=== PATIENT | male | born 1955 | race Caucasian/White ===

== ENCOUNTER 2017-10-07 13:00 | Outpatient (RCR) | payer OTHER, SELFPAY ==
[2017-03-25 15:58] VITALS: BP 150/67; PULSE 78; RESP 18; TEMP 36.8; O2SAT 97; BMI 34.2
--- NOTE | 2017-03-25 17:43 | CON.PCM_ITS ---
Consult Referring Physician: Pati Amaya Subjective Date of Service:: 03/25/17 Chief Complaint: Asked to see pt for abn labs and splenomegaly. History of Present Illness: Old Records reviewed. 61y.o.man with H/O of HTN and DM was found to have increase urine metanephrines on 749 on 02/12/2017, had a CT a/p done on 03/03/2017 which showed mild splenomegaly. He has had low Platelets for a long time with no bleeding problems and has not required transfusion. PLT was 108 on 01/27/2017. He has Gilbert's Syndrome and Bilirubin was 2.2 on 01/27/2017. He feels well. Health History: Past Medical History Past Medical History: Diabetes mellitus,Hyperlipidemia,Hypertension Other Past Medical History: VITAMIN D DEFICIENT Gilbert's Syndrome Past Surgical History Surgical: Cholecystectomy,Hernia repair,Knee arthroscopy Other Surgical History: spinal surgery cysts removed x3 Family History Paternal Past Medical History: Unknown Maternal Past Medical History: Arthritis,Diabetes mellitus,Hypertension, Obesity Social History Smoking Status Former smoker, drinks a glass of wine daily. Allergies/Adverse Reactions: Allergy/AdvReac Type Severity Reaction Status Date / Time No Known Allergies Allergy Verified 03/25/17 15:53 Home Medications Medication Instructions Recorded Amlodipine Besylate [Norvasc] 5 mg PO DAILY 03/13/17 Hydrochlorothiazide [Hctz] 12.5 mg PO DAILY 03/13/17 Liraglutide [Victoza 3-Donato] 18 units SQ DAILY 03/13/17 Lisinopril [Zestril] 20 mg PO DAILY 03/13/17 Metformin HCl [Metformin HCl ER] 750 mg PO BID 03/13/17 Simvastatin [Zocor] 10 mg PO QHS 03/13/17 Doxycycline Monohydrate [Oracea] 40 mg PO DAILY 03/25/17 Review of Systems Constitutional:: Denies: Fever, Sweats, Weight loss, Appetite change, Chills Cardiovascular:: Denies: Chest pain, Palpitations, Dyspnea on exertion, Orthopnea, PND, Shortness of breath Respiratory: Denies: Cough, Hemoptysis, Shortness of Breath, Wheezing Gastrointestinal:: Denies: Abdominal pain, Nausea, Vomiting, Diarrhea, Constipation, Hematochezia Genitourinary: Denies: Dysuria, Hematuria, 15, Flank pain Musculoskeletal:: Denies: Back pain, Myalgia, Arthralgia Skin: Denies: Rash, Skin Changes, Wounds Neurological:: Denies: Headache, Dizziness, Visual changes, Tinnitus, Hearing loss Psychiatric: Denies: Anxiety, Depression, Homicidal Ideations, Suicidal Ideations Objective Vital Signs Height 1.8 m Weight: 110.45 kg Weight in Pounds 243.0 lbs Pulse Ox 97 Temperature 98.2 F Pulse Rate 78 Respiratory Rate 18 Blood Pressure 150/67 Blood Pressure Position Sitting - Physical Exam General: Alert, Oriented x3, No apparent distress HEENT: Atraumatic, PERRLA, EOMI, Normocephalic Oropharynx:: Dry mucosa Neck:: Supple, Trachea midline. Negative for: JVD, bilateral Cardiac:: Regular rate, Regular rhythm, Normal S1, Normal S2. Negative for: Murmur Lungs: Clear to auscultation, Excusion symmetrical. Negative for: Rhonchi, Wheezes Abdomen:: Bowel sounds x 4, Soft, Non-tender, Non-distended. Negative for: Hepatosplenomegaly Extremities:: Negative for: Cyanosis, Edema Neurological: Neuro grossly intact Skin:: Negative for: Lesions, Rash, Petechiae, Ecchymosis Psychiatric:: Appropriate affect, Euthymic Lymphatics:: Negative for: Cervical lymphadenopathy, Supraclavicular lymphadenopathy, Axillary lymphadenopathy Diagnostic Data: 03/03/2017 CT a/p reviewed with Pt and , shows Splenomegaly with normal adrenal glands. Assessment and Plan Mild Splenomegaly, etiology is unclear at this time and pt is asymptomatic. Gilbert's Syndrome-stable. Increased Urine Metanephrines may be probably due to diet/Alcohol-wine, did not abstain from them before the test. Plan is to do observation. RTC 6 months with cbc, cmp, LDH. Primary Care Provider: Pati Amaya Referring Provider: (1) Splenomegaly Status: Chronic (2) Gilbert syndrome Status: Chronic
[2017-10-07 12:54] VITALS: BP 154/86; PULSE 86; RESP 16; TEMP 37.1; O2SAT 97; BMI 35.1
[2017-10-07 12:59] LABS: Absolute Lymphocyte Count 1.17 X10^3/ul (0.83-4.51); Absolute Neutrophil Count 3.6 X10^3/uL (2.0-7.7); Basophil# 0.01 X10^3/uL; Basophil% 0.2 % (0-1); Eosinophil# 0.08 X10^3/uL; Eosinophils% 1.5 % (0-5); Hematocrit 39.7 % (40-54); Hemoglobin 13.9 g/dl (13.0-16.5); Lymphocyte # 1.17 X10^3/ul (4.0); Lymphocyte % 21.4 % (19-41); Mean Corpuscular Hgb 28.9 pg (27.0-32.0); Mean Corpuscular Volume 82.5 fL (80-94); Monocyte# 0.65 X10^3/uL; Monocyte% 11.9 % (0-10); Neutrophil # 3.55 X10^3/uL (2.7-7.7); Neutrophil % 64.8 % (47-70); Platelet Count 103 K/mm3 (150-450); RBC Distribution Width CV 13.9 % (11.6-14.6); Red Blood Count 4.81 M/mm3 (4.6-6.2); White Blood Count 5.5 K/mm3 (4.4-11.0)
[2017-10-07 13:00] LABS: POSITIVE COUNT NO; POSITIVE DIFFERENTIAL NO; POSITIVE MORPHOLOGY NO
[2017-10-07 13:12] LABS: BUN 19 mg/dL (7-18); Creatinine, Serum 0.95 mg/dL (0.70-1.30); Estimated Creatinine Clearance 81.11 ml/min; Glucose 165 mg/dL (70-110)
[2017-10-07 13:13] LABS: ALB/GLOB Ratio 1.2 RATIO (0.9-2.4); AST(SGOT) 25 U/L (15-37); Alanine Aminotransfer ALT/SGPT 50 U/L (16-61); Albumin, Serum 4.2 g/dL (3.2-5.0); Alkaline Phosphatase 55 U/L (45-117); Anion Gap 10 (5-15); BUN/Creat Ratio 20.1 RATIO (10-20); Calcium,Total 9.3 mg/dL (8.5-10.1); Chloride 100 mmol/L (98-107); EST Glomerular Filtration Rate 85 mL/min (>60); Est Glom Filt Rate - Afr Amer 103 mL/min (>60); Globulin 3.4 g/dL (2.2-4.2); LDH 181 U/L (87-241); Protein, Total 7.6 g/dL (6.4-8.2); Sodium Level 136 mmol/L (136-145)
--- NOTE | 2017-10-07 13:31 | PN_ITS ---
- Date of Service Date of Service:: 10/07/17 - Chief Complaint F/u for Thrombocytopenia and splenomegaly. - History of Present Illness Old Records reviewed. 61y.o.man with H/O of HTN and DM was found to have increase urine metanephrines on 749 on 02/12/2017, had a CT a/p done on 03/03/2017 which showed mild splenomegaly and normal adrenal glands. He has had low Platelets for a long time with no bleeding problems and has never required transfusion. PLT was 108 on 01/27/2017. He has Gilbert's Syndrome and Bilirubin was 2.2 on 01/27/2017. Urine metanephrines was thought to be due to improper collection as he did not abstain from wine/alcohol. Comes for follow up. He feels well. Denies weight loss, fever, n/v or abdominal pain. - Past Medical/Social History Past Medical History Past Medical History: Diabetes mellitus,Hyperlipidemia,Hypertension Other Past Medical History: VITAMIN D DEFICIENT Kennedy Syndrome Past Surgical History Surgical: Cholecystectomy,Hernia repair,Knee arthroscopy Other Surgical History: spinal surgery cysts removed x3 Family History Paternal Past Medical History: Unknown Maternal Past Medical History: Arthritis,Diabetes mellitus,Hypertension, Obesity Social History Smoking Status Former smoker Review of Systems Constitutional:: Denies: Fever, Sweats, Weight loss, Appetite change, Chills Cardiovascular:: Denies: Chest pain, Palpitations, Dyspnea on exertion, Orthopnea, PND, Shortness of breath Respiratory: Denies: Cough, Hemoptysis, Shortness of Breath, Wheezing Gastrointestinal:: Denies: Abdominal pain, Nausea, Vomiting, Diarrhea, Constipation, Hematochezia Genitourinary: Denies: Dysuria, Hematuria, 15, Flank pain Musculoskeletal:: Denies: Back pain, Myalgia, Arthralgia Skin: Denies: Rash, Skin Changes, Wounds Neurological:: Denies: Headache, Dizziness, Visual changes, Tinnitus, Hearing loss Psychiatric: Denies: Anxiety, Depression, Homicidal Ideations, Suicidal Ideations Vital Signs Height 5 ft 10.75 in Weight: 113.398 kg Weight in Pounds 250.0 lbs Pulse Ox 97 Temperature 98.8 F Pulse Rate 86 Respiratory Rate 16 Blood Pressure 154/86 Blood Pressure Position Sitting - Physical Exam General: Alert, Oriented x3, No apparent distress Laboratory Data: Laboratory Tests 3 10/07/17 10/07/17 Range/Units 12:31 12:30 WBC 5.5 (4.4-11.0) K/mm3 RBC 4.81 (4.6-6.2) M/mm3 Hgb 13.9 (13.0-16.5) g/dl Hct 39.7 L (40-54) % MCV 82.5 (80-94) fL MCH 28.9 (27.0-32.0) pg MCHC 35.0 (32-36) g/gl RDW 13.9 (11.6-14.6) % RDW Differential 42.0 (35.1-43.9) fl Plt Count 103 L (150-450) K/mm3 MPV 9.0 (6.2-12.0) fl Immature Gran % (Auto) 0.200 (0.0-0.9) % Neut % (Auto) 64.8 (47-70) % Lymph % (Auto) 21.4 (19-41) % Guthrie % (Auto) 11.9 H (0-10) % Eos % (Auto) 1.5 (0-5) % Baso % (Auto) 0.2 (0-1) % Absolute Neuts (auto) 3.6 (2.0-7.7) X10^3/uL Absolute Lymphs (auto) 1.17 (0.83-4.51) X10^3/ul Total Counted Not Reportable Sodium 136 (136-145) mmol/L Potassium 4.0 (3.5-5.1) mmol/L Chloride 100 (98-107) mmol/L Carbon Dioxide 26.0 (21.0-32.0) mmol/L Anion Gap 10 (5-15) BUN 19 H (7-18) mg/dL Creatinine 0.95 (0.70-1.30) mg/dL Estim Creat Clear Calc 81.11 ml/min Est GFR (MDRD) Af Amer 103 (>60) mL/min Est GFR (MDRD) Non-Af 85 (>60) mL/min BUN/Creatinine Ratio 20.1 H (10-20) RATIO Glucose 165 H (70-110) mg/dL Calcium 9.3 (8.5-10.1) mg/dL Total Bilirubin 2.60 H (0.20-1.00) mg/dL AST 25 (15-37) U/L ALT 50 (16-61) U/L Alkaline Phosphatase 55 (45-117) U/L Lactate Dehydrogenase 181 (87-241) U/L Total Protein 7.6 (6.4-8.2) g/dL Albumin 4.2 (3.2-5.0) g/dL Globulin 3.4 (2.2-4.2) g/dL Albumin/Globulin Ratio 1.2 (0.9-2.4) RATIO Assessment and Plan Chronic thrombocytopenia-clinically stable, PLT 103 today. Mild splenomegaly-clinically stable. Gilbert's disease, clinically stable. Discussed clinical problems with pt, observation is appropriate now. Plan is to continue follow up with PCP, can be referred if new problems arise or Platelets decrease to 50K or less. RTC prn. Medications: Prescriptions This Visit Medication Instructions Recorded Amlodipine Besylate [Norvasc] 5 mg PO DAILY 03/13/17 Hydrochlorothiazide [Hctz] 12.5 mg PO DAILY 03/13/17 Liraglutide [Victoza 3-Donato] 18 units SQ DAILY 03/13/17 Lisinopril [Zestril] 20 mg PO DAILY 03/13/17 Metformin HCl [Metformin HCl ER] 750 mg PO BID 03/13/17 Simvastatin [Zocor] 10 mg PO QHS 03/13/17 Doxycycline Monohydrate [Oracea] 40 mg PO DAILY 03/25/17 Bupropion HCl [Bupropion Xl] 300 mg PO 10/07/17 Primary Care Provider: Pati Amaya Referring Provider: Taiwo Larkin MD (1) Splenomegaly Status: Chronic (2) Gilbert syndrome Status: Chronic Code Visit Office Visits / Consults: 00611 OV L3 Est
[2017-10-07 20:30] LABS: Xtra Tube EP Lab EXTRA TUBE
== END 2017-10-09 12:25 | disposition home or self-care (01) ==
LOC: OMD 13:00
PROVIDERS: Family Provider Internal Medicine; PCP Internal Medicine; Visit Provider Internal Medicine Medical Oncology
DX: E80.4 Gilbert syndrome (principal); R16.1 Splenomegaly, not elsewhere classified
CPT/HCPCS: 36415; 80053; 83615; 85025

== ENCOUNTER 2017-12-23 17:31 | Inpatient (IN) | payer OTHER, SELFPAY ==
[2017-12-23] VITALS (8 sets, daily range): BP systolic 124–173; BP diastolic 70–75; PULSE 95–126; RESP 17–28; TEMP 37.2–38.5; O2SAT 92–96; BMI 35.9; BMI 36.0
--- NOTE | 2017-12-23 18:02 | EKG12_ITS ---
Test Reason : COMPLAINT Blood Pressure : / mmHG Vent. Rate : 118 BPM Atrial Rate : 118 BPM P-R Int : 170 ms QRS Dur : 112 ms QT Int : 332 ms P-R-T Axes : 022 -36 046 degrees QTc Int : 465 ms Sinus tachycardia Left axis deviation Abnormal ECG Confirmed by THALIA BLANDON, FÉLIX ([id number]), editor dictionary LUIS E ROMERO ([id number]) on 12/29/2017 3:12:55 PM Referred By: CLINTON Confirmed By:FÉLIX VÁSQUEZ MD
--- NOTE | 2017-12-23 18:07 | RAD_ITS ---
STUDY: X-RAY CHEST REASON FOR EXAM: Male, 62 years old. Urinary tract infection. Nausea. Abdominal pain. TECHNIQUE: Single AP portable view of the chest. COMPARISON: None. FINDINGS: The lungs are clear and expanded. There is elevation of the right hemidiaphragm. There is no demonstrated pleural abnormality. Normal size heart. Normal mediastinum and hemalatha. Normal visualized pulmonary arteries. Normal visualized aortic arch and descending thoracic aorta. Mild degenerative change of the spine and left shoulder. There is no demonstrated abnormality of the visualized soft tissue structures of the upper abdomen. RAD/Chest 1 View (Portable) IMPRESSION: Degenerative changes, as described above. No demonstrated acute cardiopulmonary process. Electronically Signed: Demar Selby MD at 19:03 EDT , Service support ,
--- NOTE | 2017-12-23 18:20 | NURSING ---
NO OLD EKGS
[2017-12-23] MEDS: 0.9% Normal Saline 1,000 ML 150 ML IV ×2 (18:35→22:58)
[2017-12-23] MEDS: Morphine 4 MG/ML Syringe IV (18:58)
[2017-12-23 19:00] LABS: ALB/GLOB Ratio 0.9 RATIO (0.9-2.4); AST(SGOT) 28 U/L (15-37); Alanine Aminotransfer ALT/SGPT 27 U/L (16-61); Albumin, Serum 3.4 g/dL (3.2-5.0); Alkaline Phosphatase 64 U/L (45-117); Anion Gap 12 (5-15); BUN 28 mg/dL (7-18); BUN/Creat Ratio 14.7 RATIO (10-20); Calcium,Total 8.7 mg/dL (8.5-10.1); Chloride 100 mmol/L (98-107); EST Glomerular Filtration Rate 38 mL/min (>60); Est Glom Filt Rate - Afr Amer 46 mL/min (>60); Estimated Creatinine Clearance 40.56 ml/min; Globulin 3.7 g/dL (2.2-4.2); Glucose 215 mg/dL (74-106); International Normalized Ratio 1.3; Potassium 3.3 mmol/L (3.5-5.1); Protein, Total 7.1 g/dL (6.4-8.2); Prothrombin Time (Protime)PT. 16.2 SECONDS (11.7-14.9); Sodium Level 134 mmol/L (136-145)
[2017-12-23 19:01] LABS: Absolute Lymphocyte Count 0.55 X10^3/ul (0.83-4.51); Absolute Neutrophil Count 8.6 X10^3/uL (2.0-7.7); Basophil# 0.01 X10^3/uL; Basophil% 0.1 % (0-1); Eosinophil# 0.01 X10^3/uL; Eosinophils% 0.1 % (0-5); Hematocrit 34.8 % (40-54); Hemoglobin 12.4 g/dl (13.0-16.5); Lactic Acid 1.8 mmol/L (0.4-2.0); Lymphocyte # 0.55 X10^3/ul (4.0); Lymphocyte % 5.3 % (19-41); Mean Corp Hgb Conc 35.6 g/gl (32-36); Mean Corpuscular Hgb 29.7 pg (27.0-32.0); Mean Corpuscular Volume 83.3 fL (80-94); Mean Platelet Vol. 10.1 fl (6.2-12.0); Monocyte# 1.18 X10^3/uL; Monocyte% 11.4 % (0-10); Neutrophil # 8.58 X10^3/uL (2.7-7.7); Neutrophil % 82.9 % (47-70); Partial Thromboplast Time 40.1 Seconds (24.1-36.2); Platelet Count 91 K/mm3 (150-450); RBC Distribution Width CV 13.5 % (11.6-14.6); RBC Distribution Width SD 40.2 fl (35.1-43.9); Red Blood Count 4.18 M/mm3 (4.6-6.2); White Blood Count 10.4 K/mm3 (4.4-11.0)
[2017-12-23 19:02] LABS: Differential Indicated SCAN CRITERIA MET; POSITIVE COUNT NO; POSITIVE DIFFERENTIAL YES; POSITIVE MORPHOLOGY NO
[2017-12-23 19:08] LABS: Mucous, Urine 0 SEEN /hpf (<or=2+)
--- NOTE | 2017-12-23 19:09 | CT_ITS ---
STUDY: CT ABDOMEN AND PELVIS WITHOUT CONTRAST REASON FOR EXAM: Male, 62 years old. Urinary tract infection. Difficulty urinating. RADIATION DOSAGE (If Supplied By Facility): CTDIvol = ( 21.37 ) mGy, DLP = ( 1195.95 ) mGycm TECHNIQUE: Transaxial images were obtained from the dome of the diaphragm to the symphysis pubis without oral contrast, and without intravenous contrast. Sagittal and coronal images were reconstructed. Individualized dose optimization techniques were used for this CT. COMPARISON: August 07, 2016. FINDINGS: The visualized lung bases are unremarkable. The visualized portions of the heart are within normal limits. There is hepatomegaly with diffuse hepatic enlargement. There is non-visualization of the gallbladder, which may be secondary to either contraction or a prior cholecystectomy. There is moderate splenomegaly. Normal pancreas. Normal bilateral adrenal glands. Normal right kidney. Normal left kidney. No stones or hydronephrosis. Normal visualized stomach. Normal small intestine. There are multiple colonic diverticula consistent with diverticulosis. The appendix is visualized and appears normal. Normal abdominal aorta. Normal inferior vena cava. Normal retroperitoneum. Boucher catheter in the urinary bladder. There is wall thickening. There is adjacent edema. There is no free fluid in the abdomen or pelvis. Normal abdominal wall. Arthritic change of the spine, hips, and sacroiliac joints. CT/Abdomen/Pelvis without Cont IMPRESSION: Wall thickening of the urinary bladder with adjacent edema consistent with cystitis. There is no hydronephrosis. Colonic diverticulosis. No obstruction or abscess. Hepatosplenomegaly. Electronically Signed: Demar Selby MD at 20:34 EDT , Service support ,
[2017-12-23 19:11] LABS: Color, Urine Yellow (Yellow); Glucose, Dipstick Normal (Normal); Ketone-Dipstick 5 mg/dl (Negative); Leukocyte Esterase-Dipstick 500 /ul (Negative); Nitrite-Dipstick Positive (Negative); Occult Blood-Urine 150 /ul (Negative); Protein-Dipstick 500 mg/dl (Negative); Specific Gravity, Urine 1.025 (1.002-1.030); Urine Clarity Cloudy (Clear); Urine Urobilinogen 1 mg/dl (Normal)
[2017-12-23 19:13] LABS: Urine Bilirubin Dipstick 1 mg/dL (Negative)
[2017-12-23 19:15] LABS: Red Blood Cells-Urine 0-5 SEEN /hpf (0-5); Squamous Epithelial Cells - UA 0-5 SEEN /hpf (0-5); Transitional Epithelial - Ur 0-5 SEEN /hpf (0-5); White Blood Cells 50-100 SEEN /hpf (0-5)
[2017-12-23 19:16] LABS: Amorphous Sediment 1+; Bacteria 3+ /hpf (None Seen); Hyaline Cast 0-5 SEEN /lpf (0-5)
[2017-12-23 19:35] LABS: Differential Comment SCANNED
--- NOTE | 2017-12-23 22:19 | PCM.HP.STD ---
Problem List (1) Dysuria Status: Acute (2) Urinary frequency Status: Acute (3) Chills with fever Status: Acute History of Present Illness Date of Admission: 12/23/17 Chief Complaint: Chills, fever, dysuria, urinary frequency The patient is a 62 year old M seen in the emergency room at [facility] with chief complaint of fever, chills, dysuria, and urinary frequency ?2 days. Patient denied any hematuria. Patient began having symptoms while on a business trip but did not seek medical attention until he got back into town today, he was told to go to the emergency room by his family physician. Evaluation in the emergency room included labs which were remarkable for a bilirubin of 6.4, BUN was elevated at 29, creatinine was 1.9, potassium was 3.3, platelet count was 91,000, glucose was 215, and UA showed +3 bacteria and 50-100 WBCs. Patient met criteria for sepsis from acute cystitis, patient's platelet count was 91,000 but he did not meet severe sepsis criteria as he has had a low platelet count before as baseline. He has also had an increased bilirubin due to Guilbert syndrome normally.. Patient was given IV Zosyn in the emergency room, patient will be admitted to [facility], he will be placed on IV Rocephin, patient had a catheter placed in the emergency room due to low urinary output, catheter will remain in for now and I will put the patient on Flomax as he is having some urinary hesitancy at home normally. Past Medical History Past Medical History (Chronic Problems): Chronic Problems (Last Updated 09/29/17 @ 15:20 by Jessica Henry) Gilbert syndrome (Chronic) Splenomegaly (Chronic) Allergies No Known Allergies Allergy (Verified 12/23/17 17:33) Home Medications: Ambulatory Orders Medication Instructions Recorded Amlodipine Besylate [Norvasc] 5 mg PO DAILY 03/13/17 Hydrochlorothiazide [Hctz] 12.5 mg PO DAILY 03/13/17 Liraglutide [Victoza 3-Donato] 18 units SQ DAILY 03/13/17 Lisinopril [Zestril] 20 mg PO BID 03/13/17 Metformin HCl [Metformin HCl ER] 750 mg PO BID 03/13/17 Simvastatin [Zocor] 10 mg PO DAILY 03/13/17 Doxycycline Monohydrate [Oracea] 40 mg PO DAILY 03/25/17 Cholecalciferol (Vitamin D3) 5,000 unit PO DAILY 12/23/17 [Vitamin D3] Cyanocobalamin (Vitamin B-12) 5,000 mcg PO DAILY 12/23/17 [Vitamin B12] Tumeric 500 12/23/17 Surgical History: cholecystectomy, herniorrhaphy, - - Lumbar spine surgery for herniated disc, arthroscopy of the knee Psychiatric History: No pertinent psych hx Lives: Spouse/ Significant Other Smoking Status: Former smoker Tobacco Use: Non-smoker Alcohol: Occasional Drugs: None - *Family History Maternal History Items: Diabetes, Hypertension, No pertinent history Paternal History Items: No pertinent history Review of Systems Constitutional: Reports: Chills, Fever. Denies: Anorexia, Night Sweats, Malaise, Weakness, Weight Change, Fatigue Eyes: Denies: Blurred vision, Cataracts, Conjunctivae Inflammation, Double vision, Drainage HEENT: Denies: Difficulty Hearing, Difficulty Swallowing, Dysphasia, Ear Pain, Eye Pain, Head Aches, Hearing Changes, Nasal bleeding, Nasal Congestion, Post Nasal Drip Cardiovascular: Denies: Chest Pain, Claudication, Chest Pressure, Chest Tightness, Edema, Orthopnea, Palpitations, Paroxysmal Noc. Dyspnea Respiratory: Denies: Hemoptysis, Pleuritic Pain, Shortness of Breath, Shortness of breath upon exertion, Sputum production, Wheezing Gastrointestinal: Denies: Abdominal Pain, Constipation, Diarrhea, Hematemesis, Hematochezia, Nausea Genitourinary: Reports: Dysuria, Frequency, Hesitancy, Urgency. Denies: Hematuria, Incontinence, Nocturia, Retention Musculoskeletal: Denies: Arm Pain, Back Pain, Foot Pain, Hand Pain, Joint stiffness, Joint swelling, Joint Tenderness Skin: Denies: Dryness, Jaundice, Pruritis, Rash Neurological: Denies: Blurred vision, Double vision, Change in Speech, Slurred speech, Focal weakness, Headaches, Incoordination, Numbness Psychiatric: Denies: Anxiety, Depression, Homicidal Ideations, Suicidal Ideations Endocrine: Denies: Change in Body Habitus, Heat/ Cold Intolerance, Polydipsia, Polyuria, Hx of Irradiation Hematologic/ Lymphatic: Denies: Adenopathy, Easy Bruising, Petechiae, Purpura VTE Information - Inpt Only VTE Present on Admission: No VTE Mechan Device Prophylaxis: SCD's VTE Pharm Prophylaxis ordered?: No Reason prophylaxis not ordered:: Treatment Not Indicated Patient Problems: Active and Suspected Problems (Last Updated 09/29/17 @ 15:20 by Jessica Henry) Dysuria (Acute) Urinary frequency (Acute) Chills with fever (Acute) - Physical Exam General: Alert, Oriented x3, Cooperative, No apparent distress, Well developed, Well nourished HEENT: Atraumatic, PERRLA, EOMI, Normocephalic Oral: Moist Mucosa Neck: Supple, No JVD, Negative Carotid Bruits, No Nuchal Rigidity, Trachea Midline, Thyroid Normal Size and Texture Lungs: Clear to auscultation, Normal air movement, No rhonchi, No wheeze, No rales Cardiovascular: Regular rate, Regular Rhythm, Normal S1, Normal S2, No murmurs, No Ectopic Activity, PMI Normal, No rub noted, No Gallop Abdomen: Bowel Sounds Present, Soft, Non Tender, Non-Distended, No hernias noted Extremities: No clubbing, No cyanosis, No edema, Capillary Refill Less than 3 Seconds Skin: No rashes, No breakdown Musculoskeletal: No Tenderness to Palpation of Joints or Extremities, No Muscle Wasting Neurological: Cranial nerves II-XII grossly intact, Neuro grossly intact, Muscle tone normal, Sensory exam intact to light touch and pain, Coordination normal Psych/Mental Status: Normal Affect, Appropriate, Alert and oriented to time, place, person, mood and affect Vital Signs Temp Pulse Resp BP Pulse Ox 99.3 F H 100 28 H 124/75 H 92 12/23/17 18:31 12/23/17 22:00 12/23/17 22:00 12/23/17 22:00 12/23/17 22:00 Oxygen Delivery Method Room Air Assessment/Plan Active and Suspected Problems (Last Updated 09/29/17 @ 15:20 by Jessica Henry) Dysuria (Acute) Urinary frequency (Acute) Chills with fever (Acute) #1 acute sepsis secondary to acute cystitis-patient will be admitted to [facility], IV Rocephin will be administered, labs will be monitored, fluids will be administered. #2 acute cystitis-probably secondary to gram-negative bacteria, patient will be placed on Rocephin IV #3 thrombocytopenia-chronic #4 acute kidney injury-patient will be given IV fluids, labs will be rechecked, patient will be kept off his hydrochlorothiazide #5 Hyperbilirubinemia secondary to Gilbert's syndrome #6 type 2 diabetes-patient will be kept on metformin, sliding scale insulin will be given, his Victoza will be held #7 BPH-patient will be placed on Flomax Code Visit Inpatient E&M: 60782 Init Hosp L3
[2017-12-23 22:41] LABS: Bedside Glucose 177 mg/dL (70-110)
[2017-12-23] MEDS: Lisinopril 20 MG Tablet PO (23:10)
[2017-12-23] MEDS: Tamsulosin HCl 0.4 MG Capsule PO (23:10)
[2017-12-24] MEDS: Acetaminophen 325 MG Tablet 650 MG PO ×3 (00:19→18:11)
[2017-12-24 04:37] VITALS: BP 130/66; PULSE 78; RESP 16; TEMP 36.6; O2SAT 93
[2017-12-24] MEDS: 0.9% NaCl Peripheral Flush Adult/Peds IV (04:40)
[2017-12-24] MEDS: 0.9% Normal Saline 1,000 ML 150 ML IV ×3 (04:41→18:10)
[2017-12-24 04:48] LABS: Absolute Lymphocyte Count 1.02 X10^3/ul (0.83-4.51); Absolute Neutrophil Count 6.3 X10^3/uL (2.0-7.7); Basophil# 0.01 X10^3/uL; Basophil% 0.1 % (0-1); Eosinophil# 0.06 X10^3/uL; Eosinophils% 0.7 % (0-5); Hematocrit 29.1 % (40-54); Hemoglobin 10.4 g/dl (13.0-16.5); Lymphocyte # 1.02 X10^3/ul (4.0); Lymphocyte % 12.1 % (19-41); Mean Corp Hgb Conc 35.7 g/gl (32-36); Mean Corpuscular Hgb 30.1 pg (27.0-32.0); Mean Corpuscular Volume 84.3 fL (80-94); Mean Platelet Vol. 9.1 fl (6.2-12.0); Monocyte# 1.05 X10^3/uL; Monocyte% 12.5 % (0-10); Neutrophil # 6.26 X10^3/uL (2.7-7.7); Neutrophil % 74.2 % (47-70); Platelet Count 68 K/mm3 (150-450); RBC Distribution Width CV 13.5 % (11.6-14.6); RBC Distribution Width SD 39.9 fl (35.1-43.9); Red Blood Count 3.45 M/mm3 (4.6-6.2); White Blood Count 8.4 K/mm3 (4.4-11.0)
[2017-12-24 04:50] LABS: POSITIVE COUNT NO; POSITIVE DIFFERENTIAL NO; POSITIVE MORPHOLOGY NO
[2017-12-24 05:19] LABS: AST(SGOT) 23 U/L (15-37); Alanine Aminotransfer ALT/SGPT 24 U/L (16-61); Albumin, Serum 2.6 g/dL (3.2-5.0); Alkaline Phosphatase 49 U/L (45-117); Anion Gap 10 (5-15); BUN 30 mg/dL (7-18); BUN/Creat Ratio 18.4 RATIO (10-20); Bilirubin, Direct 0.61 mg/dL (0.00-0.30); Calcium,Total 7.9 mg/dL (8.5-10.1); Chloride 103 mmol/L (98-107); Creatinine, Serum 1.63 mg/dL (0.70-1.30); EST Glomerular Filtration Rate 45 mL/min (>60); Est Glom Filt Rate - Afr Amer 55 mL/min (>60); Estimated Creatinine Clearance 47.27 ml/min; Globulin 3.2 g/dL (2.2-4.2); Glucose 150 mg/dL (74-106); Potassium 2.9 mmol/L (3.5-5.1); Protein, Total 5.8 g/dL (6.4-8.2); Sodium Level 137 mmol/L (136-145)
[2017-12-24 07:00] LABS: Bedside Glucose 191 mg/dL (70-110)
[2017-12-24 09:34] VITALS: BP 130/70; PULSE 86; RESP 16; TEMP 36.9; O2SAT 96
--- NOTE | 2017-12-24 09:42 | PN_ITS ---
Patient Problems: Active and Suspected Problems (Last Updated 09/29/17 @ 15:20 by Jessica Henry) Dysuria (Acute) Urinary frequency (Acute) Chills with fever (Acute) Subjective: Is a 62-year-old male with a past medical history of Gillbert's syndrome, DM II , chronic thrombocytopenia and splenomegaly who presented to the emergency room at [facility] on 12/23/2017 complaining of fever, chills, dysuria and urinary frequency. Vital signs at presentation to the emergency room were temperature 101.3, pulse rate 126, blood pressure 173/73, respiratory rate 18 and he was 95% saturated on room air. White blood cell count was 10.4 with a left shift. Hemoglobin is low at 12.4 and platelets were low at 91,000. Review of old records shows that platelets are chronically low. Potassium was low at 3.3 and the BUN was 28 with a creatinine of 1.9. Creatinine in September 2017 was 0.95. Blood and urine cultures were sent from the emergency room. Chest x-ray shows no evidence of infiltrates or pleural effusions. CT scan of the abdomen showed wall thickening of the urinary bladder with adjacent edema consistent with cystitis. There is no evidence of hydronephrosis. He does have colonic diverticulosis and hepatosplenomegaly. He was admitted to the hospital with severe sepsis with acute kidney injury and started on Rocephin. Temp today is 97.8. Vital signs are stable. He is 93-95% saturated on room air. Fluid balance is +577 since admission. Lab was personally reviewed. White blood cell count is 8.4 with 74% neutrophils today. Hemoglobin is 10.4 and platelets are 68,000, down from 91, 000 at admission. Sodium is normal today but the potassium is 2.9. Creatinine has decreased to 1.63 with hydration. Total bilirubin is 4, down from 6.4 at admission and he has a known history of Gilbert's disease. Tells me that he has had a urethral dilation in the past. He feels he does not completely empty his bladder. Has not seen a urologist in the past several years. PSA 2 years ago was normal. Denies N/V/D/abdominal pain/back pain. No cough and no SOB. No pelvic pain. - Physical Exam General: Alert, Oriented x3, Cooperative, No apparent distress, Well developed, Well nourished HEENT: Atraumatic, PERRLA, EOMI, Normocephalic, - - he has scleral icterus Oral: No Gingival or Mucosal Lesions/ Ulcerations, Dry Mucosa Neck: Supple, No Nodes, Trachea Midline Lungs: Clear to auscultation, No rhonchi, No wheeze, No rales Cardiovascular: Regular rate, Regular Rhythm, Normal S1, Normal S2, No murmurs, No rub noted, No Gallop Abdomen: Bowel Sounds Present, Soft, Non Tender, Non-Distended, Obese, - - negative flank pain Extremities: No clubbing, No cyanosis, No edema Skin: No rashes, - - + jaundice Neurological: Cranial nerves II-XII grossly intact, Neuro grossly intact Psych/Mental Status: Normal Affect, Appropriate Vital Signs Temp Pulse Resp BP Pulse Ox 97.8 F 78 16 130/66 H 93 12/24/17 04:37 12/24/17 04:37 12/24/17 04:37 12/24/17 04:37 12/24/17 04:37 Oxygen Delivery Method Room Air Weight: 250 lb 14.177 oz Body Mass Index (BMI) 36.0 Intake and Output for Last 24 Hours 12/22/17 12/23/17 12/24/17 23:59 23:59 23:59 Intake Total 176 / 176 701 / 701 Output Total 150 / 150 150 / 150 Balance 551 / 551 Laboratory Tests Past 24 Hrs 12/24/17 12/24/17 04:40 04:40 WBC 8.4 RBC 3.45 L Hgb 10.4 L Hct 29.1 L MCV 84.3 MCH 30.1 MCHC 35.7 RDW 13.5 RDW Differential 39.9 Plt Count 68 L MPV 9.1 Immature Gran % (Auto) 0.400 Neut % (Auto) 74.2 H Lymph % (Auto) 12.1 L Lipscomb % (Auto) 12.5 H Eos % (Auto) 0.7 Baso % (Auto) 0.1 Absolute Neuts (auto) 6.3 Absolute Lymphs (auto) 1.02 Total Counted Not Reportable Sodium 137 Potassium 2.9 L Chloride 103 Carbon Dioxide 24.0 Anion Gap 10 BUN 30 H Creatinine 1.63 H Estim Creat Clear Calc 47.27 Est GFR (MDRD) Af Amer 55 L Est GFR (MDRD) Non-Af 45 L BUN/Creatinine Ratio 18.4 Glucose 150 H Calcium 7.9 L Total Bilirubin 4.00 H Direct Bilirubin 0.61 H AST 23 ALT 24 Alkaline Phosphatase 49 Total Protein 5.8 L Albumin 2.6 L Globulin 3.2 POC Glucose 12/24/17 12/23/17 06:52 22:32 POC Glucose 191 H 177 H Medical Necessity - Tobacco Use Smoking Status: Former smoker Tobacco Use: Non-smoker Assessment/Plan Active and Suspected Problems (Last Updated 09/29/17 @ 15:20 by Jessica Henry) Dysuria (Acute) Urinary frequency (Acute) Chills with fever (Acute) Impressions 1. Severe sepsis due to UTI with SWAPNA 2. SWAPNA due to sepsis 3. probable BPH - ? obstruction? Catheter was placed in the ER due to low urine output.....not for high residual? Started on Flomax. 4. Hx of a urethral stricture in the past- S/P remote dilation 5. Gilbert's disease with jaundice and scleral icterus 6. splenomegaly 7. HTN 8. DM [id number] with a hemoglobin A1c of 6.9 9. morbid obesity 10. Hypokalemia 11. Chronic thrombocytopenia-likely related to splenomegaly 12. Normochromic normocytic anemia of unknown etiology Supplement the potassium check a MAG continue hydration Continue Rocephin Recheck lab in the a.m. SCDs and heparin 5000 units twice daily for DVT prophylaxis. Will need to monitor platelets closely. Await the results of the culture Voiding trial prior to DC.....if he retains will need to follow up with urology because he may have a recurrent urethral stricture...there is thickening of the bladder wall. Code Visit Inpatient E&M: 50408 Subs Hosp L3
[2017-12-24 10:03] LABS: Magnesium 1.9 mg/dL (1.6-2.6)
[2017-12-24] MEDS: amLODIPine 5 MG Tablet PO (10:16)
[2017-12-24] MEDS: Lisinopril 20 MG Tablet PO ×2 (10:16→21:32)
[2017-12-24 10:17] LABS: Hemoglobin A1c 6.9 % (4.2-6.3)
[2017-12-24] MEDS: Heparin Injection (Vial) 5,000 UNIT/ML VIAL 5000 UNIT SC ×2 (10:47→21:31)
[2017-12-24 12:51] LABS: Bedside Glucose 272 mg/dL (70-110)
[2017-12-24 14:24] VITALS: BP 116/64; PULSE 87; RESP 16; TEMP 37.3; O2SAT 95
--- NOTE | 2017-12-24 14:39 | CASEMGMT ---
See RN CM Assessment Link. DC Plan: Home. Pt denies dc needs. Guillermo MADRIGAL RN ACM
[2017-12-24] MEDS: Tamsulosin HCl 0.4 MG Capsule PO (17:11)
[2017-12-24 17:51] VITALS: BP 142/83; PULSE 94; RESP 16; TEMP 36.9; O2SAT 97
[2017-12-24 19:03] VITALS: TEMP 37.7
[2017-12-24 19:54] VITALS: BP 140/73; PULSE 95; RESP 18; TEMP 37; O2SAT 93
[2017-12-24] MEDS: Atorvastatin Calcium 10 MG Tablet 5 MG PO (21:31)
[2017-12-24 21:41] LABS: Bedside Glucose 244 mg/dL (70-110)
[2017-12-24 22:51] LABS: Bedside Glucose 193 mg/dL (70-110)
[2017-12-25] MEDS: 0.9% Normal Saline 1,000 ML 150 ML IV ×2 (00:14→06:09)
[2017-12-25] MEDS: Acetaminophen 325 MG Tablet 650 MG PO ×3 (00:14→12:16)
[2017-12-25 02:30] VITALS: BP 130/75; PULSE 78; RESP 16; TEMP 36.9; O2SAT 97
[2017-12-25 07:16] LABS: Bedside Glucose 186 mg/dL (70-110)
[2017-12-25 07:37] LABS: Hematocrit 30.2 % (40-54); Hemoglobin 10.7 g/dl (13.0-16.5); Mean Corp Hgb Conc 35.4 g/gl (32-36); Mean Corpuscular Hgb 29.6 pg (27.0-32.0); Mean Corpuscular Volume 83.4 fL (80-94); Mean Platelet Vol. 9.8 fl (6.2-12.0); Platelet Count 71 K/mm3 (150-450); RBC Distribution Width SD 38.8 fl (35.1-43.9); Red Blood Count 3.62 M/mm3 (4.6-6.2); White Blood Count 3.9 K/mm3 (4.4-11.0)
[2017-12-25 07:43] LABS: Scan Indicated on CBC? Y/N NO
[2017-12-25 07:49] LABS: Anion Gap 9 (5-15); BUN 17 mg/dL (7-18); BUN/Creat Ratio 18.7 RATIO (10-20); Calcium,Total 7.9 mg/dL (8.5-10.1); Chloride 106 mmol/L (98-107); Creatinine, Serum 0.91 mg/dL (0.70-1.30); EST Glomerular Filtration Rate 89 mL/min (>60); Est Glom Filt Rate - Afr Amer 108 mL/min (>60); Estimated Creatinine Clearance 84.68 ml/min; Glucose 180 mg/dL (74-106); Potassium 3.2 mmol/L (3.5-5.1); Sodium Level 138 mmol/L (136-145)
[2017-12-25] MEDS: Lisinopril 20 MG Tablet PO (09:15)
[2017-12-25] MEDS: amLODIPine 5 MG Tablet PO (09:15)
[2017-12-25] MEDS: Heparin Injection (Vial) 5,000 UNIT/ML VIAL 5000 UNIT SC (09:15)
[2017-12-25 11:11] LABS: Bedside Glucose 325 mg/dL (70-110)
--- NOTE | 2017-12-25 12:29 | DCINST_ITS ---
- Discharge Diagnoses Current Active Problems: Current Active and Chronic Problems (Last Updated 09/29/17 @ 15:20 by Jessica Henry) Dysuria (Acute) Urinary frequency (Acute) Chills with fever (Acute) You will use the following diet at home:: Calorie/Carbohydrate Controlled ( specify 1200, 1400, etc), Cardiac Your food should be the consistency of: Regular Your liquids should be the consistency of: Regular/Thin Discharge Activity: Return to Normal Activity Call your doctor if you observe: Fever of 101 or Higher, Inability to urinate, Shortness of breath, Dizziness, Fainting spells, Swelling in the ankles, Chest pain, - - rash, severe diarrhea, sore mouth, painful swallowing Additional Instructions: Make sure to finish ALL of the Antibiotic or the bacteria may not be totally erradicated and the infection will come back and may learn to be resistant to the bacteria. If you get a probiotic, available OTC at any drugstore, and take this daily while on the antibiotic you will be less likely to have diarrhea. If you continue to have a problem with urinating or pain with intercourse follow up with Dr. Costa who is a urologist. I have started you on Flomax which is a medication to help the urine flow better. Allergies/Adverse Reactions: Allergies No Known Allergies Allergy (Verified 12/23/17 17:33) Medications to take at Discharge Amlodipine Besylate [Norvasc] 5 mg PO DAILY 03/13/17 Liraglutide [Victoza] 18 units SQ DAILY 03/13/17 Lisinopril [Zestril] 20 mg PO BID 03/13/17 Metformin HCl [Metformin HCl ER] 750 mg PO BID 03/13/17 Simvastatin [Zocor] 10 mg PO DAILY 03/13/17 Doxycycline Monohydrate [Oracea] 40 mg PO DAILY 03/25/17 Cholecalciferol (Vitamin D3) [Vitamin D3] 5,000 unit PO DAILY 12/23/17 Cyanocobalamin (Vitamin B-12) [Vitamin B12] 5,000 mcg PO DAILY 12/23/17 Tumeric 500 12/23/17 Levofloxacin [Levaquin] 500 mg PO DAILY #8 tab 12/25/17 Potassium Chloride [K-Dur] 20 meq PO BID #7 tab 12/25/17 Tamsulosin HCl [Flomax] 0.4 mg PO DAILY@1730 #30 cap 12/25/17 The following prescriptions were given: Levofloxacin [Levaquin] 500 mg PO DAILY #8 tab Tamsulosin HCl [Flomax] 0.4 mg PO DAILY@1730 #30 cap Potassium Chloride [K-Dur] 20 meq PO BID #7 tab Primary Care Physician: Pati Amaya DO [Primary Care Provider] - Please follow up with your Primary Care Physician in: 1-2 weeks Please Follow Up With: Braydon Costa MD - urologist When: as needed for trouble urinating Proposed Discharge Date: 12/25/17
--- NOTE | 2017-12-25 12:32 | PCM.DC.SUM ---
Discharge Date and Diagnosis - Problem List Patient Problems: Active and Suspected Problems (Last Updated 09/29/17 @ 15:20 by Jessica Henry) BPH (benign prostatic hyperplasia) (Suspected) Hypokalemia (Acute) Jaundice (Acute) Pyelonephritis (Acute) Severe sepsis (Acute) Date of Admission: 12/23/17 Date of Discharge: 12/25/17 - Primary Discharge Diagnosis Active and Suspected Problems (Last Updated 09/29/17 @ 15:20 by Jessica Henry) Severe sepsis (Acute) with SWAPNA Pyelonephritis-secondary to E. coli BPH (benign prostatic hyperplasia) (Suspected) Hypokalemia (Acute) Jaundice (Acute) - Secondary Discharge Diagnosis Chronic Problems (Last Updated 09/29/17 @ 15:20 by Jessica Henry) Personal history of urethral stricture (Chronic) - dilated in the past Normochromic normocytic anemia (Chronic) Thrombocytopenia (Chronic) - likely related to splenomegaly Morbid obesity (Chronic) Diabetes mellitus type 2 in obese (Chronic) - controlled, HGBA1C is 6.9% Gilbert syndrome (Chronic) Splenomegaly (Chronic) Hospital Course and Treatment Imaging Results: Clinical Impression(s) from Imaging Studies Chest X-Ray 12/23/17 18:07 IMPRESSION: Degenerative changes, as described above. No demonstrated acute cardiopulmonary process. Electronically Signed: Demar Selby MD at 19:03 EDT , Service support , Abdomen/Pelvis CT 12/23/17 19:09 IMPRESSION: Wall thickening of the urinary bladder with adjacent edema consistent with cystitis. There is no hydronephrosis. Colonic diverticulosis. No obstruction or abscess. Hepatosplenomegaly. Electronically Signed: Demar Selby MD at 20:34 EDT , Service support , Laboratory Tests 12/23/17 12/23/17 12/23/17 18:19 18:19 18:19 WBC 10.4 RBC 4.18 L Hgb 12.4 L Hct 34.8 L MCV 83.3 MCH 29.7 MCHC 35.6 RDW 13.5 RDW Differential 40.2 Plt Count 91 L MPV 10.1 Immature Gran % (Auto) 0.200 Neut % (Auto) 82.9 H Lymph % (Auto) 5.3 L [place] % (Auto) 11.4 H Eos % (Auto) 0.1 Baso % (Auto) 0.1 Absolute Neuts (auto) 8.6 H Absolute Lymphs (auto) 0.55 L Total Counted Not Reportable Differential Comment SCANNED PT 16.2 H INR 1.3 APTT 40.1 H Sodium 134 L Potassium 3.3 L Chloride 100 Carbon Dioxide 22.0 Anion Gap 12 BUN 28 H Creatinine 1.90 H Estim Creat Clear Calc 40.56 Est GFR (MDRD) Af Amer 46 L Est GFR (MDRD) Non-Af 38 L BUN/Creatinine Ratio 14.7 Glucose 215 H Hemoglobin A1c Lactic Acid Calcium 8.7 Magnesium Total Bilirubin 6.40 H Direct Bilirubin AST 28 ALT 27 Alkaline Phosphatase 64 Total Protein 7.1 Albumin 3.4 Globulin 3.7 Albumin/Globulin Ratio 0.9 Urine Color Urine Clarity Urine pH Ur Specific [place] Urine Protein Urine Glucose (UA) Urine Ketones Urine Occult Blood Urine Nitrite Urine Bilirubin Urine Urobilinogen Ur Leukocyte Esterase Urine RBC Urine WBC Ur Squamous Epith Cells Ur Transition Epith Cell Amorphous Sediment Urine Bacteria Hyaline Casts Urine Mucus POC Glucose 12/23/17 12/23/17 12/23/17 18:19 18:55 22:32 WBC RBC Hgb Hct MCV MCH MCHC RDW RDW Differential Plt Count MPV Immature Gran % (Auto) Neut % (Auto) Lymph % (Auto) [place] % (Auto) Eos % (Auto) Baso % (Auto) Absolute Neuts (auto) Absolute Lymphs (auto) Total Counted Differential Comment PT INR APTT Sodium Potassium Chloride Carbon Dioxide Anion Gap BUN Creatinine Estim Creat Clear Calc Est GFR (MDRD) Af Amer Est GFR (MDRD) Non-Af BUN/Creatinine Ratio Glucose Hemoglobin A1c Lactic Acid 1.8 Calcium Magnesium Total Bilirubin Direct Bilirubin AST ALT Alkaline Phosphatase Total Protein Albumin Globulin Albumin/Globulin Ratio Urine Color Yellow Urine Clarity Cloudy Urine pH 6.0 Ur Specific [place] 1.025 Urine Protein 500 H Urine Glucose (UA) Normal Urine Ketones 5 H Urine Occult Blood 150 H Urine Nitrite Positive H Urine Bilirubin 1 H Urine Urobilinogen 1 H Ur Leukocyte Esterase 500 H Urine RBC 0-5 SEEN Urine WBC 50-100 SEEN Ur Squamous Epith Cells 0-5 SEEN Ur Transition Epith Cell 0-5 SEEN Amorphous Sediment 1+ Urine Bacteria 3+ Hyaline Casts 0-5 SEEN Urine Mucus 0 SEEN POC Glucose 177 H 12/24/17 12/24/17 12/24/17 04:40 04:40 04:40 WBC 8.4 RBC 3.45 L Hgb 10.4 L Hct 29.1 L MCV 84.3 MCH 30.1 MCHC 35.7 RDW 13.5 RDW Differential 39.9 Plt Count 68 L MPV 9.1 Immature Gran % (Auto) 0.400 Neut % (Auto) 74.2 H Lymph % (Auto) 12.1 L [place] % (Auto) 12.5 H Eos % (Auto) 0.7 Baso % (Auto) 0.1 Absolute Neuts (auto) 6.3 Absolute Lymphs (auto) 1.02 Total Counted Not Reportable Differential Comment PT INR APTT Sodium 137 Potassium 2.9 L Chloride 103 Carbon Dioxide 24.0 Anion Gap 10 BUN 30 H Creatinine 1.63 H Estim Creat Clear Calc 47.27 Est GFR (MDRD) Af Amer 55 L Est GFR (MDRD) Non-Af 45 L BUN/Creatinine Ratio 18.4 Glucose 150 H Hemoglobin A1c Lactic Acid Calcium 7.9 L Magnesium 1.9 Total Bilirubin 4.00 H Direct Bilirubin 0.61 H AST 23 ALT 24 Alkaline Phosphatase 49 Total Protein 5.8 L Albumin 2.6 L Globulin 3.2 Albumin/Globulin Ratio Urine Color Urine Clarity Urine pH Ur Specific [place] Urine Protein Urine Glucose (UA) Urine Ketones Urine Occult Blood Urine Nitrite Urine Bilirubin Urine Urobilinogen Ur Leukocyte Esterase Urine RBC Urine WBC Ur Squamous Epith Cells Ur Transition Epith Cell Amorphous Sediment Urine Bacteria Hyaline Casts Urine Mucus POC Glucose 12/24/17 12/24/17 12/24/17 04:40 06:52 12:42 WBC RBC Hgb Hct MCV MCH MCHC RDW RDW Differential Plt Count MPV Immature Gran % (Auto) Neut % (Auto) Lymph % (Auto) [place] % (Auto) Eos % (Auto) Baso % (Auto) Absolute Neuts (auto) Absolute Lymphs (auto) Total Counted Differential Comment PT INR APTT Sodium Potassium Chloride Carbon Dioxide Anion Gap BUN Creatinine Estim Creat Clear Calc Est GFR (MDRD) Af Amer Est GFR (MDRD) Non-Af BUN/Creatinine Ratio Glucose Hemoglobin A1c 6.9 H Lactic Acid Calcium Magnesium Total Bilirubin Direct Bilirubin AST ALT Alkaline Phosphatase Total Protein Albumin Globulin Albumin/Globulin Ratio Urine Color Urine Clarity Urine pH Ur Specific [place] Urine Protein Urine Glucose (UA) Urine Ketones Urine Occult Blood Urine Nitrite Urine Bilirubin Urine Urobilinogen Ur Leukocyte Esterase Urine RBC Urine WBC Ur Squamous Epith Cells Ur Transition Epith Cell Amorphous Sediment Urine Bacteria Hyaline Casts Urine Mucus POC Glucose 191 H 272 H 12/24/17 12/24/17 12/25/17 17:17 21:29 07:01 WBC RBC Hgb Hct MCV MCH MCHC RDW RDW Differential Plt Count MPV Immature Gran % (Auto) Neut % (Auto) Lymph % (Auto) [place] % (Auto) Eos % (Auto) Baso % (Auto) Absolute Neuts (auto) Absolute Lymphs (auto) Total Counted Differential Comment PT INR APTT Sodium Potassium Chloride Carbon Dioxide Anion Gap BUN Creatinine Estim Creat Clear Calc Est GFR (MDRD) Af Amer Est GFR (MDRD) Non-Af BUN/Creatinine Ratio Glucose Hemoglobin A1c Lactic Acid Calcium Magnesium Total Bilirubin Direct Bilirubin AST ALT Alkaline Phosphatase Total Protein Albumin Globulin Albumin/Globulin Ratio Urine Color Urine Clarity Urine pH Ur Specific [place] Urine Protein Urine Glucose (UA) Urine Ketones Urine Occult Blood Urine Nitrite Urine Bilirubin Urine Urobilinogen Ur Leukocyte Esterase Urine RBC Urine WBC Ur Squamous Epith Cells Ur Transition Epith Cell Amorphous Sediment Urine Bacteria Hyaline Casts Urine Mucus POC Glucose 193 H 244 H 186 H 12/25/17 12/25/17 12/25/17 07:12 07:12 10:53 WBC 3.9 L RBC 3.62 L Hgb 10.7 L Hct 30.2 L MCV 83.4 MCH 29.6 MCHC 35.4 RDW 13.0 RDW Differential 38.8 Plt Count 71 L MPV 9.8 Immature Gran % (Auto) Neut % (Auto) Lymph % (Auto) [place] % (Auto) Eos % (Auto) Baso % (Auto) Absolute Neuts (auto) Absolute Lymphs (auto) Total Counted Differential Comment PT INR APTT Sodium 138 Potassium 3.2 L Chloride 106 Carbon Dioxide 23.0 Anion Gap 9 BUN 17 Creatinine 0.91 Estim Creat Clear Calc 84.68 Est GFR (MDRD) Af Amer 108 Est GFR (MDRD) Non-Af 89 BUN/Creatinine Ratio 18.7 Glucose 180 H Hemoglobin A1c Lactic Acid Calcium 7.9 L Magnesium Total Bilirubin Direct Bilirubin AST ALT Alkaline Phosphatase Total Protein Albumin Globulin Albumin/Globulin Ratio Urine Color Urine Clarity Urine pH Ur Specific [place] Urine Protein Urine Glucose (UA) Urine Ketones Urine Occult Blood Urine Nitrite Urine Bilirubin Urine Urobilinogen Ur Leukocyte Esterase Urine RBC Urine WBC Ur Squamous Epith Cells Ur Transition Epith Cell Amorphous Sediment Urine Bacteria Hyaline Casts Urine Mucus POC Glucose 325 H Microbiology 12/23/17 18:55 Urine Catheter - Catheter Urine Culture - Final Presumptive E. coli 12/24/17 11:50 Stool C. difficile DNA Amplification - Final none Operations: None Procedures: None Summary of Care Provided: Mr. Christina is a 62-year-old male with a past medical history of Gillbert's syndrome, DM II, chronic thrombocytopenia, urethral stricture, HTN, diverticulosis and splenomegaly who presented to the emergency room at [facility] on 12/23/2017 complaining of fever, chills, dysuria and urinary frequency. He denied pelvic pain. Sx had been present for a few days. Vital signs at presentation to the emergency room were temperature 101.3, pulse rate 126, blood pressure 173/73, respiratory rate 18 and he was 95% saturated on room air. White blood cell count was 10.4 with a left shift. Hemoglobin was low at 12.4 and platelets were low at 91,000. Review of old records showed that platelets are chronically low. Potassium was low at 3.3 and the BUN was 28 with a creatinine of 1.9. Creatinine in September 2017 was 0.95. Blood and urine cultures were sent from the emergency room. Chest x-ray showed no evidence of infiltrates or pleural effusions. CT scan of the abdomen showed wall thickening of the urinary bladder with adjacent edema consistent with cystitis. There was no evidence of hydronephrosis. He had colonic diverticulosis and hepatosplenomegaly. He was admitted to the hospital with severe sepsis with acute kidney injury and started on Rocephin. IV fluids and Potassium supplementation were ordered. Urine culture was positive for E. Coli and it was resistant to Unasyn, ampicillin, Augmentin and Bactrim. Blood cultures have had no growth but the report will not be finalized until 12/26. He was unable to urinate in the ED and a biswas cath was inserted. He complained of nocturia and at times did not feel as though he completely emptied his bladder. His stream is slower than it used to be. He does have a hx of a urethral stricture in the past that had to be dilated. He was started on Flomax at admission and a voiding trial was done on the day of DC. He had 0 residual when urinating after the Biswas was removed. He was discharged home on Levaquin 500 mg daily to complete a total of 10 days of treatment. He was given a RX for Flomax 0.4 mg daily. If he has any additional difficulties with urination or with pain after sex he will follow up with Dr. Costa. He will follow up with Dr. Amaya in the office in 1-2 weeks. - Physical Exam General: Alert, Oriented x3, Cooperative, No apparent distress, Well developed, Well nourished HEENT: Atraumatic, PERRLA, EOMI, Normocephalic, - - he has scleral icterus Oral: No Gingival or Mucosal Lesions/ Ulcerations, Dry Mucosa Neck: Supple, No Nodes, Trachea Midline Lungs: Clear to auscultation, No rhonchi, No wheeze, No rales Cardiovascular: Regular rate, Regular Rhythm, Normal S1, Normal S2, No murmurs, No rub noted, No Gallop Abdomen: Bowel Sounds Present, Soft, Non Tender, Non-Distended, Obese, - - negative flank pain Extremities: No clubbing, No cyanosis, No edema Skin: No rashes, - - + jaundice Neurological: Cranial nerves II-XII grossly intact, Neuro grossly intact Psych/Mental Status: Normal Affect, Appropriate This note was generated with [employer] dictation software. It may contain incorrect words, spelling, and punctuation that were not noted in checking the note before signing. Discharge Activity: Return to Normal Activity Call your doctor if you observe: Fever of 101 or Higher, Inability to urinate, Shortness of breath, Dizziness, Fainting spells, Swelling in the ankles, Chest pain, - - rash, severe diarrhea, sore mouth, painful swallowing Home Medications: Medications to take at Discharge Amlodipine Besylate [Norvasc] 5 mg PO DAILY 03/13/17 Liraglutide [Victoza] 18 units SQ DAILY 03/13/17 Lisinopril [Zestril] 20 mg PO BID 03/13/17 Metformin HCl [Metformin HCl ER] 750 mg PO BID 03/13/17 Simvastatin [Zocor] 10 mg PO DAILY 03/13/17 Doxycycline Monohydrate [Oracea] 40 mg PO DAILY 03/25/17 Cholecalciferol (Vitamin D3) [Vitamin D3] 5,000 unit PO DAILY 12/23/17 Cyanocobalamin (Vitamin B-12) [Vitamin B12] 5,000 mcg PO DAILY 12/23/17 Tumeric 500 12/23/17 Levofloxacin [Levaquin] 500 mg PO DAILY #8 tab 12/25/17 Potassium Chloride [K-Dur] 20 meq PO BID #7 tab 12/25/17 Tamsulosin HCl [Flomax] 0.4 mg PO DAILY@1730 #30 cap 12/25/17 Following Prescrptions Were Given to Patient: Levofloxacin [Levaquin] 500 mg PO DAILY #8 tab Tamsulosin HCl [Flomax] 0.4 mg PO DAILY@1730 #30 cap Potassium Chloride [K-Dur] 20 meq PO BID #7 tab Primary Care Physician: Pati Amaya DO [Primary Care Provider] - Please follow up with your Primary Care Physician in: 1-2 weeks Please Follow Up With: Braydon Costa MD - urologist When: as needed for trouble urinating Disposition: Home Minutes spent on discharge:: 35 Patient Condition:: Good Medical Necessity - Tobacco Use Smoking Status: Former smoker Tobacco Use: Non-smoker Meaningful Use Info Meaningful Use Diagnoses (Choose all that apply): None applicable Code Visit Inpatient E&M: 33150 Disch Hosp
[2017-12-25 13:11] VITALS: BP 150/86; PULSE 90; RESP 18; TEMP 37.2; O2SAT 97
== END 2017-12-25 15:45 | disposition home or self-care (01) | DRG 872 ==
LOC: ED 19:23 → ICU 22:05 → MS3 12-24 17:48
PROVIDERS: Admitting Provider Internal Medicine; Emergency Provider Emergency Medicine; Family Provider Internal Medicine; PCP Internal Medicine; Visit Provider Internal Medicine
DX: A41.9 Sepsis, unspecified organism (principal); N30.00 Acute cystitis without hematuria; N17.9 Acute kidney failure, unspecified; N10 Acute pyelonephritis; R17 Unspecified jaundice; R65.20 Severe sepsis without septic shock; B96.20 Unspecified Escherichia coli [E. coli] as the cause of diseases classified elsewhere; D69.6 Thrombocytopenia, unspecified; E80.4 Gilbert syndrome; E11.9 Type 2 diabetes mellitus without complications; N40.0 Benign prostatic hyperplasia without lower urinary tract symptoms; E66.01 Morbid (severe) obesity due to excess calories; E87.6 Hypokalemia; I10 Essential (primary) hypertension; D64.9 Anemia, unspecified; Z87.891 Personal history of nicotine dependence; K57.30 Diverticulosis of large intestine without perforation or abscess without bleeding; R16.2 Hepatomegaly with splenomegaly, not elsewhere classified; Z68.36 Body mass index [BMI] 36.0-36.9, adult
CPT/HCPCS: 36415; 51702; 71045; 74176; 80048; 80053; 80076; 81001; 82962; 83036; 83605; 83735; 85025; 85027; 85610; 85730; 87040; 87086; 87088; 87186; 87493; 93005; 99284; J7030; A4216; J0696

== ENCOUNTER → 2018-05-06 09:18 | Outpatient (CLI) | payer OTHER, SELFPAY ==
[2018-05-06 11:01] LABS: PSA,Total- Diagnostic 2.29 ng/mL (0.0-4.0)
== END ==
PROVIDERS: Family Provider Internal Medicine; PCP Internal Medicine; Visit Provider Nurse Practitioner Adult Health
DX: R97.20 Elevated prostate specific antigen [PSA] (principal)
CPT/HCPCS: 36415; 84153

== ENCOUNTER 2018-07-27 08:30 | Day surgery (SDC) | payer OTHER, SELFPAY ==
[2018-07-27 09:04] VITALS: BP 155/91; PULSE 73; RESP 16; TEMP 36.7; O2SAT 100; BMI 36.7
[2018-07-27] MEDS: Tetracaine 0.5% Ophthalmic Bottle 1 DRP (09:36)
[2018-07-27] MEDS: Sodium/Calcium/Mag/Potassium 15 ML Bottle (09:36)
--- NOTE | 2018-07-27 09:49 | PCM.IMDPSTOP ---
Immediate Post-Op Note Date of Procedure: 07/27/18 Primary Surgeon/Physician: Brianna Aleman MD dependency director: Mary Watters Pre-Operative Diagnosis: Pupillary abnormality with wound dehiscience after cataract surgery OD Post-Operative Diagnosis: same Surgery/Procedure Performed:: revision of operative wound right eye Description of Surgical Findings:: iris prolapse in main incision Estimated Blood Loss: none Specimen's removed: none Type of Anesthesia:: Topical
--- NOTE | 2018-07-27 09:53 | OP.PN_ITS ---
Immediate Post-Op Note Date of Procedure: 07/27/18 Primary Surgeon/Physician: Brianna Aleman MD teachers aide: Mary Watters Pre-Operative Diagnosis: Pupillary abnormality with wound dehiscience after cataract surgery OD Post-Operative Diagnosis: same Surgery/Procedure Performed:: revision of operative wound right eye Description of Surgical Findings:: iris prolapse in main incision Estimated Blood Loss: none Specimen's removed: none Type of Anesthesia:: Topical
--- NOTE | 2018-07-27 09:53 | PCM.DC.CATCL ---
Allergies/Adverse Reactions: Allergies No Known Allergies Allergy (Verified 07/26/18 13:27) Medications to take at Discharge RX: Amlodipine Besylate [Norvasc] 5 mg PO DAILY 03/13/17 RX: Liraglutide [Victoza] 18 units SQ DAILY 03/13/17 RX: Lisinopril [Zestril] 20 mg PO BID 03/13/17 RX: Metformin HCl [Metformin HCl ER] 750 mg PO BID 03/13/17 RX: Simvastatin [Zocor] 10 mg PO DAILY 03/13/17 RX: Doxycycline Monohydrate [Oracea] 20 mg PO DAILY 03/25/17 RX: Cholecalciferol (Vitamin D3) [Vitamin D3] 5,000 unit PO DAILY 12/23/17 RX: Cyanocobalamin (Vitamin B-12) [Vitamin B12] 5,000 mcg PO DAILY 12/23/17 Tumeric 500 mcg PO DAILY 12/23/17 Glucosamine/MSM/Chondroitin A [Glucosamine Chondroit MSM Tab] 1 each PO BID 07/26/18 Hydrochlorothiazide [Hctz] 12.5 mg PO DAILY 07/26/18 L.acidoph,Paracasei, B.lactis [Probiotic] 1 each PO DAILY 07/26/18 Multivitamin [Multiple Vitamins] 1 each PO DAILY 07/26/18 Cataract Instructions: -Take a pain reliever such as Tylenol, Aspirin or Ibuprofen if needed for eye aching or pain. If this is not enough relief for you pain, call your doctor (or the doctor director of litigation), even at night. -You are scheduled for a follow-up appointment at [facility] the day after surgery. You should have someone drive you. -Transient pain and irritation are due to the incision that was made at the time of surgery and do not indicate any trouble. Our office numbers are . If there is no answer, or if it is after our normal business hours, call your surgeon. My home phone number is: Dr. Brianna Aleman INSTRUCTIONS FOLLOWING TOPICAL ANESTHETIC CATARACT SURGERY Protect operated eye with glasses or metal shield at all times. Instill one drop of Polytrim (or other antibiotic drop), one drop of Prednisolone and one drop of Acular in the operated eye four times a day (breakfast, lunch, dinner, and bedtime) until the doctor tells you to quit or decrease them. Wait 3-5 minutes between each drop. Please begin these immediately upon arriving at home. if your surgery is in t he afternoon, try to use the drops at least three more times the day of surgery and again the following morning before your appointment. INSTRUCTIONS FOLLOWING RETROBULBAR CATARACT SURGERY Keep the eye patch and metal shield on until you see your surgeon the day after surgery - these will be removed in the office that day. Do not drive while the patch is on your eye. You will be instructed about the use of drops for the operated eye at that visit. Primary Care Physician: Pati Amaya DO [Primary Care Provider] -
--- NOTE | 2018-07-27 09:55 | PCM.OP.BLANK ---
Operative Report Date of Procedure: 07/27/18 Procedure: Wound Revision Right Eye Preoperative Diagnosis: Pupillary abnormality Right Eye with Wound Dehiscence Right Eye after cataract surgery Postoperative Diagnosis: same Anesthesia: Local EBL: none Complications: none Indications for Procedure: This is a 63 yo male with history of cataract surgery in right eye. POD #2 he was straining and caused his main incision to open with iris prolapse to the main incision. After discussion of r/b/a of wound revision patient agreed to proceed. Description of Procedure: The patient was brought to the operating room where a time out was perfomed on arrival. The eye was treated with tetracaine drops. The eye was prepped and draped in the usual sterile fashion for eye surgery. Subsequently, preservative free lidocaine was instilled into the anterior chamber to reposit the iris. The wound was hydrated using sterile BSS. A 10-0 nylon suture was used to secure the main incision. The wound was noted to be watertight with the use of a weckcell sponge. The patient was taken to the recovery room in stable condition with instructions to follow up in the clinic the following day.
[2018-07-27 10:12] VITALS: BP 141/79; BP 155/91; PULSE 68; RESP 18; TEMP 37.3; O2SAT 98
== END 2018-07-27 10:15 | disposition home or self-care (01) ==
LOC: SDC 08:31 → AC 08:32
PROVIDERS: Family Provider Internal Medicine; PCP Internal Medicine; Referring Provider Ophthalmology; Visit Provider Ophthalmology
PROC: (CPT 66250; principal; 2018-07-27 09:20)
DX: H21.561 Pupillary abnormality, right eye (principal); E11.9 Type 2 diabetes mellitus without complications; I10 Essential (primary) hypertension; Z98.41 Cataract extraction status, right eye; Z87.891 Personal history of nicotine dependence
CPT/HCPCS: 66250

== ENCOUNTER → 2019-11-10 11:57 | Outpatient (CLI) | payer OTHER, SELFPAY ==
--- NOTE | 2019-11-10 12:03 | RAD_ITS ---
STUDY: X-RAY - ABDOMEN/PELVIS REASON FOR EXAM: Male, 64 years old. Right flank pain, hx kidney stone TECHNIQUE: Single AP view of the abdomen / pelvis. COMPARISON: None. FINDINGS: There is elevation of the right hemidiaphragm. There is an abundance of fecal material throughout the colon. The visualized liver, spleen and kidneys are grossly normal in size and morphology. There are calcified phleboliths in the pelvis. There are degenerative changes of the visualized lumbar spine. RAD/Abdomen Single View IMPRESSION: Large amount of fecal material is seen in the colon. Electronically Signed: Moy Hartmann, at 12:38 EST , Service support ,
== END ==
PROVIDERS: PCP Internal Medicine; Referring Provider Internal Medicine; Visit Provider Internal Medicine
DX: R10.9 Unspecified abdominal pain (principal)
CPT/HCPCS: 74018

== ENCOUNTER → 2019-12-21 | Outpatient (CLI) | payer OTHER, SELFPAY ==
[2019-12-21 08:04] VITALS: BMI 36.7
[2019-12-21 10:35] LABS: Mucous, Urine 0 SEEN /hpf (<or=2+); Squamous Epithelial Cells - UA 0 SEEN /hpf (0-5)
[2019-12-21 10:47] LABS: Color, Urine Yellow (Yellow); Glucose, Dipstick Normal (Normal); Ketone-Dipstick 5 mg/dl (Negative); Leukocyte Esterase-Dipstick 100 /ul (Negative); Nitrite-Dipstick Positive (Negative); Occult Blood-Urine 10 /ul (Negative); Protein-Dipstick 100 mg/dl (Negative); Specific Gravity, Urine 1.015 (1.002-1.030); Urine Bilirubin Dipstick Negative (Negative); Urine Clarity Sl. Cloudy (Clear); Urine Urobilinogen Normal (Normal)
[2019-12-21 11:13] LABS: Bacteria 3+ /hpf (None Seen); Red Blood Cells-Urine 0-5 SEEN /hpf (0-5); White Blood Cells 10-25 SEEN /hpf (0-5)
== END | disposition home or self-care (01) ==
LOC: LABSPEC 10:25
PROVIDERS: PCP Internal Medicine; Referring Provider Physician Assistant; Visit Provider Physician Assistant
DX: M54.9 Dorsalgia, unspecified (principal); R30.0 Dysuria
CPT/HCPCS: 81001; 87086; 87088; 87186

== ENCOUNTER → 2020-12-28 10:36 | Outpatient (CLI) | payer OTHER, SELFPAY ==
[2019-12-21 08:04] VITALS: BMI 36.7
--- NOTE | 2020-12-28 10:41 | RAD_ITS ---
INDICATION: LUMBAR STRAIN EXAMINATION/TECHNIQUE: X-RAY - XR Spine Lumbar Min 4 Views COMPARISON: None. FINDINGS: VERTEBRAE: Preserved vertebral body height. No fracture. 1 cm retrolisthesis L3 on L4. Straightening of the normal lumbar lordosis. Moderate multilevel facet arthropathy. DISCS: Moderate multilevel disc space narrowing and osteophytosis. INCLUDED ABDOMEN: Included bowel gas pattern is non-obstructive. RAD/L/S Spine Min 4 Views IMPRESSION: Grade 1 retrolisthesis L3 on L4. Moderate multilevel lumbar spondylosis and facet arthropathy. Electronically Signed: Mauricio Smith MD at 17:22 EDT Tel , Service support ,
== END ==
PROVIDERS: PCP Internal Medicine
DX: S33.5XXA Sprain of ligaments of lumbar spine, initial encounter (principal)
CPT/HCPCS: 72110

== ENCOUNTER → 2021-08-22 13:10 | Outpatient (CLI) | payer OTHER, SELFPAY ==
--- NOTE | 2021-08-22 13:14 | RAD_ITS ---
STUDY: X-RAY - PELVIS AND RIGHT HIP REASON FOR EXAM: Male, 66 years old. Pain and stiffness TECHNIQUE: 3 views of the pelvis and hip. COMPARISON: None. FINDINGS: There is a non-specific bowel gas pattern. Normal visualized soft tissue structures. Normal bilateral iliac wings, sacroiliac joints and visualized sacrum. Normal bilateral superior and inferior pubic rami. Normal pubic symphysis. Normal bilateral ischial tuberosities. Normal visualized femoral head. Normal acetabulum. There is mild articular joint space narrowing of the hip. RAD/HIP, UNI W/ Pelvis 2-3 Views IMPRESSION: Age consistent degenerative changes, no acute findings Electronically Signed: Fish Rojo MD at 15:21 EST , Service support ,
== END ==
PROVIDERS: PCP Internal Medicine; Referring Provider Chiropractor; Visit Provider Chiropractor
DX: S73.101A Unspecified sprain of right hip, initial encounter (principal); X58.XXXA Exposure to other specified factors, initial encounter; Y93.9 Activity, unspecified; Y92.89 Other specified places as the place of occurrence of the external cause; Y99.8 Other external cause status
CPT/HCPCS: 73502

== ENCOUNTER 2022-12-03 16:26 | Emergency (ER) | payer OTHER, SELFPAY ==
[2022-12-03 16:27] VITALS: BP 189/87; PULSE 85; RESP 18; TEMP 36.2; O2SAT 98; BMI 36.7
--- NOTE | 2022-12-03 16:50 | CT_ITS ---
STUDY: CT Abdomen And Pelvis W/O Contrast Injection 12/03/2022 6:08 PM REASON FOR EXAM: Male, 67 years old. Abdominal pain right flank pain x 1 month. prior cholecystectomy Individualized dose optimization techniques were used for this CT. COMPARISON: 12.23.17. TECHNIQUE: CT Abdomen And Pelvis W/O Contrast Injection FINDINGS: There are atherosclerotic calcifications of visualized coronary arteries. The visualized portions of the heart are within normal limits. Normal liver. There is non-visualization of the gallbladder, which may be secondary to either contraction or a prior cholecystectomy. Normal spleen. Normal pancreas. Normal bilateral adrenal glands. There are hypodensities in the right kidney. These are consistent for cysts. No follow up required. There are hypodensities in the left kidney. These are consistent for cysts. No follow up required. Normal visualized stomach. Normal small intestine. There are multiple colonic diverticula consistent with diverticulosis. The appendix is visualized and appears normal. There are calcifications of the abdominal aorta. This is consistent for atherosclerotic disease. There is NO abdominal aortic aneurysm. Vascular workup can be obtained based on clinical correlation. Normal inferior vena cava. Subcentimeter mesenteric lymph nodes. Normal urinary bladder. Normal abdominal wall. There are diffuse degenerative changes of the visualized lumbar spine. Degenerative findings in the hips. CT/Abdomen/Pelvis without Cont IMPRESSION: (NOT LISTED IN ORDER OF SIGNIFICANCE) There are multiple colonic diverticula consistent with diverticulosis. There are no acute findings. Other findings as above. Electronically Signed: Vinod Greer MD at 18:11 EDT ,
--- NOTE | 2022-12-03 16:51 | EX.ED.DYSGE1 ---
HPI History of Present Illness Chief Complaint: Back Detail of Chief Complaint: Right flank pain right flank pain Informant: patient Onset/Context/Timing Onset: Month(s) (1 months) Current Severity: Mild Maximum Severity: Moderate Narrative Narrative: Patient presents secondary to right flank pain for the past month. He points to the lateral lower right ribs down to his hip area. He was just seen by his PCP and he states urine was checked with no evidence of blood. He is not sure about infection. He states his doctor sent him here for a scan. [facility] Medical History Diabetes Hadley syndrome Hx of sepsis Hyperlipidemia Hypertension Knee pain Shoulder pain Vitamin D deficiency Home Medications amlodipine 10 mg tablet 5 mg PO DAILY blood pressure 03/13/17 [History Last Taken 12/23/17 07:00 5 mg] lisinopril 20 mg tablet 20 mg PO BID blood pressure 03/13/17 [History Last Taken 12/23/17 07:00 20 mg] metformin 750 mg tablet,extended release 24 hr 750 mg PO BID diabetes 03/13/17 [History Last Taken 12/23/17 07:00 750 mg] simvastatin 10 mg tablet 10 mg PO DAILY cholesterol 03/13/17 [History Last Taken 12/23/17 07:00 10 mg] doxycycline monohydrate 40 mg capsule,immediate - delay release 20 mg PO DAILY facial infection 03/25/17 [History Last Taken 12/23/17 07:00 40 mg] cholecalciferol (vitamin D3) 125 mcg (5,000 unit) capsule 5,000 unit PO DAILY deficency 12/23/17 [History Last Taken 12/23/17 07:00 5,000 units] glucosamine HCl 500 mg-msm 83 mg-chondroitin 400 mg tablet 1 ea PO BID 07/26/18 [History Last Taken Unknown] hydrochlorothiazide 25 mg tablet 12.5 mg PO DAILY 07/26/18 [History Last Taken Unknown] semaglutide 1 mg/dose (2 mg/1.5 mL) subcutaneous pen injector mg subcut 12/21/19 [History Last Taken Unknown] cyclobenzaprine 10 mg tablet 10 mg PO BID PRN muscle spasm #12 TABLETS 12/03/22 [Rx Last Taken Unknown] hydrocodone-acetaminophen 5-325mg 5mg-325mg 1 tab PO Q4H PRN PRN Pain 3 days #10 TABLETS 12/03/22 [Rx Last Taken Unknown] Allergy/AdvReac Type Severity Reaction Status Date / Time No Known Allergies Allergy Verified 12/03/22 16:29 Family History Mother Obesity Hypertension Diabetes Arthritis Sister Diabetes Cancer Surgical History H/O removal of cyst H/O Spinal surgery History of arthroscopic knee surgery History of hernia repair Hx of cholecystectomy Social History Smoking Status: Former smoker alcohol intake: current alcohol intake frequency: a few times a week ROS ROS ED Constitutional Constitutional ED: Denies chills or fever(s) Eyes Eyes: Denies discharge from eye(s) ENT ENT ED: Denies discharge from eye(s), rhinorrhea or sore throat Cardiovascular Cardiovascular: Denies chest pain or palpitations Respiratory/Chest Respiratory/Chest: Denies cough or dyspnea Gastrointestinal Gastrointestinal: Reports abdominal pain; Denies diarrhea, nausea or vomiting Genitourinary Genitourinary ED: Denies difficulty urinating or dysuria Musculoskeletal Musculoskeletal: Reports back pain; Denies extremity pain Integumentary Denies Abrasions or rash Neurologic Neurologic: Denies headache(s) or weakness Psychiatric Psychiatric: Denies anxiety or depression Allergic/Immunologic Allergic/Immunologic ED: Denies lip swelling or urticaria EXAM Physical Exam Const Vital Signs: 12/03/22 16:27 Temperature 97.1 F L Temperature Source Temporal Pulse Rate 85 Respiratory Rate 18 Blood Pressure 189/87 H Blood Pressure Mean 121 Pulse Ox 98 Oxygen Delivery Method Room Air Positive well nourished and well developed General Appearance ED: well developed HEENT Reports normocephalic and head/scalp atraumatic Eyes PERRL and EOMs intact bilaterally Neck supple Chest Wall inspection of chest normal and palpation of chest normal Resp normal respiratory effort and clear to auscultation bilaterally Cardio regular rate and regular rhythm GI normal to inspection, nondistended, normoactive bowel sounds Palpation: soft Back/Spine no CVA tenderness Back/Spine Narrative: No midline thoracic or lumbar tenderness. Reproducible tenderness in the lateral abdominal wall just beneath the right lower ribs to the iliac crest. There is no overlying skin changes. Extremity normal to inspection Neuro oriented x3 and no sensory deficits noted Sensorium / Orientation: alert Motor Exam: strength 5/5 throughout Psych mental status grossly normal Skin no rashes or lesions noted MDM MDM MDM Narrative Medical decision making narrative: Labwork obtained to evaluate for leukocytosis, anemia, and electrolyte derangement. Urinalysis obtained to evaluate for infection/hematuria. CT flank obtained. Lab Data Attestation: I reviewed the patient's lab results. Labs: Laboratory Results - last 24 hr 12/03/22 12/03/22 12/03/22 17:10 17:10 17:15 WBC 6.1 RBC 4.47 L Hgb 13.3 Hct 37.3 L MCV 83.4 MCH 29.8 MCHC 35.7 RDW Std Deviation 38.7 RDW Coeff of [place] 12.9 Plt Count 130 L MPV 9.6 Immature Gran % (Auto) 0.200 Neut % (Auto) 66.8 Lymph % (Auto) 22.8 [place] % (Auto) 8.6 Eos % (Auto) 1.1 Baso % (Auto) 0.5 Absolute Neuts (auto) 4.1 Absolute Lymphs (auto) 1.40 Nucleated RBC % 0 Sodium 138 Potassium 3.6 Chloride 102 Carbon Dioxide 28.0 Anion Gap 8 BUN 36 H Creatinine 1.76 H Estim Creat Clear Calc 40.90 Est GFR (MDRD) Af Amer 50 L Est GFR (MDRD) Non-Af 41 L BUN/Creatinine Ratio 20.5 H Glucose 183 H Calcium 9.4 Total Bilirubin 2.30 H Direct Bilirubin 0.47 H AST 29 ALT 46 Alkaline Phosphatase 46 Total Protein 6.9 Albumin 3.9 Globulin 3.0 Urine Color Yellow Urine Clarity Clear Urine pH 5.0 Ur Specific [place] 1.025 Urine Protein 500 H Urine Glucose (UA) Normal Urine Ketones Negative Urine Occult Blood Negative Urine Nitrite Negative Urine Bilirubin Negative Urine Urobilinogen Normal Ur Leukocyte Esterase Negative Urine RBC 0-5 SEEN Urine WBC 0-5 SEEN Ur Squamous Epith Cells 0-5 SEEN Urine Bacteria 0 SEEN Urine Mucus 0 SEEN Radiography Diagnostic Testing: Clinical Impression(s) from Imaging Studies Abdomen/Pelvis CT 12/03/22 16:50 IMPRESSION: (NOT LISTED IN ORDER OF SIGNIFICANCE) There are multiple colonic diverticula consistent with diverticulosis. There are no acute findings. Other findings as above. Electronically Signed: Vinod Greer MD at 18:11 EDT , Treatment and Re-Evaluation :: CBC was normal white count and hemoglobin level. Chemistry studies significant for BUN of 36 and creatinine of 1.76. This is bumped from his prior value, however his last labs that I have are from 2018. Glucose is 183. Total bili is 2.3 and direct bili 0.74. This is consistent with his prior values and likely secondary to his Gilbert's disease. Urinalysis reveals no sign of infection. Test results are discussed with the patient. He will be given 1 L of IV fluids. I will write him a short course of [place] along with muscle relaxers. He understands that these can make him sleepy and loopy and will monitor his symptoms closely. Return instructions given. Discharge Plan Triage Chief Complaint: Back Other Complaint: Flank Pain ED Provider: Rose Garland Dx/Rx/DC Orders Clinical Impression: Flank pain Instructions: ED Flank Pain, Uncertain Cause Prescriptions: New hydrocodone-acetaminophen 5-325 mg tablet 1 tab PO Q4H PRN PRN (Reason: Pain) 3 Days Qty: 10 0RF cyclobenzaprine 10 mg tablet 10 mg PO BID PRN (Reason: muscle spasm) Qty: 12 0RF No Action semaglutide 1 mg/dose (2 mg/1.5 mL) pen injector SC lisinopril 20 MG tablet 20 mg PO BID simvastatin 10 MG tablet 10 mg PO DAILY amlodipine 10 MG tablet 5 mg PO DAILY metformin 750 MG tablet extended release 24 hr 750 mg PO BID doxycycline monohydrate 40 MG capsule,IR - delay rel,biphase 20 mg PO DAILY cholecalciferol (vitamin D3) 5,000 UNIT capsule 5,000 unit PO DAILY hydrochlorothiazide 25 MG tablet 12.5 mg PO DAILY glucosamine [id number] 1 EACH tablet 1 ea PO BID Primary Care Provider: Pati Amaya Referrals: Pati Amaya, DO [Primary Care Provider] - 1 Week if not improving Disposition Disposition: Home, Self Care
[2022-12-03 17:21] LABS: Bacteria 0 SEEN /hpf (None Seen); Mucous, Urine 0 SEEN /hpf (<or=2+)
[2022-12-03 17:22] LABS: Color, Urine Yellow (Yellow); Glucose, Dipstick Normal (Normal); Ketone-Dipstick Negative (Negative); Leukocyte Esterase-Dipstick Negative /ul (Negative); Nitrite-Dipstick Negative (Negative); Occult Blood-Urine Negative /ul (Negative); Protein-Dipstick 500 mg/dl (Negative); Specific Gravity, Urine 1.025 (1.002-1.030); Urine Bilirubin Dipstick Negative (Negative); Urine Clarity Clear (Clear); Urine Urobilinogen Normal (Normal)
[2022-12-03 17:29] LABS: Absolute Neutrophil Count 4.1 X10^3/uL (2.0-7.7); Basophil# 0.03 X10^3/uL; Basophil% 0.5 % (0-1); Eosinophil# 0.07 X10^3/uL; Eosinophils% 1.1 % (0-5); Hematocrit 37.3 % (40-54); Hemoglobin 13.3 g/dL (13.0-16.5); Lymphocyte % 22.8 % (19-41); Mean Corp Hgb Conc 35.7 g/dL (32-36); Mean Corpuscular Hgb 29.8 pg (27.0-32.0); Mean Corpuscular Volume 83.4 fL (80-94); Mean Platelet Vol. 9.6 fl (6.2-12.0); Monocyte# 0.53 X10^3/uL; Monocyte% 8.6 % (0-10); NRBC Flagged by Analyzer 0 % (0-5); Neutrophil # 4.09 X10^3/uL (2.7-7.7); Neutrophil % 66.8 % (47-70); Platelet Count 130 K/mm3 (150-450); RBC Distribution Width CV 12.9 % (11.6-14.6); RBC Distribution Width SD 38.7 fl (35.1-43.9); Red Blood Count 4.47 M/mm3 (4.6-6.2); White Blood Count 6.1 K/mm3 (4.4-11.0)
[2022-12-03 17:40] LABS: Red Blood Cells-Urine 0-5 SEEN /hpf (0-5); Squamous Epithelial Cells - UA 0-5 SEEN /hpf (0-5); White Blood Cells 0-5 SEEN /hpf (0-5)
[2022-12-03 17:48] LABS: AST(SGOT) 29 U/L (15-37); Alanine Aminotransfer ALT/SGPT 46 U/L (16-61); Albumin, Serum 3.9 g/dL (3.2-5.0); Alkaline Phosphatase 46 U/L (45-117); Anion Gap 8 (5-15); BUN 36 mg/dL (7-18); BUN/Creat Ratio 20.5 RATIO (10-20); Bilirubin, Direct 0.47 mg/dL (0.00-0.30); Calcium,Total 9.4 mg/dL (8.5-10.1); Chloride 102 mmol/L (98-107); Creatinine, Serum 1.76 mg/dL (0.70-1.30); EST Glomerular Filtration Rate 41 mL/min (>60); Est Glom Filt Rate - Afr Amer 50 mL/min (>60); Glucose 183 mg/dL (74-106); Potassium 3.6 mmol/L (3.5-5.1); Protein, Total 6.9 g/dL (6.4-8.2); Sodium Level 138 mmol/L (136-145)
[2022-12-03] MEDS: 0.9% Normal Saline 1,000 ML 999 ML IV (18:41)
[2022-12-03 19:59] VITALS: BP 143/80; PULSE 69; RESP 15; O2SAT 98
== END 2022-12-03 20:02 | disposition home or self-care (01) ==
PROVIDERS: Emergency Provider Emergency Medicine; PCP Internal Medicine; Visit Provider Emergency Medicine
DX: R10.9 Unspecified abdominal pain (principal); E11.9 Type 2 diabetes mellitus without complications; E78.5 Hyperlipidemia, unspecified; R07.81 Pleurodynia; I10 Essential (primary) hypertension; Z87.891 Personal history of nicotine dependence
CPT/HCPCS: 74176; 80048; 80076; 81001; 85025; 90471; 96360; 99285; J7030; A4216

== ENCOUNTER → 2024-02-05 | Outpatient (CLI) | payer MEDICARE, OTHER, SELFPAY ==
[2024-02-05 10:39] LABS: Absolute Lymphocyte Count 1.43 X10^3/uL (0.83-4.51); Absolute Neutrophil Count 3.3 X10^3/uL (2.0-7.7); Basophil# 0.03 X10^3/uL; Basophil% 0.5 % (0-1); Eosinophil# 0.14 X10^3/uL; Eosinophils% 2.5 % (0-5); Hematocrit 37.2 % (40-54); Hemoglobin 12.1 g/dL (13.0-16.5); Lymphocyte # 1.43 X10^3/ul (0.83-4.51); Mean Corp Hgb Conc 32.5 g/dL (32-36); Mean Corpuscular Hgb 28.5 pg (27.0-32.0); Mean Corpuscular Volume 87.7 fL (80-94); Mean Platelet Vol. 11.9 fl (6.2-12.0); Monocyte# 0.55 X10^3/uL; NRBC Flagged by Analyzer 0 % (0-5); Neutrophil # 3.31 X10^3/uL (2.7-7.7); Neutrophil % 60.3 % (47-70); Platelet Count 111 K/mm3 (150-450); RBC Distribution Width CV 13.4 % (11.6-14.6); RBC Distribution Width SD 42.6 fl (35.1-43.9); Red Blood Count 4.24 M/mm3 (4.6-6.2); White Blood Count 5.5 K/mm3 (4.4-11.0)
== END | disposition home or self-care (01) ==
LOC: LABSPEC 10:18
PROVIDERS: PCP Internal Medicine; Referring Provider Internal Medicine; Visit Provider Internal Medicine
DX: D69.6 Thrombocytopenia, unspecified (principal)
CPT/HCPCS: 85025

== ENCOUNTER 2024-03-05 09:44 | Emergency (ER) | payer MEDICARE, OTHER, SELFPAY ==
[2024-03-05 09:45] VITALS: BP 124/76; PULSE 93; RESP 16; TEMP 36.9; O2SAT 95; BMI 33.0
[2024-03-05 09:47] VITALS: BP 124/76
--- NOTE | 2024-03-05 10:24 | CT_ITS ---
EXAM: CT ABDOMEN AND PELVIS WITH INTRAVENOUS CONTRAST CLINICAL INDICATION: Right flank pain and fever. TECHNIQUE: Helically acquired images were obtained of the abdomen and pelvis with intravenous contrast. This CT exam was performed using one or more of the following dose reduction techniques: automated exposure control, adjustment of the mA and/or kV according to patient size, and/or use of iterative reconstruction technique. CONTRAST: IV 75mL [id number] RADIATION DOSE: CTDIvol = 17.84 mGy, DLP = 2176.40 mGy-cm COMPARISON: CT abdomen and pelvis without contrast 12/03/2022. FINDINGS: LOWER THORAX: Unremarkable. Lung bases are clear. No cardiomegaly. No significant pericardial effusion. ABDOMEN: LIVER: Unremarkable. Homogeneous. No focal mass. GALLBLADDER AND BILE DUCTS: Unremarkable. No visible gallbladder presumably from laparoscopic cholecystectomy. No intrahepatic or extrahepatic biliary ductal dilatation. PANCREAS: Unremarkable. No focal cystic or solid mass. SPLEEN: Unremarkable. Normal size without focal cystic or solid mass. ADRENALS: Unremarkable. No nodules. KIDNEYS AND URETERS: 2 small nonenhancing cysts in the right lower renal pole with CT number is of -1.29 and 5.77 Hounsfield units. These are simple cysts. Normal renal size and position. No hydronephrosis. STOMACH AND BOWEL: Unremarkable. No stomach or bowel distention. No focal inflammatory change. PELVIS: APPENDIX: Normal appendix. BLADDER: No suspicious mass or stones. Protrusion of the enlarged central lobe of the prostate gland into the posterior urinary bladder wall. REPRODUCTIVE: Enlarged central lobe of the prostate gland protruding into the posterior urinary bladder wall is at least BPH. ABDOMEN and PELVIS: INTRAPERITONEAL SPACE: Unremarkable. No ascites or other fluid collection. No free air. BONES/JOINTS: Straightening of the lumbar spine curvature. Moderate L3-L4 degenerative disc space height narrowing. No lytic or blastic lesions. SOFT TISSUES: Unremarkable. No discrete abdominal or pelvic wall hernia. VASCULATURE: Unremarkable. Abdominal aorta is non-dilated. LYMPH NODES: Unremarkable. No enlarged lymph nodes. CT/Abdomen/Pelvis W IV Cont ONLY IMPRESSION: 1. No CT evidence of stones in the kidneys, ureters and urinary bladder. 2. 2 small nonenhancing cysts in the right kidney are simple cysts. ACR White Paper guidelines (Karlos, et al. JACR 2018; 15(2):264-273) suggest no follow-up is necessary. 3. Enlarged central lobe of prostate gland protruding into the posterior urinary bladder wall is at least BPH. This is unchanged. Please correlate with PSA levels. 4. Normal CT of the appendix. 5. No suspicious acute abnormality in the abdomen and pelvis. Electronically Signed: William Suresh MD at 12:13 EDT ,
--- NOTE | 2024-03-05 10:52 | EDS_ITS ---
HPI History of Present Illness Chief Complaint: Flank Pain Informant: patient Narrative Narrative: 68-year-old male presenting to the emergency room with a chief complaint of fever. Patient states that on Thursday afternoon he began to feel not right. By Thursday evening his states he had a temperature of 99.5. Today he woke and it was 101.5. Patient notes he has a history of UTIs. He states normally he can feel if it is in the bladder but he is having some discomfort in the right flank not the bladder region. He denies any cough runny nose sore throat earache nausea vomiting or diarrhea. He denies any rashes. He does note a slight headache but no light sensitivity or phonophobia. He has a history of BPH as well as diabetes. He notes he has been hospitalized twice with sepsis due to UTI. He is supposed to have a total knee replacement on Thursday with Dr. Sanchez. This is already been delayed once due to thrombocytopenia and anemia. He was found to have some gastritis on endoscopy with Dr. Guthrie and is on pantoprazole. He followed up with hematology who cleared him for surgery. [facility] Medical History Urinary retention Apnea Low platelet count Hx of sepsis Knee pain Shoulder pain [place] syndrome Vitamin D deficiency Hypertension Hyperlipidemia Diabetes Home Medications ?Medication ?Instructions ?Recorded ?Last Taken ?Type simvastatin 10 mg tablet 10 mg PO DAILY cholesterol 03/13/17 12/23/17 07:00 History 10 mg amlodipine 10 mg tablet 10 mg PO DAILY blood pressure 02/09/24 Unknown History celecoxib 200 mg capsule 200 mg PO DAILY 02/09/24 Unknown History dapagliflozin propanediol 5 mg 5 mg PO DAILY 02/09/24 Unknown History tablet (Farxiga) ferrous sulfate 325 mg (65 mg 325 mg PO DAILY 02/09/24 Unknown History iron) tablet,delayed release pantoprazole 20 mg tablet,delayed 20 mg PO DAILY 02/09/24 Unknown History release semaglutide 1 mg/dose (4 mg/3 mL) 1 mg subcut QWEEK 02/09/24 Unknown History subcutaneous pen injector (Ozempic) tamsulosin 0.4 mg capsule (Flomax) 0.4 mg PO DAILY 02/09/24 Unknown History triamcinolone acetonide 55 mcg 2 spray intranasal DAILY 02/09/24 Unknown History nasal spray aerosol (Nasacort Allergy) atenolol 50 mg tablet 50 mg PO DAILY 02/23/24 Unknown History cranberry extract 200 mg capsule 200 mg PO DAILY 02/23/24 Unknown History doxycycline monohydrate 40 mg 20 mg PO DAILY facial infection 02/23/24 Unknown History capsule,immediate - delay release hydrochlorothiazide 25 mg tablet 25 mg PO DAILY 02/23/24 Unknown History mecobalamin (vitamin B12) 1,000 5,000 mcg PO DAILY 02/23/24 Unknown History mcg chewable tablet multivitamin 1 tab PO DAILY 02/23/24 Unknown History cefpodoxime 200 mg tablet 200 mg PO BID 10 days #20 tabs 03/05/24 Unknown Rx Allergy/AdvReac Type Severity Reaction Status Date / Time No Known Allergies Allergy Verified 03/05/24 09:44 Family History Mother Obesity Hypertension Diabetes Arthritis Sister Diabetes Cancer Surgical History H/O removal of cyst H/O Spinal surgery History of arthroscopic knee surgery History of hernia repair Hx of cholecystectomy Social History household members: spouse Smoking Status: Former smoker quit date: 09/07/77 alcohol intake: current alcohol intake frequency: holidays/special occasions only substance use type: does not use ROS ROS ED Constitutional Constitutional ED: Reports chills and fever(s); Denies weight loss Eyes Eyes: Denies change in vision or diplopia ENT ENT ED: Denies ear pain, rhinorrhea or sore throat Cardiovascular Cardiovascular: Denies chest pain, orthopnea, palpitations or racing heartbeat Respiratory/Chest Respiratory/Chest: Denies cough, dyspnea or orthopnea Gastrointestinal Gastrointestinal: Denies abdominal pain, diarrhea, nausea or vomiting Genitourinary Genitourinary ED: Denies dysuria, hematuria or urinary frequency Musculoskeletal Musculoskeletal: Reports other Details: Right flank pain ; Denies arthralgias or myalgias Integumentary Denies abscess or rash Neurologic Neurologic: Denies headache(s) or weakness Psychiatric Psychiatric: Denies anxiety, depression, suicidal ideation or suicidal thoughts Endocrine Endocrinology: Denies polydipsia, polyphagia or polyuria Allergic/Immunologic Allergic/Immunologic ED: Denies mouth swelling, tongue swelling or urticaria EXAM Physical Exam Const Vital Signs: 03/05/24 09:45 03/05/24 09:47 03/05/24 11:00 Temperature 98.4 F 98.6 F Temperature Source Temporal Oral Pulse Rate 93 79 Respiratory Rate 16 16 Blood Pressure 124/76 H 124/76 H 144/83 H Blood Pressure Mean 92 92 103 Pulse Ox 95 98 Oxygen Delivery Method Room Air Room Air 03/05/24 11:44 03/05/24 12:00 Temperature 98.6 F 98.8 F Temperature Source Oral Oral Pulse Rate 72 79 Respiratory Rate 15 16 Blood Pressure 144/83 H 188/88 H Blood Pressure Mean 103 121 Pulse Ox 100 100 Oxygen Delivery Method Room Air Room Air Positive well nourished and well developed General Appearance ED: well developed HEENT Reports normocephalic, head/scalp atraumatic and moist mucous membranes Eyes PERRL and EOMs intact bilaterally Neck no lymphadenopathy, supple and no JVD Resp normal respiratory effort and clear to auscultation bilaterally Cardio regular rate, regular rhythm and no murmurs GI normal to inspection, nondistended, normoactive bowel sounds and non-tender Palpation: soft Back/Spine no CVA tenderness and normal ROM Extremity normal to inspection General Extremety ED: Negative for edema General Extremity: Negative for edema Neuro oriented x3 and CN's II-XII intact bilaterally Sensorium / Orientation: alert Motor Exam: strength 5/5 throughout Psych mental status grossly normal Mood & Affect: Negative for depressed or tearful Skin no rashes or lesions noted and no wounds MDM MDM MDM Narrative Medical decision making narrative: Differential diagnosis includes UTI pyelonephritis sepsis kidney stone shingles viral syndrome pneumonia electrolyte disturbance thrombocytopenia anemia White count 3.6 with hemoglobin 12.3 and platelet count of 67. His platelet count is not abnormal for the patient who has chronic thrombocytopenia but is lower than it has been for the past couple months. Creatinine is 1.91 with a BUN of 38 which is stable for the patient. Potassium noted to be 3 urinalysis with 3+ bacteria 25-50 white cells positive leukocyte esterase negative nit rates. Blood and urine cultures were obtained. Patient received IV fluids as well as Rocephin. Patient clinically appears well. He feels like he could be treated at home and not like when he had sepsis requiring hospitalization in the past. He cannot recall what antibiotics he was on prior and he attempted to look them up on his phone but was unable to do so. Unguinal place him on cefpodoxime and we can await cultures. I also spoke with Dr. Domingo on-call for [facility] as he is scheduled to have a knee replacement on Thursday. Patient will call the office on Thursday to see if the procedure will continue History & Record Review Discussion w/independent historian: Patient Additional record(s) reviewed:: Prior labs Lab Data Attestation: I reviewed the patient's lab results. Labs: Laboratory Results - last 24 hr 03/05/24 03/05/24 10:35 10:45 WBC 3.6 L RBC 4.19 L Hgb 12.3 L Hct 35.4 L MCV 84.5 MCH 29.4 MCHC 34.7 RDW Std Deviation 41.1 RDW Coeff of Juan [place] 13.3 Plt Count 67 L MPV 9.7 Immature Gran % (Auto) 0.300 Neut % (Auto) 85.6 H Lymph % (Auto) 8.0 L [place] % (Auto) 5.8 Eos % (Auto) 0.0 Baso % (Auto) 0.3 Absolute Neuts (auto) 3.1 Absolute Lymphs (auto) 0.29 L Nucleated RBC % 0 Platelet Estimate MOD DEC PT 14.0 INR 1.1 APTT 28.6 Sodium 138 Potassium 3.0 L Chloride 102 Carbon Dioxide 27.0 Anion Gap 9 BUN 38 H Creatinine 1.91 H Estim Creat Clear Calc 43.54 Est GFR (MDRD) Af Amer 45 L Est GFR (MDRD) Non-Af 37 L BUN/Creatinine Ratio 19.9 Glucose 191 H Lactic Acid 1.0 Calcium 9.9 Total Bilirubin 2.70 H Direct Bilirubin 0.47 H AST 27 ALT 31 Alkaline Phosphatase 43 L Total Protein 7.1 Albumin 3.6 Globulin 3.5 Urine Color Yellow Urine Clarity Clear Urine pH 6.0 Ur Specific [place] 1.015 Urine Protein 100 H Urine Glucose (UA) 1000 H Urine Ketones 5 H Urine Occult Blood 50 H Urine Nitrite Negative Urine Bilirubin Negative Urine Urobilinogen Normal Ur Leukocyte Esterase 100 H Urine RBC 0 SEEN Urine WBC 25-50 SEEN Ur Squamous Epith Cells 0-5 SEEN Urine Bacteria 3+ Urine Mucus 0 SEEN Radiography Diagnostic Testing: Clinical Impression(s) from Imaging Studies Abdomen/Pelvis CT 03/05/24 10:24 IMPRESSION: 1. No CT evidence of stones in the kidneys, ureters and urinary bladder. 2. 2 small nonenhancing cysts in the right kidney are simple cysts. ACR White Paper guidelines (Karlos, et al. JACR 2018; 15(2):264-273) suggest no follow-up is necessary. 3. Enlarged central lobe of prostate gland protruding into the posterior urinary bladder wall is at least BPH. This is unchanged. Please correlate with PSA levels. 4. Normal CT of the appendix. 5. No suspicious acute abnormality in the abdomen and pelvis. Electronically Signed: William Suresh MD at 12:13 EDT , Chest X-Ray 03/05/24 11:33 IMPRESSION: No acute cardiopulmonary pathology and no significant interval change when compared to 12/23/2017. Electronically Signed: William Suresh MD at 12:27 EDT , Discharge Plan Triage Chief Complaint: Flank Pain ED Provider: Hang Hearn Dx/Rx/DC Orders Clinical Impression: Thrombocytopenia, Acute flank pain, Acute pyelonephritis, Acute hypokalemia Instructions: ED Pyelonephritis, Male (Adult) Prescriptions: New cefpodoxime 200 mg tablet 200 mg PO BID 10 Days Qty: 20 0RF Rx Instructions: must administer with a meal/food No Action atenolol 50 mg tablet 50 mg PO DAILY hydrochlorothiazide 25 mg tablet 25 mg PO DAILY cranberry extract 200 mg capsule 200 mg PO DAILY Rx Instructions: administer with a meal multivitamin Tablet 1 tab PO DAILY Ozempic 1 mg/dose (4 mg/3 mL) pen injector 1 mg subcut QWEEK celecoxib 200 mg capsule 200 mg PO DAILY dapagliflozin propanediol [Farxiga] 5 mg tablet 5 mg PO DAILY tamsulosin [Flomax] 0.4 mg capsule 0.4 mg PO DAILY triamcinolone acetonide [Nasacort Allergy] 55 mcg aerosol,spray 2 spray intranasal DAILY Rx Instructions: administer into each nostril ferrous sulfate 325 mg (65 mg iron) tablet,delayed release (DR/EC) 325 mg PO DAILY pantoprazole 20 mg tablet,delayed release (DR/EC) 20 mg PO DAILY mecobalamin (vitamin B12) 1,000 mcg tablet,chewable 5,000 mcg PO DAILY simvastatin 10 MG tablet 10 mg PO DAILY amlodipine 10 mg tablet 10 mg PO DAILY doxycycline monohydrate 40 mg capsule,IR - delay rel,biphase 20 mg PO DAILY Primary Care Provider: Pati Amaya Referrals: Pati Amaya, [Primary Care Provider] - 3-5 Days if not improving Eduar Sanchez MD [Med Staff - Active Staff] - (Please call the office on Thursday to ensure that the office and Dr. Sanchez in of the infection to see whether or not surgery will proceed) Activity Restrictions/Additional Instructions: Please continue to take Tylenol as needed for fever. As we discussed both blood and urine cultures were obtained today. If you are not improving or worsening you may return here to the emergency department. Print Language: Uzbek Disposition Disposition: Home, Self Care
[2024-03-05 11:00] VITALS: BP 144/83; PULSE 79; RESP 16; TEMP 37; O2SAT 98
[2024-03-05 11:02] LABS: Color, Urine Yellow (Yellow); Glucose, Dipstick 1000 mg/dl (Normal); Ketone-Dipstick 5 mg/dl (Negative); Leukocyte Esterase-Dipstick 100 /ul (Negative); Mucous, Urine 0 SEEN /hpf (<or=2+); Nitrite-Dipstick Negative (Negative); Occult Blood-Urine 50 /ul (Negative); Protein-Dipstick 100 mg/dl (Negative); Red Blood Cells-Urine 0 SEEN /hpf (0-5); Specific Gravity, Urine 1.015 (1.002-1.030); Urine Bilirubin Dipstick Negative (Negative); Urine Clarity Clear (Clear); Urine Urobilinogen Normal (Normal)
[2024-03-05 11:03] LABS: Absolute Lymphocyte Count 0.29 X10^3/uL (0.83-4.51); Absolute Neutrophil Count 3.1 X10^3/uL (2.0-7.7); Basophil# 0.01 X10^3/uL; Basophil% 0.3 % (0-1); Hematocrit 35.4 % (40-54); Hemoglobin 12.3 g/dL (13.0-16.5); Lymphocyte # 0.29 X10^3/ul (0.83-4.51); Mean Corp Hgb Conc 34.7 g/dL (32-36); Mean Corpuscular Hgb 29.4 pg (27.0-32.0); Mean Corpuscular Volume 84.5 fL (80-94); Mean Platelet Vol. 9.7 fl (6.2-12.0); Monocyte# 0.21 X10^3/uL; Monocyte% 5.8 % (0-10); NRBC Flagged by Analyzer 0 % (0-5); Neutrophil # 3.09 X10^3/uL (2.7-7.7); Neutrophil % 85.6 % (47-70); POSITIVE COUNT YES; POSITIVE DIFFERENTIAL YES; Platelet Count 67 K/mm3 (150-450); RBC Distribution Width CV 13.3 % (11.6-14.6); RBC Distribution Width SD 41.1 fl (35.1-43.9); Red Blood Count 4.19 M/mm3 (4.6-6.2); White Blood Count 3.6 K/mm3 (4.4-11.0)
[2024-03-05 11:05] LABS: Differential Indicated SCAN CRITERIA MET
[2024-03-05 11:09] LABS: Bacteria 3+ /hpf (None Seen); Squamous Epithelial Cells - UA 0-5 SEEN /hpf (0-5); White Blood Cells 25-50 SEEN /hpf (0-5)
[2024-03-05 11:10] LABS: International Normalized Ratio 1.1
[2024-03-05 11:11] LABS: Partial Thromboplast Time 28.6 Seconds (24.1-36.2)
[2024-03-05 11:20] LABS: AST(SGOT) 27 U/L (15-37); Alanine Aminotransfer ALT/SGPT 31 U/L (16-61); Albumin, Serum 3.6 g/dL (3.2-5.0); Alkaline Phosphatase 43 U/L (45-117); Anion Gap 9 (5-15); BUN 38 mg/dL (7-18); BUN/Creat Ratio 19.9 RATIO (10-20); Bilirubin, Direct 0.47 mg/dL (0.00-0.30); Calcium,Total 9.9 mg/dL (8.5-10.1); Chloride 102 mmol/L (98-107); Creatinine, Serum 1.91 mg/dL (0.70-1.30); EST Glomerular Filtration Rate 37 mL/min (>60); Est Glom Filt Rate - Afr Amer 45 mL/min (>60); Estimated Creatinine Clearance 43.54 ml/min; Globulin 3.5 g/dL (2.2-4.2); Glucose 191 mg/dL (74-106); Protein, Total 7.1 g/dL (6.4-8.2); Sodium Level 138 mmol/L (136-145)
[2024-03-05 11:28] LABS: Platelet Estimate MOD DEC (ADEQ)
--- NOTE | 2024-03-05 11:33 | RAD_ITS ---
EXAM: XR CHEST, 1 VIEW CLINICAL INDICATION: Fever. TECHNIQUE: Frontal view of the chest. COMPARISON: 12/23/2017. FINDINGS: LUNGS AND PLEURAL SPACES: Unremarkable. No consolidation or edema. No pneumothorax. No effusion. HEART: Unremarkable. Cardiac silhouette not enlarged. MEDIASTINUM: Central airways and mediastinal contour are unremarkable. BONES/JOINTS: Bone spur in the inferomedial aspect of both glenoid rims. No acute fracture. SOFT TISSUES: Unremarkable. RAD/Chest 1 View (Portable) IMPRESSION: No acute cardiopulmonary pathology and no significant interval change when compared to 12/23/2017. Electronically Signed: William Suresh MD at 12:27 EDT ,
[2024-03-05] MEDS: Ceftriaxone 1 GM/50 ML BAG IV (11:41)
[2024-03-05] MEDS: 0.9% Normal Saline (1000mL) 1,000 ML 999 ML IV (11:41)
[2024-03-05 11:44] VITALS: BP 144/83; PULSE 72; RESP 15; TEMP 37; O2SAT 100
[2024-03-05 12:00] VITALS: BP 188/88; PULSE 79; RESP 16; TEMP 37.1; O2SAT 100
[2024-03-05] MEDS: Acetaminophen 500 MG Tablet 1000 MG PO (12:01)
[2024-03-05 13:20] VITALS: BP 188/88; PULSE 79; RESP 16; TEMP 37.1; O2SAT 100
== END 2024-03-05 13:21 | disposition home or self-care (01) ==
PROVIDERS: Emergency Provider Emergency Medicine; PCP Internal Medicine; Visit Provider Emergency Medicine
DX: R10.9 Unspecified abdominal pain (principal); E11.9 Type 2 diabetes mellitus without complications; N10 Acute pyelonephritis; D69.6 Thrombocytopenia, unspecified; I10 Essential (primary) hypertension; Z87.891 Personal history of nicotine dependence; E78.5 Hyperlipidemia, unspecified; Z79.899 Other long term (current) drug therapy; Z79.85 Long-term (current) use of injectable non-insulin antidiabetic drugs; N40.0 Benign prostatic hyperplasia without lower urinary tract symptoms; Z90.49 Acquired absence of other specified parts of digestive tract; R50.9 Fever, unspecified
CPT/HCPCS: 71045; 74177; 80048; 80076; 81001; 83605; 85025; 85610; 85730; 87040; 87077; 87086; 87088; 87186; 87631; 96365; 99285; J7030; Q9967; A4216

== ENCOUNTER → 2024-03-05 | Outpatient (CLI) | payer MEDICARE, OTHER, SELFPAY ==
--- NOTE | 2024-03-05 08:47 | US_ITS ---
STUDY: ABDOMINAL ULTRASOUND - ELASTOGRAPHY REASON FOR VISIT: Male, 68 years old. Thrombocytopenia. TECHNIQUE: Liver stiffness measurements were obtained on a [employer] RS 85 ultrasound machine using a CA 1-7 probe following the SRU guidelines. 3 measurements were obtained using a 2-D-SWE method. TheIQR/M was 12% suggesting a quality data set. TECHNICAL QUALITY: Adequate. COMPARISON: FINDINGS: Liver: There is no demonstrated mass lesion. Median liver stiffness measured 11.17 kPa. Abdomen: There is no demonstrated mass lesion. US/ABD Limited w/ Elastography IMPRESSION: Liver stiffness measures 11.17 kPa compatible with F2-F3 Metavir score. Electronically Signed: Rafita Latham MD at 12:26 EDT ,
== END | disposition home or self-care (01) ==
LOC: US 08:36
PROVIDERS: PCP Internal Medicine; Referring Provider Internal Medicine Medical Oncology; Visit Provider Internal Medicine Medical Oncology
DX: D69.6 Thrombocytopenia, unspecified (principal)
CPT/HCPCS: 76705; 76981

== ENCOUNTER 2024-03-18 21:32 | Inpatient (IN) | payer MEDICARE, OTHER, SELFPAY ==
[2024-03-18 21:33] VITALS: BP 153/76; PULSE 111; RESP 18; TEMP 37.4; O2SAT 97
[2024-03-18 21:37] VITALS: BP 144/67; PULSE 80; RESP 16; TEMP 36.6; O2SAT 98
--- NOTE | 2024-03-18 22:14 | EDS_ITS ---
HPI History of Present Illness Chief Complaint: Complaint Narrative Narrative: 68-year-old male presenting with acute urinary retention. Patient had recent left knee surgery and is unsure if they have Boucher catheter in place when he had surgery. He states that he has had dysuria and urinary. He is now complaining it is difficult to void anything she needs a Boucher catheter. He had urinary tension in the past. Patient's been taking Tylenol rather frequently since his surgery. He is also been using oxycodone to help with pain. He had a temperature of 101.9 at. Patient with history of UTIs and pyelonephritis. He states that at 1 point in [place] he was septic. He does not feel that sick today. His left knee is not bothering him. [facility] Medical History Urinary retention Apnea Low platelet count Hx of sepsis Knee pain Shoulder pain [place] syndrome Vitamin D deficiency Hypertension Hyperlipidemia Diabetes Home Medications ?Medication ?Instructions ?Recorded ?Last Taken ?Type simvastatin 10 mg tablet 10 mg PO DAILY cholesterol 03/13/17 12/23/17 07:00 History 10 mg amlodipine 10 mg tablet 10 mg PO DAILY blood pressure 02/09/24 Unknown History celecoxib 200 mg capsule 200 mg PO DAILY 02/09/24 Unknown History dapagliflozin propanediol 5 mg 5 mg PO DAILY 02/09/24 Unknown History tablet (Farxiga) ferrous sulfate 325 mg (65 mg 325 mg PO DAILY 02/09/24 Unknown History iron) tablet,delayed release pantoprazole 20 mg tablet,delayed 20 mg PO DAILY 02/09/24 Unknown History release semaglutide 1 mg/dose (4 mg/3 mL) 1 mg subcut QWEEK 02/09/24 Unknown History subcutaneous pen injector (Ozempic) tamsulosin 0.4 mg capsule (Flomax) 0.4 mg PO DAILY 02/09/24 Unknown History triamcinolone acetonide 55 mcg 2 spray intranasal DAILY 02/09/24 Unknown History nasal spray aerosol (Nasacort Allergy) atenolol 50 mg tablet 50 mg PO DAILY 02/23/24 Unknown History cranberry extract 200 mg capsule 200 mg PO DAILY 02/23/24 Unknown History doxycycline monohydrate 40 mg 20 mg PO DAILY facial infection 02/23/24 Unknown History capsule,immediate - delay release hydrochlorothiazide 25 mg tablet 25 mg PO DAILY 02/23/24 Unknown History mecobalamin (vitamin B12) 1,000 5,000 mcg PO DAILY 02/23/24 Unknown History mcg chewable tablet multivitamin 1 tab PO DAILY 02/23/24 Unknown History cefpodoxime 200 mg tablet 200 mg PO BID 10 days #20 tabs 03/05/24 Unknown Rx potassium chloride 20 mEq 40 meq (2 x 20 mEq) PO DAILY 5 03/05/24 Unknown Rx tablet,extended release days #10 tabs Allergy/AdvReac Type Severity Reaction Status Date / Time No Known Allergies Allergy Verified 03/18/24 21:37 Family History Mother Obesity Hypertension Diabetes Arthritis Sister Diabetes Cancer Surgical History H/O removal of cyst H/O Spinal surgery History of arthroscopic knee surgery History of hernia repair Hx of cholecystectomy Social History household members: spouse Smoking Status: Former smoker quit date: 09/07/77 alcohol intake: current alcohol intake frequency: holidays/special occasions only substance use type: does not use ROS ROS ED Constitutional Constitutional ED: Reports fever(s); Denies chills or sweats Eyes Eyes: Denies blurry vision or change in vision ENT ENT ED: Denies ear pain or sore throat Cardiovascular Cardiovascular: Denies chest pain, palpitations or racing heartbeat Respiratory/Chest Respiratory/Chest: Denies cough, dyspnea or sputum Gastrointestinal Gastrointestinal: Denies abdominal pain, constipation, diarrhea, nausea or vomiting Genitourinary Genitourinary ED: Reports dysuria and urinary frequency; Denies hematuria Musculoskeletal Musculoskeletal: Denies arthralgias, myalgias or neck pain Integumentary Denies abscess, Abrasions or rash Neurologic Neurologic: Denies headache(s), paresthesias or weakness Psychiatric Psychiatric: Denies anxiety, depression, suicidal ideation or suicidal thoughts Endocrine Endocrinology: Denies polydipsia or polyuria EXAM Physical Exam Const Vital Signs: 03/18/24 21:33 03/18/24 21:37 Temperature 99.4 F H 98 F Temperature Source Oral Tympanic Pulse Rate 111 H 80 Respiratory Rate 18 16 Blood Pressure 153/76 H 144/67 H Blood Pressure Mean 101 92 Pulse Ox 97 98 Oxygen Delivery Method Room Air Positive well nourished General Appearance ED: NAD; Negative for pallor HEENT Reports moist mucous membranes normocephalic and atraumatic Eyes PERRL and EOMs intact bilaterally Resp normal respiratory effort Cardio regular rate and regular rhythm GI non-tender and non-distended Back/Spine no CVA tenderness Neuro oriented x3 and CN's II-XII intact bilaterally Sensorium / Orientation: alert Motor Exam: strength 5/5 throughout Psych mental status grossly normal Skin General Skin Exam: Negative for jaundice or pallor MDM MDM MDM Narrative Medical decision making narrative: Patient presenting with urinary retention. Differential includes UTI, pyelonephritis. He did have a few home he is currently afebrile. Blood cell count, hemoglobin and platelets. CMP to assess liver function, renal function, electrolytes. Urinalysis to assess for UTI. Patient requested Boucher catheter be placed. CBC shows normal white blood cell count of 8.5. Hemoglobin slightly low at 9.0 although the patient did have surgery this week. His last hemoglobin at [place] was about 10.5. Patient denies black or bloody stools. Hemoccult was negative. Renal function is slightly worsened so he will be given IV fluids. Urinalysis consistent with infection. Looking at his old urine culture from the other day it looks as if he has a multidrug-resistant organism and since he still has UTI symptoms I recommend admitting him with IV antibiotics. Patient also having constipation issues since his surgery. He requested an enema which was provided. Discussed with the hospitalist who recommended imipenem. Patient will to admission. Impression: 1. UTI 2. Dehydration 3. Anemia 4. Constipation Lab Data Attestation: I reviewed the patient's lab results. Labs: Laboratory Results - last 24 hr 03/18/24 23:30 WBC 8.5 RBC 3.21 L Hgb 9.0 L Hct 27.0 L MCV 84.1 MCH 28.0 MCHC 33.3 RDW Std Deviation 42.5 RDW Coeff of [place] 13.8 Plt Count 102 L MPV 9.6 Immature Gran % (Auto) 0.500 Neut % (Auto) 82.1 H Lymph % (Auto) 8.1 L [place] % (Auto) 7.8 Eos % (Auto) 1.1 Baso % (Auto) 0.4 Absolute Neuts (auto) 7.0 Absolute Lymphs (auto) 0.69 L Nucleated RBC % 0 Sodium 130 L Potassium 3.2 L Chloride 97 L Carbon Dioxide 25.0 Anion Gap 8 BUN 66 H Creatinine 2.24 H Est GFR (MDRD) Af Amer 37 L Est GFR (MDRD) Non-Af 31 L BUN/Creatinine Ratio 29.5 H Glucose 223 H Calcium 9.2 Total Bilirubin 1.70 H AST 51 H ALT 14 L Alkaline Phosphatase 45 Total Protein 6.3 L Albumin 2.8 L Globulin 3.5 Albumin/Globulin Ratio 0.8 L Urine Color Yellow Urine Clarity Cloudy Urine pH 6.0 Ur Specific [place] 1.015 Urine Protein 100 H Urine Glucose (UA) 1000 H Urine Ketones Negative Urine Occult Blood 50 H Urine Nitrite Negative Urine Bilirubin Negative Urine Urobilinogen Normal Ur Leukocyte Esterase 500 H Urine RBC 0 SEEN Urine WBC >100 SEEN Ur Squamous Epith Cells 0 SEEN Urine Bacteria 3+ Urine Mucus 0 SEEN Discharge Plan Triage Chief Complaint: Complaint Other Complaint: Lower Extremity Injury ED Provider: Ahmet Newton Dx/Rx/DC Orders Prescriptions: No Action atenolol 50 mg tablet 50 mg PO DAILY hydrochlorothiazide 25 mg tablet 25 mg PO DAILY cranberry extract 200 mg capsule 200 mg PO DAILY Rx Instructions: administer with a meal multivitamin Tablet 1 tab PO DAILY Ozempic 1 mg/dose (4 mg/3 mL) pen injector 1 mg subcut QWEEK celecoxib 200 mg capsule 200 mg PO DAILY dapagliflozin propanediol [Farxiga] 5 mg tablet 5 mg PO DAILY tamsulosin [Flomax] 0.4 mg capsule 0.4 mg PO DAILY triamcinolone acetonide [Nasacort Allergy] 55 mcg aerosol,spray 2 spray intranasal DAILY Rx Instructions: administer into each nostril ferrous sulfate 325 mg (65 mg iron) tablet,delayed release (DR/EC) 325 mg PO DAILY pantoprazole 20 mg tablet,delayed release (DR/EC) 20 mg PO DAILY mecobalamin (vitamin B12) 1,000 mcg tablet,chewable 5,000 mcg PO DAILY simvastatin 10 MG tablet 10 mg PO DAILY amlodipine 10 mg tablet 10 mg PO DAILY doxycycline monohydrate 40 mg capsule,IR - delay rel,biphase 20 mg PO DAILY cefpodoxime 200 mg tablet 200 mg PO BID 10 Days Qty: 20 0RF Rx Instructions: must administer with a meal/food potassium chloride 20 mEq tablet extended release 40 meq PO DAILY 5 Days Qty: 10 0RF Primary Care Provider: Pati Amaya Referrals: Pati Amaya DO [Primary Care Provider] - Print Language: Maltese
[2024-03-18 22:33] VITALS: BP 145/64; PULSE 92; RESP 16; TEMP 36.7; O2SAT 95
[2024-03-18] MEDS: Acetaminophen 325 MG Tablet 650 MG PO (23:21)
[2024-03-18] MEDS: oxyCODONE 5 MG Tablet PO (23:21)
[2024-03-18 23:33] VITALS: BP 155/64; PULSE 90; RESP 16; TEMP 36.7; O2SAT 95
[2024-03-18 23:40] LABS: Mucous, Urine 0 SEEN /hpf (<or=2+); Red Blood Cells-Urine 0 SEEN /hpf (0-5); Squamous Epithelial Cells - UA 0 SEEN /hpf (0-5)
[2024-03-18 23:45] LABS: Absolute Lymphocyte Count 0.69 X10^3/uL (0.83-4.51); Basophil# 0.03 X10^3/uL; Basophil% 0.4 % (0-1); Eosinophil# 0.09 X10^3/uL; Eosinophils% 1.1 % (0-5); Lymphocyte # 0.69 X10^3/ul (0.83-4.51); Lymphocyte % 8.1 % (19-41); Mean Corp Hgb Conc 33.3 g/dL (32-36); Mean Corpuscular Volume 84.1 fL (80-94); Mean Platelet Vol. 9.6 fl (6.2-12.0); Monocyte# 0.66 X10^3/uL; Monocyte% 7.8 % (0-10); NRBC Flagged by Analyzer 0 % (0-5); Neutrophil % 82.1 % (47-70); Platelet Count 102 K/mm3 (150-450); RBC Distribution Width CV 13.8 % (11.6-14.6); RBC Distribution Width SD 42.5 fl (35.1-43.9); Red Blood Count 3.21 M/mm3 (4.6-6.2); White Blood Count 8.5 K/mm3 (4.4-11.0)
[2024-03-18 23:55] LABS: Color, Urine Yellow (Yellow); Glucose, Dipstick 1000 mg/dl (Normal); Ketone-Dipstick Negative (Negative); Leukocyte Esterase-Dipstick 500 /ul (Negative); Nitrite-Dipstick Negative (Negative); Occult Blood-Urine 50 /ul (Negative); Protein-Dipstick 100 mg/dl (Negative); Specific Gravity, Urine 1.015 (1.002-1.030); Urine Bilirubin Dipstick Negative (Negative); Urine Clarity Cloudy (Clear); Urine Urobilinogen Normal (Normal)
[2024-03-19] VITALS (11 sets, daily range): BP systolic 126–155; BP diastolic 60–72; PULSE 78–98; RESP 16–20; TEMP 36.6–38.6; O2SAT 95–99; BMI 34.3; BMI 33.9
[2024-03-19 00:04] LABS: Bacteria 3+ /hpf (None Seen); White Blood Cells >100 SEEN /hpf (0-5)
[2024-03-19 00:05] LABS: ALB/GLOB Ratio 0.8 RATIO (0.9-2.4); AST(SGOT) 51 U/L (15-37); Alanine Aminotransfer ALT/SGPT 14 U/L (16-61); Albumin, Serum 2.8 g/dL (3.2-5.0); Alkaline Phosphatase 45 U/L (45-117); Anion Gap 8 (5-15); BUN 66 mg/dL (7-18); BUN/Creat Ratio 29.5 RATIO (10-20); Calcium,Total 9.2 mg/dL (8.5-10.1); Chloride 97 mmol/L (98-107); Creatinine, Serum 2.24 mg/dL (0.70-1.30); EST Glomerular Filtration Rate 31 mL/min (>60); Est Glom Filt Rate - Afr Amer 37 mL/min (>60); Globulin 3.5 g/dL (2.2-4.2); Glucose 223 mg/dL (74-106); Potassium 3.2 mmol/L (3.5-5.1); Protein, Total 6.3 g/dL (6.4-8.2); Sodium Level 130 mmol/L (136-145)
--- NOTE | 2024-03-19 01:33 | PCM.HP.STD ---
HPI - General General Date of Admission: 03/19/24 Date of Service: 03/19/24 Chief Complaint: Urinary retention, fevers. HPI Narrative The patient is a 68 y/o M w/ PMHx: Former tobacco use, CKD stage III unclear subtype, Obesity, BPH, HTN, HLD, GERD, Gilbert's syndrome, history of UTI and pyelonephritis with history of urethral stricture who presents to the [facility] ED on 03/19/24 with history of onset of acute urinary retention, foul-smelling urine, increased urinary frequency with recent left total knee surgery 03/15/[address] Sanchez at [facility] and since then onset of dysuria and difficulty with urination with worsening ability to void with previous similar history with self administration of Tylenol since surgery as well as oxycodone to assist with pain with temperature at home reported 101.9 prompting ED evaluation to be cautious. He denies any significant pain to his left knee status post recent intervention. He notes currently in the ED upon evaluation that he is been dribbling urine but otherwise has not been had full stream. There is a pending Boucher catheter placement. He does report that 2 weeks prior he was treated for a kidney infection. Workup in the ED included T99.4, heart rate 111, BP 153/76, respiratory rate 18, 97% on room air with most recent repeat vital signs T98, heart rate 80, BP 144/67, respiratory rate 16, 98% on room air, CBC with WC 8.5, hemoglobin 9.0, MCV 84.1, platelet 102 without marked left shift with lymphopenia, CMP with sodium 130, potassium 3.2, chloride 97, BUN/creatinine 66/2.24, GFR 31, glucose 223, T. bili 1.70, AST/ALT 51/14, hepatic profile not marked appearing otherwise, urinalysis noted to be cloudy, specific gravity 1.015, protein 100, glucose of thousand, ketone negative, occult blood 50, negative nitrite, leukocyte Estrace 500, urine RBC 0, urine WBCs greater than 100 with 3+ urine bacteria, urine culture pending per ED. Most recent urine culture noted 03/05/2024 greater than 100,000 ESBL E. coli with noted outpatient prescription for cefpodoxime 200 mg p.o. twice daily x 10-day supply but it appears resistant to Ancef, cefepime, Rocephin but was sensitive to cefotetan only. In the ED patient administered IV imipenem, Tylenol 650 mg x 1 as well as oxycodone 5 mg x 1. [facility] Medical History Urinary retention Apnea Low platelet count Hx of sepsis Knee pain Shoulder pain [place] syndrome Vitamin D deficiency Hypertension Hyperlipidemia Diabetes Home Medications ?Medication ?Instructions ?Recorded ?Last Taken ?Type simvastatin 10 mg tablet 10 mg PO DAILY cholesterol 03/13/17 12/23/17 07:00 History 10 mg amlodipine 10 mg tablet 10 mg PO DAILY blood pressure 02/09/24 Unknown History celecoxib 200 mg capsule 200 mg PO DAILY 02/09/24 Unknown History dapagliflozin propanediol 5 mg 5 mg PO DAILY 02/09/24 Unknown History tablet (Farxiga) ferrous sulfate 325 mg (65 mg 325 mg PO DAILY 02/09/24 Unknown History iron) tablet,delayed release pantoprazole 20 mg tablet,delayed 20 mg PO DAILY 02/09/24 Unknown History release semaglutide 1 mg/dose (4 mg/3 mL) 1 mg subcut QWEEK 02/09/24 Unknown History subcutaneous pen injector (Ozempic) tamsulosin 0.4 mg capsule (Flomax) 0.4 mg PO DAILY 02/09/24 Unknown History triamcinolone acetonide 55 mcg 2 spray intranasal DAILY 02/09/24 Unknown History nasal spray aerosol (Nasacort Allergy) atenolol 50 mg tablet 50 mg PO DAILY 02/23/24 Unknown History cranberry extract 200 mg capsule 200 mg PO DAILY 02/23/24 Unknown History doxycycline monohydrate 40 mg 20 mg PO DAILY facial infection 02/23/24 Unknown History capsule,immediate - delay release hydrochlorothiazide 25 mg tablet 25 mg PO DAILY 02/23/24 Unknown History mecobalamin (vitamin B12) 1,000 5,000 mcg PO DAILY 02/23/24 Unknown History mcg chewable tablet multivitamin 1 tab PO DAILY 02/23/24 Unknown History cefpodoxime 200 mg tablet 200 mg PO BID 10 days #20 tabs 03/05/24 Unknown Rx potassium chloride 20 mEq 40 meq (2 x 20 mEq) PO DAILY 5 03/05/24 Unknown Rx tablet,extended release days #10 tabs Allergy/AdvReac Type Severity Reaction Status Date / Time No Known Allergies Allergy Verified 03/18/24 21:37 Family History Mother Obesity Hypertension Diabetes Arthritis Sister Diabetes Cancer Father Alcoholism Surgical History H/O removal of cyst H/O Spinal surgery History of arthroscopic knee surgery History of hernia repair Hx of cholecystectomy Social History household members: spouse Smoking Status: Former smoker quit date: 09/07/77 alcohol intake: current alcohol intake frequency: holidays/special occasions only substance use type: does not use ROS ROS Narrative Admission Review of Systems: CONSTITUTIONAL: No weight loss, + fever, chills, weakness or fatigue. HEENT: Eyes: No visual loss, blurred vision, double vision or yellow sclerae. Ears, Nose, Throat: No hearing loss, sneezing, congestion, runny nose or sore throat. SKIN: No rash or itching, lesions, wounds except + recent OR with left total knee replacement with incision with dressing in place, dry drainage otherwise no active drainage noted. CARDIOVASCULAR: No chest pain, chest pressure or chest discomfort, palpitations, edema, orthopnea, syncopal events. RESPIRATORY: No shortness of breath, cough or sputum, wheezing, hemoptysis. GASTROINTESTINAL: No anorexia, nausea, vomiting or diarrhea, abdominal pain, melena, BRBPR. GENITOURINARY: + Urinary frequency with minimal output, retention, foul-smelling urine. NEUROLOGICAL: No headache, dizziness, syncope, paralysis, ataxia, numbness or tingling in the extremities, focal weakness, change in bowel or bladder control, seizure. MUSCULOSKELETAL: + muscle, back pain, joint pain or stiffness. HEMATOLOGIC: + Chronic anemia, no specific easy bleeding/bruising. LYMPHATICS: No enlarged nodes. No history of splenectomy. PSYCHIATRIC: No history of depression or anxiety. ENDOCRINOLOGIC: No reports of sweating, cold or heat intolerance. No polyuria or polydipsia. ALLERGIES: No history of asthma, hives, eczema or rhinitis. Vital Signs Vital Signs Vital Signs: 03/18/24 21:33 03/18/24 21:37 Temperature 99.4 F H 98 F Temperature Source Oral Tympanic Pulse Rate 111 H 80 Respiratory Rate 18 16 Blood Pressure 153/76 H 144/67 H Blood Pressure Mean 101 92 Pulse Ox 97 98 Oxygen Delivery Method Room Air Physical Exam Narrative Physical Examination: General: Awake, alert, oriented x 3 and cooperative, seated upright in the ED bed, fatigued otherwise no acute distress, room smells of very foul urine. Skin: Normal color, normal turgor, no icterus, no cyanosis except for recent left total knee replacement with postoperative home dressing in place with no active drainage. HEENT: AT/NC, EOMI, PERRLA, mildly dry MM, no carotid bruits or JVD noted. Lungs: Mildly diminished, greater bases, appropriate effort, no rales, ronchi or wheezing. Heart: Regular rate and rhythm; no gallop, rub audible. Abdomen: Soft, obese, NTTP aside from mild suprapubic discomfort with palpation, ND, normal BS, no appreciated HSM. Extremities: No cyanosis, no clubbing, left lower extremity pedal to proximal ledezma 1-2+ pitting edema and is noted status post left total knee replacement, dressing in place, no active drainage. Neurological: Patient awake, alert, oriented as noted, cognitive function intact; pupils equally reactive to light and accommodation, cranial nerves grossly normal, moving all 4 extremities except expected limitation left lower extremity given recent total knee replacement, strength moderately globally decreased secondary to acute presentation. Psychiatric: Affect appears fatigued, ill-appearing, no acute evidence of depressive or anxiety feelings. Results Lab / Micro Data 03/18/24 23:30 03/18/24 23:30 Labs: Laboratory Results - last 24 hr 03/18/24 23:30: WBC 8.5, RBC 3.21 L, Hgb 9.0 L, Hct 27.0 L, MCV 84.1, MCH 28.0, MCHC 33.3, RDW Std Deviation 42.5, RDW Coeff of Juan Carlos 13.8, Plt Count 102 L, MPV 9.6, Immature Gran % (Auto) 0.500, Neut % (Auto) 82.1 H, Lymph % (Auto) 8.1 L, [place] % (Auto) 7.8, Eos % (Auto) 1.1, Baso % (Auto) 0.4, Absolute Neuts (auto) 7.0, Absolute Lymphs (auto) 0.69 L, Nucleated RBC % 0, Sodium 130 L, Potassium 3.2 L, Chloride 97 L, Carbon Dioxide 25.0, Anion Gap 8, BUN 66 H, Creatinine 2.24 H, Est GFR (MDRD) Af Amer 37 L, Est GFR (MDRD) Non-Af 31 L, BUN/Creatinine Ratio 29.5 H, Glucose 223 H, Calcium 9.2, Total Bilirubin 1.70 H, AST 51 H, ALT 14 L, Alkaline Phosphatase 45, Total Protein 6.3 L, Albumin 2.8 L, Globulin 3.5, Albumin/Globulin Ratio 0.8 L, Urine Color Yellow, Urine Clarity Cloudy, Urine pH 6.0, Ur Specific Sulphur 1.015, Urine Protein 100 H, Urine Glucose (UA) 1000 H, Urine Ketones Negative, Urine Occult Blood 50 H, Urine Nitrite Negative, Urine Bilirubin Negative, Urine Urobilinogen Normal, Ur Leukocyte Esterase 500 H, Urine RBC 0 SEEN, Urine WBC >100 SEEN, Ur Squamous Epith Cells 0 SEEN, Urine Bacteria 3+, Urine Mucus 0 SEEN Micro: Microbiology 03/19/24 00:14 Stool Stool Occult Blood (CURTIS) - Final Assessment & Plan Assessment/Plan (1) Urinary retention: (2) UTI (urinary tract infection): PLAN: Plan The patient is a 68 y/o M w/ PMHx: Former tobacco use, CKD stage III unclear subtype, Morbid obesity, BPH, HTN, HLD, GERD, Gilbert's syndrome, history of UTI and pyelonephritis with history of urethral stricture who presents to the [facility] ED on 03/19/24 with history of onset of acute urinary retention with recent left knee surgery and since then onset of dysuria and difficulty with urination with worsening ability to void with previous similar history with self administration of Tylenol since surgery as well as oxycodone to assist with pain with temperature at home reported 101.9 prompting ED evaluation to be cautious. #1. Acute Complicated Urinary Tract Infection with acute obstructive pathology/urinary retention with history of urethral stricture with BPH with history of recent ESBL E. coli urinary tract infection with significant resistant patterns: Will admit to [facility] upon ED evaluation remarkable, pending UCx, continue IVFs, monitor I/Os, given review of urine culture to be cautious will maintain on zosyn based on prior sensitivities w/ transition as able pending sensitivities and speciation. Of note he follows with urology out of town. #2. Acute on chronic normocytic anemia/iron deficiency anemia: Stool guaiac negative in the ED, admission hemoglobin 9.0, MCV 84.1, baseline most recently 03/05/24 hemoglobin 12.3, unclear exactly why the sudden drop but did have recent operative intervention, will obtain iron panel, ferritin and repeat CBC in a.m., if further dropping despite negative stool guaiac and stable thrombocytopenia may need to consider further assessment. Continue iron oral supplementation. #3. Acute hyponatremia, hypochloremia, suspected hypovolemic: Admission CMP with sodium 130, chloride 97, will continue to administer IV fluids and repeat CMP in AM. #4. Hypokalemia: Admission K+ 3.2, magnesium level requested, supplementation given, repeat level in AM. #5. Mild acute renal insufficiency on CKD stage III unclear subtype: Admission BUN/creatinine 66/2.24, GFR 31, most recent baseline creatinine noted prior 03/05/24 creatinine 1.91, GFR 37 at that time, will continue to administer IV fluids and will continue to trend. #6. Recent left knee surgery: s/p 03/15/24 L TKR, will maintain on fall precautions, continue routine post-op dressing care, PT/OT/CM consultation for discharge planning. #7. Hypertension: Will temporally hold hydrochlorothiazide given planned hydration, will continue atenolol and amlodipine with hold parameters as needed, as needed IV hydralazine #8. Chronic thrombocytopenia, unclear exact etiology: Admission platelet 102, baseline prior to this ranged 60 to low 100 range, appears stable, continue to trend #9. Gilbert's syndrome: Patient CMP with total bilirubin 1.70, AST/ALT 51/14, will continue to trend CMP. #10. Diabetes mellitus type II: Hold oral home regimen, continue home insulin regimen, ADA diet, accu checks w/ ISS. #11. Obesity: Weight loss and lifestyle changes encouraged. #12. BPH: We will continue patient on Flomax regimen but given presentation will increase to twice daily. #13. Hyperlipidemia: We will continue patient on statin therapy. #14. Former tobacco use: Encourage continued tobacco cessation. #15. GERD: We will continue patient on PPI. #16. DVT prophylaxis: SCDs, defer chemoprophylaxis given decrease in hemoglobin pending further assessment. #17. CODE status: Patient HCPYULISA is his who is present and living will is currently in place. Full Code status. Charges/Coding Visit Charges Inpatient E&M: 83617 Init Hosp L3
[2024-03-19 01:52] LABS: Magnesium 2.3 mg/dL (1.6-2.6)
[2024-03-19] MEDS: Polyethylene Glycol 3350 17 GM PACKET PO ×2 (03:52→09:17)
[2024-03-19] MEDS: Potassium Chloride Oral Tablet 20 MEQ 40 MEQ PO ×2 (03:52→09:18)
[2024-03-19] MEDS: 0.9% Normal Saline (1000mL) 1,000 ML 100 ML IV (05:04)
[2024-03-19] MEDS: Piperacil/Tazobactam 3.375 GM in 0.9% Normal Saline (50mL MB+) 50 ML IV ×3 (05:04→22:03)
[2024-03-19] MEDS: 0.9% Normal Saline (250mL Bag) 250 ML 15 ML IV (05:05)
[2024-03-19] MEDS: 0.9% Saline Lock 10 ML Syringe IV (05:05)
[2024-03-19 06:20] LABS: Absolute Lymphocyte Count 0.86 X10^3/uL (0.83-4.51); Basophil# 0.02 X10^3/uL; Basophil% 0.3 % (0-1); Eosinophil# 0.09 X10^3/uL; Eosinophils% 1.1 % (0-5); Hemoglobin 8.9 g/dL (13.0-16.5); Lymphocyte # 0.86 X10^3/ul (0.83-4.51); Lymphocyte % 10.9 % (19-41); Mean Corpuscular Hgb 28.1 pg (27.0-32.0); Mean Corpuscular Volume 85.2 fL (80-94); Mean Platelet Vol. 9.4 fl (6.2-12.0); Monocyte# 0.89 X10^3/uL; Monocyte% 11.3 % (0-10); NRBC Flagged by Analyzer 0 % (0-5); Neutrophil # 5.97 X10^3/uL (2.7-7.7); Neutrophil % 75.9 % (47-70); POSITIVE COUNT YES; Platelet Count 95 K/mm3 (150-450); RBC Distribution Width CV 13.7 % (11.6-14.6); RBC Distribution Width SD 42.4 fl (35.1-43.9); Red Blood Count 3.17 M/mm3 (4.6-6.2); White Blood Count 7.9 K/mm3 (4.4-11.0)
[2024-03-19 06:27] LABS: Differential Indicated SCAN CRITERIA MET
[2024-03-19] MEDS: Insulin Lispro 100 UNIT/ML INSULN.PEN SC ×4 (06:44→22:04)
[2024-03-19 07:03] LABS: ALB/GLOB Ratio 0.8 RATIO (0.9-2.4); AST(SGOT) 49 U/L (15-37); Alanine Aminotransfer ALT/SGPT 15 U/L (16-61); Albumin, Serum 2.8 g/dL (3.2-5.0); Alkaline Phosphatase 43 U/L (45-117); Anion Gap 10 (5-15); BUN 65 mg/dL (7-18); BUN/Creat Ratio 31.4 RATIO (10-20); Calcium,Total 9.5 mg/dL (8.5-10.1); Chloride 98 mmol/L (98-107); Creatinine, Serum 2.07 mg/dL (0.70-1.30); EST Glomerular Filtration Rate 34 mL/min (>60); Est Glom Filt Rate - Afr Amer 41 mL/min (>60); Estimated Creatinine Clearance 40.73 ml/min; Ferritin 172 ng/mL (26-388); Globulin 3.5 g/dL (2.2-4.2); Glucose 187 mg/dL (74-106); Iron 19 ug/dL (65-175); Iron Binding Capacity,Total 241 ug/dL (250-450); PERCENT IRON SATURATION 7.9 % (15.0-55.0); Potassium 3.2 mmol/L (3.5-5.1); Protein, Total 6.3 g/dL (6.4-8.2); Sodium Level 132 mmol/L (136-145)
[2024-03-19 07:07] LABS: Bedside Glucose 183 mg/dL (74-106)
[2024-03-19] MEDS: Celecoxib 200 MG Capsule PO (09:17)
[2024-03-19] MEDS: Pantoprazole Sodium 20 MG Tablet PO (09:17)
[2024-03-19] MEDS: Ferrous Sulfate 325 MG Tablet PO (09:18)
[2024-03-19] MEDS: Atenolol 50 MG Tablet PO (09:18)
[2024-03-19] MEDS: Tamsulosin HCl 0.4 MG Capsule PO ×2 (09:19→22:02)
[2024-03-19] MEDS: amLODIPine 10 MG Tablet PO (09:22)
[2024-03-19] MEDS: Fluticasone 0.05% 1 SPRAY NASAL.SRY 2 SPRAY NASAL (09:22)
[2024-03-19] MEDS: Acetaminophen 325 MG Tablet 650 MG PO ×2 (12:24→22:03)
[2024-03-19 12:35] LABS: Bedside Glucose 264 mg/dL (74-106)
--- NOTE | 2024-03-19 14:25 | PCM.HOSP.N ---
Hospitalist Note Patient admitted earlier this morning for urinary retention and fevers after recent total knee replacement surgery on 03/15. Saw patient at bedside later this morning. Patient was laying back comfortably in bed, conversing normally, in no acute distress. He did report having continued fevers and mild chills at this time, stated that he felt similar to how he did earlier this morning. He was tolerating the Boucher catheter without issue. Urine culture growing ESBL E. coli and patient being treated with IV Zosyn currently as the E. coli is sensitive to this. Will continue Zosyn for now, no other changes to current management. Full progress note to follow tomorrow.
--- NOTE | 2024-03-19 15:30 | CASEMGMT ---
RN?CM?COVERING AND LINING SUPERVISOR?CM?to room to meet with patient for initial transition planning/care coordination?assessment.?RN?CM?introduced self and role at [facility].? Pt voices understanding and consents to?assessment?at this time.? Pt sitting up in chair in room in no distress at this time.?Pt just returned from the bathroom. in room visiting. Pt is A/O at this time and answers all questions appropriately.?? Care providers, pharmacy, and demographics verified/updated at this time. PCP: Dr Amaya Specialists: Dr Vega-urologist in [place], Dr Sanchez-ortho. Pt just had knee surgery 03/15 Preferred [facility]acy: [facility] Insurance: Andrzej NEWMAN Prescription Benefit:?yes Living Will/HPOA:?Pt has both LW and HCPOA. brought paper copies in today and provided to Anabell YU. LNOK: Marifer Living Arrangements: Lives w/ in w-story home w/basement and 3 steps to enter. FFSU. Pt was independent until recent knee surgery 03/15. Since the surgery, has been assisting w/ADL's and doing IADL's. Transportation:?Pt can drive, but has not been able to since his knee surgery. provides transportation. DME: States has the following DME:?shower chair, cane, walker, glucometer. Pt has a CPAP, but does not use it. HHC/SNF: No hx of SNF. Had HHC when he lived in [place] for IV atb's. Pt currently going to [facility] for OP therapy and wishes to resume this @ discharge. Pt and wish for pt to return home and states has no concerns with going home at time of discharge. Urine cx's pending. Pt and state, if IV atb's would be needed @ discharge, they would like to do this @ home w/HHC again. ? PLAN:??Home w/resumption of OP therapy @ [facility], if no IV atb's needed @ dc. If IV atb's needed, pt and would like do @ home w/HHC. Jaiden BSN?RN?CM
[2024-03-19 18:51] LABS: Bedside Glucose 207 mg/dL (74-106)
[2024-03-19] MEDS: Atorvastatin Calcium 10 MG Tablet 5 MG PO (22:02)
[2024-03-19 22:28] LABS: Bedside Glucose 209 mg/dL (74-106)
[2024-03-20 03:13] VITALS: BMI 34.1
[2024-03-20 03:34] VITALS: BP 147/78; PULSE 95; RESP 16; TEMP 37.1; O2SAT 97
[2024-03-20] MEDS: Piperacil/Tazobactam 3.375 GM in 0.9% Normal Saline (50mL MB+) 50 ML IV ×3 (06:24→21:28)
[2024-03-20 06:35] LABS: Bedside Glucose 189 mg/dL (74-106)
[2024-03-20] MEDS: Insulin Lispro 100 UNIT/ML INSULN.PEN SC ×4 (06:37→21:29)
[2024-03-20 07:54] VITALS: O2SAT 96
[2024-03-20 08:28] LABS: Hematocrit 26.3 % (40-54); Hemoglobin 8.6 g/dL (13.0-16.5); Mean Corp Hgb Conc 32.7 g/dL (32-36); Mean Corpuscular Hgb 27.9 pg (27.0-32.0); Mean Corpuscular Volume 85.4 fL (80-94); Mean Platelet Vol. 9.4 fl (6.2-12.0); POSITIVE COUNT YES; Platelet Count 83 K/mm3 (150-450); RBC Distribution Width CV 13.9 % (11.6-14.6); RBC Distribution Width SD 42.9 fl (35.1-43.9); Red Blood Count 3.08 M/mm3 (4.6-6.2)
[2024-03-20 08:47] LABS: Anion Gap 9 (5-15); BUN 48 mg/dL (7-18); BUN/Creat Ratio 28.1 RATIO (10-20); Calcium,Total 9.1 mg/dL (8.5-10.1); Chloride 104 mmol/L (98-107); Creatinine, Serum 1.71 mg/dL (0.70-1.30); EST Glomerular Filtration Rate 42 mL/min (>60); Est Glom Filt Rate - Afr Amer 51 mL/min (>60); Estimated Creatinine Clearance 49.42 ml/min; Glucose 199 mg/dL (74-106); Potassium 3.3 mmol/L (3.5-5.1); Sodium Level 136 mmol/L (136-145)
[2024-03-20 09:30] VITALS: BP 128/73; PULSE 89; RESP 16; TEMP 36.7; O2SAT 97
[2024-03-20] MEDS: Potassium Chloride Oral Tablet 20 MEQ 40 MEQ PO ×2 (09:39→11:31)
[2024-03-20] MEDS: Ferrous Sulfate 325 MG Tablet PO (09:39)
[2024-03-20] MEDS: Polyethylene Glycol 3350 17 GM PACKET PO (09:39)
[2024-03-20] MEDS: Pantoprazole Sodium 20 MG Tablet PO ×2 (09:39)
[2024-03-20] MEDS: Atenolol 50 MG Tablet PO (09:39)
[2024-03-20] MEDS: Tamsulosin HCl 0.4 MG Capsule PO ×2 (09:39→21:28)
[2024-03-20] MEDS: Celecoxib 200 MG Capsule PO (09:47)
[2024-03-20] MEDS: Fluticasone 0.05% 1 SPRAY NASAL.SRY 2 SPRAY NASAL (09:47)
[2024-03-20] MEDS: amLODIPine 10 MG Tablet PO (11:27)
[2024-03-20 12:06] LABS: Bedside Glucose 264 mg/dL (74-106)
--- NOTE | 2024-03-20 12:16 | PN.HOSP_ITS ---
Reason for Visit Reason for Visit: Diagnoses Urinary tract infection, site not specified (03/19/24) Retention of urine, unspecified (03/19/24) Subjective Subjective Saw patient at bedside this morning. Patient was sitting up comfortably in bedside chair, conversing normally, in no acute distress. Appeared clinically improved compared to yesterday. Stated he has not had any more fevers or chills since yesterday afternoon. He has been tolerating the Boucher catheter without issue. Continues to have left knee brace in place after recent left knee replacement, no concerns with brace. No other new concerns today. Objective Data Objective Data Vital Signs: Vital Signs Temp Pulse Resp BP Pulse Ox O2 Del Method 98.7 F 95 16 147/78 H 96 Room Air 03/20/24 03:34 03/20/24 03:34 03/20/24 03:34 03/20/24 03:34 03/20/24 07:54 03/20/24 08:31 Oxygen Delivery Method Room Air Weight: 107.8 kg Body Mass Index (BMI) 34.1 Intake & Output: Intake and Output for Last 24 Hours 03/18/24 03/19/24 03/20/24 23:59 23:59 23:59 Intake Total 1550 / 1550 850 / 850 Output Total 4400 / 4400 1650 / 1650 Balance -2850 / -2850 -800 / -800 Lab / Micro Data 03/20/24 08:19 03/20/24 08:19 Labs: Laboratory Results - last 24 hr 03/19/24 12:09: POC Glucose 264 H 03/19/24 18:23: POC Glucose 207 H 03/19/24 22:01: POC Glucose 209 H 03/20/24 06:18: POC Glucose 189 H 03/20/24 08:19: WBC 4.0 L, RBC 3.08 L, Hgb 8.6 L, Hct 26.3 L, MCV 85.4, MCH 27.9, MCHC 32.7, RDW Std Deviation 42.9, RDW Coeff of Juan Carlos 13.9, Plt Count 83 L, MPV 9.4, Sodium 136, Potassium 3.3 L, Chloride 104, Carbon Dioxide 23.0, Anion Gap 9, BUN 48 H, Creatinine 1.71 H, Estim Creat Clear Calc 49.42, Est GFR (MDRD) Af Amer 51 L, Est GFR (MDRD) Non-Af 42 L, BUN/Creatinine Ratio 28.1 H, Glucose 199 H, Calcium 9.1 03/20/24 11:35: POC Glucose 264 H Micro: Microbiology 03/18/24 23:30 Urine, Clean Catch Urine Culture - Preliminary GNR lactose mail machine operator 03/19/24 00:14 Stool Stool Occult Blood (CURTIS) - Final Physical Exam Const alert, oriented x3 and no apparent distress Constitutional Narrative: Pleasant elderly male, obese, sitting up comfortably in bedside chair, conversing normally, no acute distress. General Appearance: cooperative and comfortable HEENT normocephalic, head/scalp atraumatic, hearing grossly normal bilaterally, nasal mucous membranes and turbinates normal and moist oral mucous membranes Eyes PERRL, EOMs intact bilaterally and conjunctivae normal Neck full ROM Chest inspection of chest normal Resp normal respiratory effort, normal air movement, no use of accessory muscles and clear to auscultation bilaterally Cardio regular rate, regular rhythm, no murmurs and peripheral pulses 2+ throughout GI normal to inspection, nondistended, normoactive bowel sounds, soft to palpation, non-tender and non-distended no CVA tenderness Bladder / Kidney Exam: catheter in place and bladder normal to palpation Back/Spine normal ROM Extremity Extremity Narrative: Left knee brace in place after recent left knee replacement, stable. Skin no rashes or lesions noted Neuro moves all extremities and no focal motor deficits Speech: speech normal Psych mental status grossly normal Assessment & Plan Assessment/Plan (1) Urinary retention: (2) UTI (urinary tract infection): (3) Thrombocytopenia: (4) [place] syndrome: (5) Anemia: PLAN: Plan Patient is a 68-year-old male who presented [facility] ED on 03/19/2024 with worsening difficulty with urination and fevers. 1. Acute urinary retention, acute UTI with ESBL E. coli, history of BPH with obstructive symptoms ? Infectious disease consulted. Had acute urinary retention following recent left knee replacement on 03/15 as noted below. Retention likely multifactorial in setting of recent procedure, UTI and known history of BPH. Boucher catheter placed on admit with about a liter of urine output. Urine culture growing ESBL E. coli. CT abdomen pelvis from late February showed enlarged central lobar prostate gland protruding into posterior urinary bladder noted to be at least BPH, unchanged from previous. No recent PSA values in chart, PSA ordered. Continue Boucher catheter. Continue treatment with IV Zosyn for now, appreciate further ID recommendations. Likely plan to continue Boucher catheter on discharge with outpatient follow-up with urology; patient agreeable with this plan. Continue home tamsulosin. 2. Recent left knee replacement with mild debility ? PT/OT/case management following. Had left total knee replacement with Dr. Sanchez at [place] on 03/15, tolerated procedure well and was stable for discharge home after that. Continues to have good functional status, planning for home on discharge. 3. Mild creatinine elevation in setting of CKD stage III, resolved ? Creatinine 2.24 on admit, baseline appears to be around 1.6-1.8. Improved to 1.7 by 03/20 after IV fluid resuscitation. Has had good urine output. Monitoring BMP daily as noted below. 4. Hypokalemia ? Potassium 3.2 on admit. Repleting as needed. 5. Hyponatremia, resolved ? Sodium 130 on admit, improved to 136 by hospital day 3 after IV fluid resuscitation. 6. Acute on chronic iron deficiency anemia ? Hemoglobin 9.0 on admit, has remained stable between 8.5 and 9. Previous baseline hemoglobin was around 11-12, suspect acute drop is secondary to acute blood loss from recent knee replacement. No need to monitor further CBCs. 7. History of Gilbert's syndrome with chronic mildly elevated LFTs ? Recent CT abdomen pelvis on 03/05 done for preop clearance for knee replacement with no concerning findings. LFTs at baseline, no need to monitor further. Continue outpatient follow-up. 8. Chronic thrombocytopenia, stable ? Follows with oncology. Platelet count has been between 80 and 100,000 since admission, stable. Chronic medical conditions: ? Obesity: BMI 34 on admit. Complicates hospital course, care and prognosis. ? GERD: Continue home PPI. ? Hypertension: Continue home amlodipine and atenolol. Holding home hydrochlorothiazide, restart when able. ? Hyperlipidemia: Continue home statin. ? Type 2 diabetes mellitus: Home regimen of Farxiga and semaglutide. Continue sliding scale insulin with meals as needed while inpatient. DVT prophylaxis: Lovenox CODE STATUS: Full code, verified Expected disposition: Home, 1 to 2 days Total clinical time spent by myself addressing the patient's medical issues, reviewing all the data, and collaborating with patient's care team: 35 minutes. Charges/Coding Visit Charges Inpatient E&M: 32129 Subs Hosp L2
[2024-03-20 16:45] LABS: Bedside Glucose 227 mg/dL (74-106)
[2024-03-20 21:23] VITALS: BP 153/75; PULSE 86; RESP 18; TEMP 36.9; O2SAT 98
[2024-03-20] MEDS: Atorvastatin Calcium 10 MG Tablet 5 MG PO (21:28)
[2024-03-20] MEDS: Acetaminophen 325 MG Tablet 650 MG PO (21:28)
[2024-03-20 22:33] LABS: Bedside Glucose 240 mg/dL (74-106)
[2024-03-21 03:25] VITALS: BP 136/77; PULSE 78; RESP 18; TEMP 37.2; O2SAT 96
[2024-03-21 04:40] VITALS: BMI 35.0
[2024-03-21] MEDS: Piperacil/Tazobactam 3.375 GM in 0.9% Normal Saline (50mL MB+) 50 ML IV (06:28)
[2024-03-21] MEDS: Insulin Lispro 100 UNIT/ML INSULN.PEN SC ×4 (06:29→22:36)
[2024-03-21 07:02] LABS: Bedside Glucose 190 mg/dL (74-106)
[2024-03-21 07:15] LABS: Anion Gap 7 (5-15); BUN 41 mg/dL (7-18); BUN/Creat Ratio 27.3 RATIO (10-20); Calcium,Total 8.5 mg/dL (8.5-10.1); Chloride 105 mmol/L (98-107); EST Glomerular Filtration Rate 49 mL/min (>60); Est Glom Filt Rate - Afr Amer 59 mL/min (>60); Estimated Creatinine Clearance 57.11 ml/min; Glucose 193 mg/dL (74-106); Potassium 3.8 mmol/L (3.5-5.1); Sodium Level 135 mmol/L (136-145)
[2024-03-21 08:07] VITALS: O2SAT 97
[2024-03-21 08:48] VITALS: BP 146/74; PULSE 91; RESP 16; TEMP 37.6; O2SAT 95
[2024-03-21] MEDS: Ferrous Sulfate 325 MG Tablet PO (08:59)
[2024-03-21] MEDS: Tamsulosin HCl 0.4 MG Capsule PO ×2 (09:00→22:36)
[2024-03-21] MEDS: Fluticasone 0.05% 1 SPRAY NASAL.SRY 2 SPRAY NASAL (09:00)
[2024-03-21] MEDS: Potassium Chloride Oral Tablet 20 MEQ 40 MEQ PO (09:00)
[2024-03-21] MEDS: amLODIPine 10 MG Tablet PO (09:01)
[2024-03-21] MEDS: Atenolol 50 MG Tablet PO (09:01)
[2024-03-21] MEDS: Polyethylene Glycol 3350 17 GM PACKET PO (09:01)
[2024-03-21 11:46] LABS: Bedside Glucose 260 mg/dL (74-106)
[2024-03-21 13:52] VITALS: BP 127/63; PULSE 78; RESP 16; TEMP 37.1; O2SAT 98
--- NOTE | 2024-03-21 15:02 | PCM.CONS.GEN ---
Assessment & Plan Assessment/Plan (1) UTI (urinary tract infection): PLAN: ESBL ecoli uti with SWAPNA due to urinary retention s/p L knee replacement last week. Will change to ertapenem. If SWAPNA continues to improve, choice at discharge will be po bactrim vs IM or IV ertapenem. Will follow, thank you HPI Consult Data Date of Consult: 03/21/24 HPI Narrative Reason for Consultation: uti HPI Narrative: YUDITH MCKEE, is a 68 M who presented 03/19 after L knee replacement 03/[address] [facility] [address] Sanchez. Knee doing ok, but progressive difficulty urinating, developed fever, abd pain. Came to ED, admitted on zosyn after dose of imipenem. Had been given cefpodoxime 03/05 for esbl uti. Feeling a little better. Full ROS performed and neg except as noted above. COUNT INCLUDES THE [facility] Medical History Urinary retention Apnea Low platelet count Hx of sepsis Knee pain Shoulder pain Barnard syndrome Vitamin D deficiency Hypertension Hyperlipidemia Diabetes Home Medications ?Medication ?Instructions ?Recorded ?Last Taken ?Type simvastatin 10 mg tablet 10 mg PO DAILY cholesterol 03/13/17 12/23/17 07:00 History 10 mg amlodipine 10 mg tablet 10 mg PO DAILY blood pressure 02/09/24 Unknown History dapagliflozin propanediol 5 mg 5 mg PO DAILY , 02/09/24 Unknown History tablet (Farxiga) ferrous sulfate 325 mg (65 mg 325 mg PO DAILY iron 02/09/24 Unknown History iron) tablet,delayed release pantoprazole 20 mg tablet,delayed 20 mg PO DAILY . 02/09/24 Unknown History release semaglutide 1 mg/dose (4 mg/3 mL) 1 mg subcut QWEEK . 02/09/24 Unknown History subcutaneous pen injector (Ozempic) tamsulosin 0.4 mg capsule (Flomax) 0.4 mg PO DAILY prost 02/09/24 Unknown History atenolol 50 mg tablet 50 mg PO DAILY , 02/23/24 Unknown History cranberry extract 200 mg capsule 200 mg PO DAILY , 02/23/24 Unknown History doxycycline monohydrate 40 mg 20 mg PO DAILY facial infection 02/23/24 Unknown History capsule,immediate - delay release hydrochlorothiazide 25 mg tablet 25 mg PO DAILY hea 02/23/24 Unknown History mecobalamin (vitamin B12) 1,000 5,000 mcg PO DAILY . 02/23/24 Unknown History mcg chewable tablet multivitamin 1 tab PO DAILY , 02/23/24 Unknown History Allergy/AdvReac Type Severity Reaction Status Date / Time No Known Allergies Allergy Verified 03/18/24 21:37 Family History (Updated 03/19/24 @ 02:[address] Antonia Marquis MD) Mother Obesity Hypertension Diabetes Arthritis Sister Diabetes Cancer Father Alcoholism Surgical History H/O removal of cyst H/O Spinal surgery History of arthroscopic knee surgery History of hernia repair Hx of cholecystectomy Social History household members: spouse Smoking Status: Former smoker quit date: 09/07/77 alcohol intake: current alcohol intake frequency: holidays/special occasions only substance use type: does not use Physical Exam Const alert, oriented x3 and no apparent distress General Appearance: cooperative HEENT normocephalic and head/scalp atraumatic Eyes PERRL and EOMs intact bilaterally Neck supple and No nodes Resp normal air movement and clear to auscultation bilaterally Cardio regular rate and regular rhythm GI soft to palpation, non-tender and non-distended Extremity General Extremity: Negative for edema Skin no rashes or lesions noted Neuro CN's II-XII intact bilaterally Lab / Micro Data Attestation: I reviewed the patient's lab results. 03/20/24 08:19 03/21/24 05:16 Labs: Laboratory Results - last 24 hr 03/20/24 16:19: POC Glucose 227 H 03/20/24 21:26: POC Glucose 240 H 03/21/24 05:16: Sodium 135 L, Potassium 3.8, Chloride 105, Carbon Dioxide 23.0, Anion Gap 7, BUN 41 H, Creatinine 1.50 H, Estim Creat Clear Calc 57.11, Est GFR (MDRD) Af Amer 59 L, Est GFR (MDRD) Non-Af 49 L, BUN/Creatinine Ratio 27.3 H, Glucose 193 H, Calcium 8.5 03/21/24 06:27: POC Glucose 190 H 03/21/24 11:18: POC Glucose 260 H Micro: Microbiology 03/18/24 23:30 Urine, Clean Catch Urine Culture - Preliminary ESBL Escherichia coli
[2024-03-21 15:37] LABS: Absolute Lymphocyte Count 0.54 X10^3/uL (0.83-4.51); Basophil# 0.02 X10^3/uL; Basophil% 0.6 % (0-1); Eosinophil# 0.07 X10^3/uL; Eosinophils% 2.2 % (0-5); Hematocrit 27.8 % (40-54); Hemoglobin 9.3 g/dL (13.0-16.5); Lymphocyte # 0.54 X10^3/ul (0.83-4.51); Lymphocyte % 17.1 % (19-41); Mean Corp Hgb Conc 33.5 g/dL (32-36); Mean Corpuscular Hgb 28.4 pg (27.0-32.0); Mean Corpuscular Volume 84.8 fL (80-94); Mean Platelet Vol. 9.5 fl (6.2-12.0); Monocyte# 0.51 X10^3/uL; Monocyte% 16.1 % (0-10); NRBC Flagged by Analyzer 0 % (0-5); Neutrophil # 2.01 X10^3/uL (2.7-7.7); Neutrophil % 63.7 % (47-70); POSITIVE DIFFERENTIAL YES; Platelet Count 109 K/mm3 (150-450); RBC Distribution Width CV 13.5 % (11.6-14.6); RBC Distribution Width SD 42.2 fl (35.1-43.9); Red Blood Count 3.28 M/mm3 (4.6-6.2); White Blood Count 3.2 K/mm3 (4.4-11.0)
[2024-03-21 15:43] LABS: Differential Indicated SCAN CRITERIA MET
[2024-03-21] MEDS: Ertapenem Sod 1 GM in 0.9% Normal Saline (50mL MB+) 50 ML IV (15:48)
[2024-03-21] MEDS: 0.9% Saline Lock 10 ML Syringe IV (15:48)
[2024-03-21 16:15] LABS: Anisocytosis RARE; Platelet Estimate SLT DEC (ADEQ); Red Cell Morphology N CHROM NORMAL (NORM C&C)
[2024-03-21 16:40] VITALS: BP 142/69; PULSE 76; RESP 16; TEMP 37; O2SAT 95
--- NOTE | 2024-03-21 18:09 | PCM.PN.HOSP ---
Reason for Visit Reason for Visit: Diagnoses Anemia, unspecified (03/19/24) Thrombocytopenia, unspecified (03/19/24) Gilbert syndrome (03/19/24) Urinary tract infection, site not specified (03/19/24) Retention of urine, unspecified (03/19/24) Subjective Subjective Evaluated today, still seeing pain but none outside the room is manageable, Boucher in place Objective Data Objective Data Vital Signs: Vital Signs Temp Pulse Resp BP Pulse Ox O2 Del Method 98.6 F 76 16 142/69 H 95 Room Air 03/21/24 16:40 03/21/24 16:40 03/21/24 16:40 03/21/24 16:40 03/21/24 16:40 03/21/24 16:40 Oxygen Delivery Method Room Air Weight: 110.8 kg Body Mass Index (BMI) 35.0 Intake & Output: Intake and Output for Last 24 Hours 03/19/24 03/20/24 03/21/24 23:59 23:59 23:59 Intake Total 1550 / 1550 950 / 1450 1210 / 1210 Output Total 4400 / 4400 2850 / 3675 1725 / 1725 Balance -2850 / -2850 -1900 / -2225 -515 / -515 Lab / Micro Data 03/21/24 15:20 03/21/24 05:16 Labs: Laboratory Results - last 24 hr 03/20/24 21:26: POC Glucose 240 H 03/21/24 05:16: Sodium 135 L, Potassium 3.8, Chloride 105, Carbon Dioxide 23.0, Anion Gap 7, BUN 41 H, Creatinine 1.50 H, Estim Creat Clear Calc 57.11, Est GFR (MDRD) Af Amer 59 L, Est GFR (MDRD) Non-Af 49 L, BUN/Creatinine Ratio 27.3 H, Glucose 193 H, Calcium 8.5 03/21/24 06:27: POC Glucose 190 H 03/21/24 11:18: POC Glucose 260 H 03/21/24 15:20: WBC 3.2 L, RBC 3.28 L, Hgb 9.3 L, Hct 27.8 L, MCV 84.8, MCH 28.4, MCHC 33.5, RDW Std Deviation 42.2, RDW Coeff of Juan Carlos 13.5, Plt Count 109 L, MPV 9.5, Immature Gran % (Auto) 0.300, Neut % (Auto) 63.7, Lymph % (Auto) 17.1 L, [place] % (Auto) 16.1 H, Eos % (Auto) 2.2, Baso % (Auto) 0.6, Absolute Neuts (auto) 2.0, Absolute Lymphs (auto) 0.54 L, Nucleated RBC % 0, Differential Comment SEE COMMENT, Platelet Estimate SLT DEC, RBC Morphology N CHROM, Anisocytosis RARE Micro: Microbiology 03/18/24 23:30 Urine, Clean Catch Urine Culture - Preliminary ESBL Escherichia coli 03/19/24 00:14 Stool Stool Occult Blood (CURTIS) - Final Physical Exam Narrative General: Alert, oriented, no apparent distress HEENT: Atraumatic, normocephalic Eyes: Anicteric, normal conjunctiva, extraocular movements grossly intact Neck: Supple Respiratory: Clear to auscultation bilaterally, normal respiratory effort Cardiovascular: Regular rate and rhythm GI: Soft, nontender, nondistended Extremities: No edema Musculoskeletal: Moving all extremities, left extremity status post surgery Neuro: No overt focal neurological deficits Skin: No rashes appreciated Psych: Cooperative Assessment & Plan Assessment/Plan (1) Urinary retention: (2) UTI (urinary tract infection): (3) Thrombocytopenia: (4) Anemia: PLAN: Plan # Acute urinary retention likely secondary to BPH with obstruction and MDRO UTI -Patient presented and had Boucher catheter placed with about a liter of urine -Growing ESBL E. coli UTI -ID following, patient on ertapenem, pending kidney function will change patient will DC on ertapenem versus Bactrim -Will keep Boucher on discharge and outpatient follow-up with his urologist -Continue flomax # Recent left knee replacement -PT/OT -Replacement 03/[address] Sanchez -Plans to go home on discharge # SWAPNA on CKD stage III unclear subtype -Creatinine 2.24 on admit, has down trended to 1.5 -Maintain Boucher -He continues to improve patient has possibility be DC on oral antibiotics # Chronic thrombocytopenia -Follows with oncology outpatient basis -Stable #HTN -On amlodipine and atenolol, given hyponatremia hydrochlorothiazide held #Type 2 diabetes mellitus -Glucose checks and sliding scale insulin #DVT ppx: Lovenox subcu Madonna Mccoy MD Time spent in the patient's overall evaluation,decision-making process, review of diagnostic data, adjustment of management, discussion with other providers, nursing nursing and ancillary staff involved in patient's care documentation, 37 minutes Charges/Coding Visit Charges Inpatient E&M: 03709 Subs Hosp L2
[2024-03-21 21:30] LABS: Bedside Glucose 163 mg/dL (74-106)
[2024-03-21 22:31] VITALS: BP 150/76; PULSE 89; RESP 16; TEMP 36.9; O2SAT 96
[2024-03-21] MEDS: Atorvastatin Calcium 10 MG Tablet 5 MG PO (22:36)
[2024-03-22 01:23] LABS: Bedside Glucose 233 mg/dL (74-106)
[2024-03-22 03:44] VITALS: BMI 34.7
[2024-03-22 04:30] VITALS: BP 150/77; PULSE 83; RESP 16; TEMP 36.8; O2SAT 100
[2024-03-22] MEDS: Insulin Lispro 100 UNIT/ML INSULN.PEN SC ×2 (06:01→11:23)
[2024-03-22 06:32] LABS: Bedside Glucose 168 mg/dL (74-106)
[2024-03-22 06:33] LABS: Absolute Lymphocyte Count 0.59 X10^3/uL (0.83-4.51); Absolute Neutrophil Count 1.5 X10^3/uL (2.0-7.7); Basophil# 0.02 X10^3/uL; Basophil% 0.8 % (0-1); Eosinophil# 0.07 X10^3/uL; Eosinophils% 2.7 % (0-5); Hemoglobin 8.2 g/dL (13.0-16.5); Lymphocyte # 0.59 X10^3/ul (0.83-4.51); Lymphocyte % 22.4 % (19-41); Mean Corp Hgb Conc 32.8 g/dL (32-36); Mean Corpuscular Hgb 27.8 pg (27.0-32.0); Mean Corpuscular Volume 84.7 fL (80-94); Mean Platelet Vol. 9.4 fl (6.2-12.0); Monocyte# 0.42 X10^3/uL; NRBC Flagged by Analyzer 0 % (0-5); Neutrophil # 1.52 X10^3/uL (2.7-7.7); Neutrophil % 57.7 % (47-70); POSITIVE COUNT YES; POSITIVE DIFFERENTIAL YES; Platelet Count 91 K/mm3 (150-450); RBC Distribution Width CV 13.6 % (11.6-14.6); RBC Distribution Width SD 42.3 fl (35.1-43.9); Red Blood Count 2.95 M/mm3 (4.6-6.2); White Blood Count 2.6 K/mm3 (4.4-11.0)
[2024-03-22 06:35] LABS: Differential Indicated SCAN CRITERIA MET
[2024-03-22 07:08] LABS: Anion Gap 7 (5-15); BUN 36 mg/dL (7-18); BUN/Creat Ratio 27.1 RATIO (10-20); Calcium,Total 8.4 mg/dL (8.5-10.1); Chloride 105 mmol/L (98-107); Creatinine, Serum 1.33 mg/dL (0.70-1.30); EST Glomerular Filtration Rate 56 mL/min (>60); Est Glom Filt Rate - Afr Amer 68 mL/min (>60); Estimated Creatinine Clearance 64.12 ml/min; Glucose 182 mg/dL (74-106); Potassium 3.8 mmol/L (3.5-5.1); Sodium Level 134 mmol/L (136-145)
[2024-03-22 08:14] LABS: Platelet Estimate MKD DEC (ADEQ)
[2024-03-22 09:33] VITALS: BP 142/66; PULSE 79; RESP 14; TEMP 36.8; O2SAT 99
[2024-03-22] MEDS: Fluticasone 0.05% 1 SPRAY NASAL.SRY 2 SPRAY NASAL (09:35)
[2024-03-22] MEDS: Ertapenem Sod 1 GM in 0.9% Normal Saline (50mL MB+) 50 ML IV (09:35)
[2024-03-22] MEDS: Ferrous Sulfate 325 MG Tablet PO (09:36)
[2024-03-22] MEDS: Pantoprazole Sodium 20 MG Tablet PO (09:36)
[2024-03-22] MEDS: Tamsulosin HCl 0.4 MG Capsule PO (09:36)
[2024-03-22] MEDS: amLODIPine 10 MG Tablet PO (09:37)
[2024-03-22] MEDS: Atenolol 50 MG Tablet PO (09:37)
[2024-03-22] MEDS: Potassium Chloride Oral Tablet 20 MEQ 40 MEQ PO (09:37)
[2024-03-22 10:09] LABS: PSA, Total 2.6 ng/mL (0.0-4.0)
--- NOTE | 2024-03-22 10:47 | PCM.DC ---
Discharge Instructions Diet Discharge Diet: Carb Control Diet Activity Discharge Activity: Return to Normal Activity Follow Up Care Test Results: Test results from this visit will be discussed in further detail at your follow-up appointment, if applicable. Discharge Plan Admission Admit Date/Time: 03/19/24 01:33 Primary Reason for Your Visit: Urinary tract infection and urinary retension Attending Provider: Madonna Mccoy Primary Care Provider: Pati Amaya Consulting Providers: Antonia Marquis; Ignacio Montes De Oca; Anthony Kent Instructions Patient Instructions: Indwelling Urinary Catheter Dc, Leg Bag Care Dc, ED Biswas Catheter, Care Additional Instructions / Restrictions: DISCHARGE INSTRUCTIONS PLEASE READ *Please take this with you to your next doctors appointment* -He will take Bactrim twice daily upon discharge, [email or web address] -Due to slightly low sodium your hydrochlorothiazide has been held, please discuss with your prescribing physician -If you are unable to follow with your current urologist please contact Dr. Costa's office to schedule an appointment -You will be discharged with a biswas catheter, please discuss this with Urology upon discharge -Your blood counts were low and it appears they have been in the past as well. Please continue to follow with Dr. Larkin for your blood counts -Please call your primary care provider's office upon discharge to schedule a hospital follow up within 1 week. -For any concerning signs or symptoms please call 911 or proceed to the nearest emergency department Discharge Orders/Prescriptions Prescriptions: New sulfamethoxazole-trimethoprim [Bactrim DS] 800-160 mg tablet 1 tab PO BID Qty: 7 0RF Continued atenolol 50 mg tablet 50 mg PO DAILY cranberry extract 200 mg capsule 200 mg PO DAILY Rx Instructions: administer with a meal multivitamin Tablet 1 tab PO DAILY Ozempic 1 mg/dose (4 mg/3 mL) pen injector 1 mg subcut QWEEK dapagliflozin propanediol [Farxiga] 5 mg tablet 5 mg PO DAILY tamsulosin [Flomax] 0.4 mg capsule 0.4 mg PO DAILY ferrous sulfate 325 mg (65 mg iron) tablet,delayed release (DR/EC) 325 mg PO DAILY pantoprazole 20 mg tablet,delayed release (DR/EC) 20 mg PO DAILY mecobalamin (vitamin B12) 1,000 mcg tablet,chewable 5,000 mcg PO DAILY simvastatin 10 MG tablet 10 mg PO DAILY amlodipine 10 mg tablet 10 mg PO DAILY Discontinued hydrochlorothiazide 25 mg tablet 25 mg PO DAILY doxycycline monohydrate 40 mg capsule,IR - delay rel,biphase 20 mg PO DAILY Referrals / Follow Up: Braydon Costa MD [Med Staff - Active Staff] - (If you are unable to follow with your current urologist please contact Dr. Costa's office to schedule an appointment) Pati Amaya DO [Primary Care Provider] - Within 1 Week Disposition Disposition (needs filled in before D/C Order can be placed): Home, Self Care
--- NOTE | 2024-03-22 10:51 | PCM.PN.ID ---
Physical Exam Narrative Feeling well, no fever, no n/v/d. Const alert and no apparent distress General Appearance: cooperative Resp normal air movement and clear to auscultation bilaterally Cardio regular rate and regular rhythm GI soft to palpation, non-tender and non-distended Extremity General Extremity: Negative for edema Skin no rashes or lesions noted ID ID: Route of nutrition/ use of supplements: [] Nutritional Intake: [] IV Site: [] Boucher Catheter: [] Assessment & Plan Assessment/Plan (1) UTI (urinary tract infection): PLAN: ESBL ecoli uti with SWAPNA due to urinary retention s/p L knee replacement last week. 03/21 changed to ertapenem. SWAPNA much improved. Ok for home with 4 more days po bactrim DS bid, will write rx. Will follow, d/w Dr. Mccoy
[2024-03-22 11:43] LABS: Bedside Glucose 266 mg/dL (74-106)
[2024-03-22 12:00] VITALS: BP 142/66; PULSE 79; RESP 14; TEMP 36.8; O2SAT 99
--- NOTE | 2024-03-22 12:03 | CASEMGMT ---
Social Work Pt's family brought in LW/POA, Marifer Gonzales is listed as pt's healthcare POA. BACILIO Lind
--- NOTE | 2024-03-22 13:41 | DS.PCM_ITS ---
Providers Date of Admission: 03/19/24 Date of Discharge: 03/22/24 Primary Care Physician: Dr. Pati Amaya, Consultations 03/20/24 12:35 Consult: Infectious Disease Routine Consulting Provider: Anthony Kent Reason for Consult: Complicated UTI with ESBL E. coli EMERGENT Consult: No MD Notified: Yes Date Notified: 03/21/24 Time Notified: 07:38 Method of Notification: Text Reason For Visit: URINARY RETENTION, ACUTE UTI Diagnosis Discharge Diagnosis (1) UTI (urinary tract infection): Status: Acute Code(s): N39.0 - Urinary tract infection, site not specified Plan # Acute urinary retention likely secondary to BPH with obstruction and UTI 2/2 ESBL ECOLI # Recent left knee replacement # SWAPNA on CKD stage III unclear subtype-swapna resolved #pancytopenia #HTN #Type 2 diabetes mellitus Medications at Discharge Home Medications simvastatin 10 mg tablet 10 mg PO DAILY cholesterol 03/13/17 amlodipine 10 mg tablet 10 mg PO DAILY blood pressure 02/09/24 dapagliflozin propanediol 5 mg tablet (Farxiga) 5 mg PO DAILY diabetes 02/09/24 ferrous sulfate 325 mg (65 mg iron) tablet,delayed release 325 mg PO DAILY iron 02/09/24 pantoprazole 20 mg tablet,delayed release 20 mg PO DAILY reflux 02/09/24 semaglutide 1 mg/dose (4 mg/3 mL) subcutaneous pen injector (Ozempic) 1 mg subcut QWEEK diabetes 02/09/24 tamsulosin 0.4 mg capsule (Flomax) 0.4 mg PO DAILY prost 02/09/24 atenolol 50 mg tablet 50 mg PO DAILY blood pressure 02/23/24 cranberry extract 200 mg capsule 200 mg PO DAILY supplement 02/23/24 mecobalamin (vitamin B12) 1,000 mcg chewable tablet 5,000 mcg PO DAILY vitamin 02/23/24 multivitamin 1 tab PO DAILY vitamin 02/23/24 sulfamethoxazole 800 mg-trimethoprim 160 mg tablet (Bactrim DS) 1 tab PO BID #7 tabs 03/22/24 Hospital Course Summary of Care Provided Minutes Spent on Discharge: 32 Hospital Course: 68-year-old male history of CKD stage III, BPH, hypertension, GERD, Gaubert syndrome following with oncology hematology, UTIs who presented to [facility] 03/19/2024 with acute urinary retention. He had recent total left knee surgery 03/15/[address] Sanchez at [facility] and since then he had onset of dysuria and difficulty with urination. Patient had elevated temperature at home prompting ED visit and he was found to retain urine, Biswas catheter placed with significant output and patient found to have ESBL E. coli UTI. Patient improved on IV ertapenem and ID was consulted, given patient's continued improvement in renal function it was felt reasonable to discharge him on p.o. Bactrim. Given recurrent UTIs and BPH with obstruction patient will be discharged with Biswas catheter and advised to follow closely with urology. Discussed plan of care and patient verbalized understanding, also discussed his low blood counts and that this appears to be chronic and advised that he follow- up with his hematology Dr. Discharge instructions as followed: -He will take Bactrim twice daily upon discharge, [facility] -Due to slightly low sodium your hydrochlorothiazide has been held, please discuss with your prescribing physician -If you are unable to follow with your current urologist please contact Dr. Costa's office to schedule an appointment -You will be discharged with a biswas catheter, please discuss this with Urology upon discharge -Your blood counts were low and it appears they have been in the past as well. Please continue to follow with Dr. Larkin for your blood counts -Please call your primary care provider's office upon discharge to schedule a hospital follow up within 1 week. -For any concerning signs or symptoms please call 911 or proceed to the nearest emergency department Physical Exam Narrative General: Alert, oriented, no apparent distress HEENT: Atraumatic, normocephalic Eyes: Anicteric, normal conjunctiva, extraocular movements grossly intact Neck: Supple Respiratory: Clear to auscultation bilaterally, normal respiratory effort Cardiovascular: Regular rate and rhythm GI: Soft, nontender, nondistended Extremities: No edema Musculoskeletal: Moving all extremities, left extremity status post surgery Neuro: No overt focal neurological deficits Skin: No rashes appreciated Psych: Cooperative Weight / BMI Weight Weight: 109.8 kg Body Mass Index (BMI) 34.7 ABG / Lab / Microbiology Data 03/22/24 06:24 03/22/24 06:24 Laboratory: Laboratory Results - last 24 hr 03/20/24 08:00: Total PSA 2.6 03/21/24 15:20: WBC 3.2 L, RBC 3.28 L, Hgb 9.3 L, Hct 27.8 L, MCV 84.8, MCH 28.4, MCHC 33.5, RDW Std Deviation 42.2, RDW Coeff of Juan Carlos 13.5, Plt Count 109 L, MPV 9.5, Immature Gran % (Auto) 0.300, Neut % (Auto) 63.7, Lymph % (Auto) 17.1 L , [place] % (Auto) 16.1 H, Eos % (Auto) 2.2, Baso % (Auto) 0.6, Absolute Neuts (auto) 2.0, Absolute Lymphs (auto) 0.54 L, Nucleated RBC % 0, Differential Comment SEE COMMENT, Platelet Estimate SLT DEC, RBC Morphology N CHROM, Anisocytosis RARE 03/21/24 16:44: POC Glucose 163 H 03/21/24 22:35: POC Glucose 233 H 03/22/24 05:57: POC Glucose 168 H 03/22/24 06:24: WBC 2.6 L, RBC 2.95 L, Hgb 8.2 L, Hct 25.0 L, MCV 84.7, MCH 27.8, MCHC 32.8, RDW Std Deviation 42.3, RDW Coeff of Juan Carlos 13.6, Plt Count 91 L, MPV 9.4, Immature Gran % (Auto) 0.400, Neut % (Auto) 57.7, Lymph % (Auto) 22.4, [place] % (Auto) 16.0 H, Eos % (Auto) 2.7, Baso % (Auto) 0.8, Absolute Neuts (auto) 1.5 L, Absolute Lymphs (auto) 0.59 L, Nucleated RBC % 0, Differential Comment , Diff Path Review May foll, Platelet Estimate MKD DEC, Sodium 134 L, Potassium 3.8, Chloride 105, Carbon Dioxide 22.0, Anion Gap 7, BUN 36 H, Creatinine 1.33 H , Estim Creat Clear Calc 64.12, Est GFR (MDRD) Af Amer 68, Est GFR (MDRD) Non-Af 56 L, BUN/Creatinine Ratio 27.1 H, Glucose 182 H, Calcium 8.4 L 03/22/24 11:21: POC Glucose 266 H Microbiology: Microbiology 03/18/24 23:30 Urine, Clean Catch Urine Culture - Final ESBL Escherichia coli 03/19/24 00:14 Stool Stool Occult Blood (CURTIS) - Final D/C Instructions Discharge Diet: Carb Control Diet Meaningful Use Info Meaningful Use Meaningful Use Diagnoses (Choose all that apply): None applicable Ischemic Stroke Statin Dosing Therapy Reference: STATIN DOSE THERAPY REFERENCE: * Patients > 75 years receive moderate or high dose statin therapy. * Patients 75 years or YOUNGER should receive HIGH intensity statin dose unless contraindicated. You will be required to document reason for non-treatment if statin daily dose does not meet guidelines. HIGH DOSE STATIN THERAPY DAILY Atorvastatin > than or = to 40 mg Rosuvastatin > than or = to 20 mg Amlodipine + Atorvastatin > than or = to 2.5/40 mg Ezetimibe + Simvastatin 10/80 mg Simvastatin 80mg Discharge Plan Admission Admit Date/Time: 03/19/24 01:33 Primary Reason for Your Visit: Urinary tract infection and urinary retension Attending Provider: Madonna Mccoy Primary Care Provider: Pati Amaya Consulting Providers: Antonia Marquis; Ignacio Montes De Oca; Anthony Kent Instructions Patient Instructions: Indwelling Urinary Catheter Dc, Leg Bag Care Dc, ED Biswas Catheter, Care Additional Instructions / Restrictions: DISCHARGE INSTRUCTIONS PLEASE READ *Please take this with you to your next doctors appointment* -He will take Bactrim twice daily upon discharge, this has been sent to [facility] pharmacy -Due to slightly low sodium your hydrochlorothiazide has been held, please discuss with your prescribing physician -If you are unable to follow with your current urologist please contact Dr. Costa's office to schedule an appointment -You will be discharged with a biswas catheter, please discuss this with Urology upon discharge -Your blood counts were low and it appears they have been in the past as well. Please continue to follow with Dr. Larkin for your blood counts -Please call your primary care provider's office upon discharge to schedule a hospital follow up within 1 week. -For any concerning signs or symptoms please call 911 or proceed to the nearest emergency department Discharge Orders/Prescriptions Prescriptions: New sulfamethoxazole-trimethoprim [Bactrim DS] 800-160 mg tablet 1 tab PO BID Qty: 7 0RF Continued atenolol 50 mg tablet 50 mg PO DAILY cranberry extract 200 mg capsule 200 mg PO DAILY Rx Instructions: administer with a meal multivitamin Tablet 1 tab PO DAILY Ozempic 1 mg/dose (4 mg/3 mL) pen injector 1 mg subcut QWEEK dapagliflozin propanediol [Farxiga] 5 mg tablet 5 mg PO DAILY tamsulosin [Flomax] 0.4 mg capsule 0.4 mg PO DAILY ferrous sulfate 325 mg (65 mg iron) tablet,delayed release (DR/EC) 325 mg PO DAILY pantoprazole 20 mg tablet,delayed release (DR/EC) 20 mg PO DAILY mecobalamin (vitamin B12) 1,000 mcg tablet,chewable 5,000 mcg PO DAILY simvastatin 10 MG tablet 10 mg PO DAILY amlodipine 10 mg tablet 10 mg PO DAILY Discontinued hydrochlorothiazide 25 mg tablet 25 mg PO DAILY doxycycline monohydrate 40 mg capsule,IR - delay rel,biphase 20 mg PO DAILY Referrals / Follow Up: Braydon Costa MD [Med Staff - Active Staff] - (If you are unable to follow with your current urologist please contact Dr. Costa's office to schedule an appointment) Pati Amaya DO [Primary Care Provider] - 03/25/24 10:00 am (Appointment will be with the in office [facility]IST[facility] C[facility] MANAGER Laura Mcdonald. ) Disposition Disposition (needs filled in before D/C Order can be placed): Home, Self Care Charges/Coding Visit Charges Inpatient E&M: 13357 Disch Hosp >30min
--- NOTE | 2024-03-22 13:49 | CASEMGMT ---
Discharge summary noted, RN CM into pt room. Pt states no additional questions or concerns at this time, denies any DC needs at this time.
--- NOTE | 2024-03-22 14:14 | PHA.DC_ITS ---
Pharmacy [facility] has performed discharge medication reconciliation and counseling for this patient. The patient's discharge medication list was reviewed for discrepancies and discrepancies were resolved. The patient was counseled on the following discharge medications and changes in medications for homegoing were reviewed. The Reason for Use, instructions for use, and potential side effects were reviewed for all new medications. The patient's questions regarding all of their medications were answered. 1. Sulfamethoxazole/trimethoprim DS PO BID x 7 doses The patient was able to verbally demonstrate an understanding of their discharge medications. The patient was counselled on new medication by director pharmacy services Nadeem. Medications at Discharge Home Medications simvastatin 10 mg tablet 10 mg PO DAILY cholesterol 03/13/17 amlodipine 10 mg tablet 10 mg PO DAILY blood pressure 02/09/24 dapagliflozin propanediol 5 mg tablet (Farxiga) 5 mg PO DAILY diabetes 02/09/24 ferrous sulfate 325 mg (65 mg iron) tablet,delayed release 325 mg PO DAILY iron 02/09/24 pantoprazole 20 mg tablet,delayed release 20 mg PO DAILY reflux 02/09/24 semaglutide 1 mg/dose (4 mg/3 mL) subcutaneous pen injector (Ozempic) 1 mg subcut QWEEK diabetes 02/09/24 tamsulosin 0.4 mg capsule (Flomax) 0.4 mg PO DAILY prost 02/09/24 atenolol 50 mg tablet 50 mg PO DAILY blood pressure 02/23/24 cranberry extract 200 mg capsule 200 mg PO DAILY supplement 02/23/24 mecobalamin (vitamin B12) 1,000 mcg chewable tablet 5,000 mcg PO DAILY vitamin 02/23/24 multivitamin 1 tab PO DAILY vitamin 02/23/24 sulfamethoxazole 800 mg-trimethoprim 160 mg tablet (Bactrim DS) 1 tab PO BID #7 tabs 03/22/24
[2024-03-23 11:50] LABS: Pathologist Review Reviewed
== END 2024-03-22 15:51 | disposition home or self-care (01) | DRG 690 ==
LOC: ED 22:34 → PCU 03-19 01:46
PROVIDERS: Hospitalist; Admitting Provider Family Medicine; Emergency Provider Student in an Organized Health Care Education/Training Program; PCP Internal Medicine; Visit Provider Internal Medicine
DX: N39.0 Urinary tract infection, site not specified (principal); D61.818 Other pancytopenia; N17.9 Acute kidney failure, unspecified; E87.1 Hypo-osmolality and hyponatremia; D62 Acute posthemorrhagic anemia; D69.6 Thrombocytopenia, unspecified; E11.22 Type 2 diabetes mellitus with diabetic chronic kidney disease; N18.30 Chronic kidney disease, stage 3 unspecified; Z79.4 Long term (current) use of insulin; I12.9 Hypertensive chronic kidney disease with stage 1 through stage 4 chronic kidney disease, or unspecified chronic kidney disease; D50.9 Iron deficiency anemia, unspecified; E86.0 Dehydration; E80.4 Gilbert syndrome; E87.8 Other disorders of electrolyte and fluid balance, not elsewhere classified; E87.6 Hypokalemia; K21.9 Gastro-esophageal reflux disease without esophagitis; E78.5 Hyperlipidemia, unspecified; K59.00 Constipation, unspecified; E66.9 Obesity, unspecified; Z87.891 Personal history of nicotine dependence; R33.9 Retention of urine, unspecified; B96.20 Unspecified Escherichia coli [E. coli] as the cause of diseases classified elsewhere; Z79.84 Long term (current) use of oral hypoglycemic drugs; Z68.34 Body mass index [BMI] 34.0-34.9, adult; N40.1 Benign prostatic hyperplasia with lower urinary tract symptoms; N13.8 Other obstructive and reflux uropathy; Z96.652 Presence of left artificial knee joint
CPT/HCPCS: 36415; 80048; 80053; 81001; 82274; 82728; 82962; 83540; 83550; 83735; 84153; 85025; 85027; 87077; 87086; 87088; 87186; 94668; 97163; 97165; 97530; 97535; 99285; J7030; J7050; A4216

== ENCOUNTER → 2024-05-27 | Outpatient (CLI) | payer MEDICARE, OTHER, SELFPAY ==
[2024-05-27 15:30] LABS: Anion Gap 8 (5-15); BUN 41 mg/dL (7-18); BUN/Creat Ratio 22.7 RATIO (10-20); Calcium,Total 10.5 mg/dL (8.5-10.1); Chloride 103 mmol/L (98-107); Creatinine, Serum 1.81 mg/dL (0.70-1.30); EST Glomerular Filtration Rate 40 mL/min (>60); Est Glom Filt Rate - Afr Amer 48 mL/min (>60); Glucose 166 mg/dL (74-106); Potassium 3.4 mmol/L (3.5-5.1); Sodium Level 139 mmol/L (136-145)
== END | disposition home or self-care (01) ==
LOC: MTLAB 13:16
PROVIDERS: PCP Internal Medicine; Referring Provider Specialist; Visit Provider Specialist
DX: Z01.818 Encounter for other preprocedural examination (principal)
CPT/HCPCS: 36415; 80048

== ENCOUNTER → 2024-06-20 | Outpatient (CLI) | payer MEDICARE, OTHER, SELFPAY ==
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
== END | disposition home or self-care (01) ==
LOC: CT 07:42
PROVIDERS: PCP Internal Medicine; Referring Provider Specialist; Visit Provider Specialist
DX: M21.161 Varus deformity, not elsewhere classified, right knee (principal); M17.0 Bilateral primary osteoarthritis of knee
CPT/HCPCS: 73700

== ENCOUNTER → 2024-06-23 | Outpatient (CLI) | payer MEDICARE, OTHER, SELFPAY ==
[2024-06-23 15:52] LABS: Hemoglobin A1c 7.5 % (3.8-5.6)
== END | disposition home or self-care (01) ==
PROVIDERS: PCP Internal Medicine; Referring Provider Physician Assistant Surgical; Visit Provider Physician Assistant Surgical
DX: T84.82XA Fibrosis due to internal orthopedic prosthetic devices, implants and grafts, initial encounter (principal); E11.9 Type 2 diabetes mellitus without complications
CPT/HCPCS: 36415; 83036

== ENCOUNTER → 2024-06-30 | Outpatient (CLI) | payer MEDICARE, OTHER, SELFPAY ==
--- NOTE | 2024-06-30 06:54 | ECHOD_ITS ---
Reason For Study: ABNORMAL EKG Procedure This was a 2D Doppler, Color Flow transthoracic echocardiogram. Exam performed in department. Left Ventricle Normal LV size. Mild concentric left ventricular hypertrophy. Left ventricular systolic function is normal. The left ventricular ejection fraction is 55 %. No regional wall motion abnormalities noted. Right Ventricle Normal RV size. Normal systolic function. Atria Normal left atrium. Normal right atrium. Bubble contrast study negative for right to left interatrial shunt. Mitral Valve Normal mitral valve. Mild (1+) eccentric mitral valve insufficiency. Tricuspid Valve Normal tricuspid valve. Mild tricuspid valve insufficiency. Pulmonary artery systolic pressure is 25 mmHg. Aortic Valve Trisinus/trileaflet aortic valve. Mild (1+) aortic valve insufficiency. Pulmonic Valve Normal pulmonic valve. Great Vessels Normal aortic root. The pulmonary artery is normal size. Normal inferior vena cava. Pericardium/Pleural No pericardial effusion. Medication Performed a rapid injection of agitated mix of 9 cc saline and 1cc air to assess for atrial septal defect. MMode/2D Measurements & Calculations LVIDd: 5.4 cm IVSd: 1.5 cm LVOT diam: 2.4 cm LVIDs: 3.6 cm LVPWd: 1.2 cm RVDd: 4.8 cm FS: 33.3 % LVOT area: 4.5 cm2 asc Aorta Diam: 4.0 cm LAV(MOD-bp): 73.4 ml LVAd ap4: 37.2 cm2 LAV(MOD-bp) Indexed: 33.4 ml/m2 LVLd ap4: 9.3 cm LAV(MOD-sp2): 86.7 ml EDV(MOD-sp4): 121.8 ml LAV(MOD-sp4): 60.4 ml EDV(sp4-el): 126.7 ml LVAs ap4: 21.6 cm2 LVLs ap4: 7.6 cm ESV(MOD-sp4): 52.4 ml ESV(sp4-el): 52.0 ml EF(MOD-sp4): 57.0 % EF(sp4-el): 59.0 % LVAd ap2: 38.2 cm2 SV(MOD-sp4): 69.4 ml SV(MOD-sp2): 77.6 ml LVLd ap2: 9.5 cm EDV(MOD-sp2): 127.9 ml EDV(sp2-el): 129.9 ml LVAs ap2: 20.5 cm2 LVLs ap2: 7.9 cm ESV(MOD-sp2): 50.3 ml ESV(sp2-el): 45.2 ml EF(MOD-sp2): 60.7 % SV(sp4-el): 74.7 ml Ao sinus diam: 3.[address] Junction: 3.5 cm LA dimension(2D): 4.4 cm LA A4 area: 21.0 cm2 RA A4 area: 18.7 cm2 TAPSE: 2.0 cm Time Measurements MV dec time: 0.31 sec Doppler Measurements & Calculations MV E max franco: 47.3 cm/sec Lat Peak E' Franco: 10.1 cm/sec Med Peak E' Franco: 6.2 cm/sec MV A max franco: 80.8 cm/sec E/E' lat: 4.7 E/E' med: 7.7 MV E/A: 0.59 MV dec slope: 150.8 cm/sec2 Ao V2 max: 128.7 cm/sec AI max franco: 457.3 cm/sec Ao max P.6 mmHg AI max P.6 mmHg Ao V2 mean: 84.4 cm/sec AI dec slope: 201.1 cm/sec2 Ao mean P.3 mmHg AI P1/2t: 665.9 msec Ao V2 VTI: 28.2 cm AV (velocity ratio): 0.74 DEEPAK(I,D): 3.3 cm2 DEEPAK(V,D): 3.3 cm2 LV V1 max: 94.9 cm/sec SV(LVOT): 92.8 ml PA V2 max: 151.4 cm/sec LV V1 max P.6 mmHg PA max PG (full): 6.5 mmHg LV V1 mean P.1 mmHg LV V1 mean: 67.6 cm/sec LV V1 VTI: 20.9 cm PI end-d franco: 88.1 cm/sec TR max franco: 232.5 cm/sec TR max P.6 mmHg ECHO/Echo Complete Interpretation Summary Normal LV size. Left ventricular systolic function is normal. The left ventricular ejection fraction is 55 %. Bubble contrast study negative for right to left interatrial shunt. Mild concentric left ventricular hypertrophy. Ordering Physician: Pati Amaya Referring Physician: Pati Amaya Performed By: Preethi Faria RDCS
--- NOTE | 2024-06-30 13:31 | STRESSREP ---
Stress Test Report Pharmacologic myocardial perfusion stress test. 69-year-old man for preop evaluation Resting EKG demonstrates sinus rhythm with a rate of 62 bpm. Resting blood pressure is 164/86 mmHg. 0.4 mg of regadenoson was infused per usual protocol followed by rapid intravenous saline flush injection. Continuous EKG monitoring was performed. The maximum heart rate was 86 bpm which was 57% of max impacted heart rate the maximum workload was 1 metabolic equivalent. At rest there were no ST or T wave changes noted to suggest ischemia and at peak infusion nonspecific ST changes were noted which did not meet the criteria for ischemia. No clinical angina is noted. The final blood pressure was 150/80 mmHg. Myocardial perfusion protocol. 9.9 mCi of technetium 99m sestamibi was injected at rest. 0.4 mg of regadenoson was infused per usual protocol. At peak infusion 33 mCi of technetium 99m sestamibi was injected stress images were obtained stress and rest images were reconstructed and compared in the short axis vertical long and horizontal long axis. Gated images were also obtained. Perfusion SPECT analysis: Review of the stress images demonstrate normal uptake of tracer noted in all areas of the myocardium. The resting images similar demonstrated normal uptake of tracer noted in all areas of the myocardium. No areas of reversibility are noted to suggest ischemia and no previous infarct is noted. Gated SPECT analysis: The gated ejection fraction is 57%. Conclusion: Normal pharmacologic myocardial perfusion stress test. Preserved ejection fraction.
== END | disposition home or self-care (01) ==
LOC: CVS 06:51
PROVIDERS: PCP Internal Medicine; Referring Provider Internal Medicine; Visit Provider Internal Medicine
DX: R94.31 Abnormal electrocardiogram [ECG] [EKG] (principal)
CPT/HCPCS: 78452; 93017; 93306; A9500; A4216; J2785

== ENCOUNTER 2024-07-04 06:56 | Observation (INO) | payer MEDICARE, OTHER, SELFPAY ==
--- NOTE | 2024-06-17 07:20 | EKG12_ITS ---
Test Reason : PRE OP Blood Pressure : / mmHG Vent. Rate : 081 BPM Atrial Rate : 081 BPM P-R Int : 192 ms QRS Dur : 116 ms QT Int : 398 ms P-R-T Axes : 040 -37 046 degrees QTc Int : 462 ms Sinus rhythm with occasional Premature ventricular complexes Left axis deviation Inferior infarct , age undetermined Abnormal ECG Confirmed by DIAMOND BLANDON, VIKA ([id number]), state editor CHELA PATEL ([id number]) on 06/17/2024 1:17:58 PM Referred By: Eduar Sanchez Confirmed By:VIKA FIELDS MD
[2024-06-17 07:46] LABS: Absolute Lymphocyte Count 1.88 X10^3/uL (0.83-4.51); Absolute Neutrophil Count 4.8 X10^3/uL (2.0-7.7); Basophil# 0.03 X10^3/uL; Basophil% 0.4 % (0-1); Eosinophil# 0.33 X10^3/uL; Eosinophils% 4.2 % (0-5); Hematocrit 42.8 % (40-54); Hemoglobin 14.6 g/dL (13.0-16.5); Lymphocyte # 1.88 X10^3/ul (0.83-4.51); Lymphocyte % 24.1 % (19-41); Mean Corp Hgb Conc 34.1 g/dL (32-36); Mean Corpuscular Hgb 27.8 pg (27.0-32.0); Mean Corpuscular Volume 81.4 fL (80-94); Mean Platelet Vol. 9.4 fl (6.2-12.0); Monocyte# 0.69 X10^3/uL; Monocyte% 8.8 % (0-10); NRBC Flagged by Analyzer 0 % (0-5); Neutrophil # 4.83 X10^3/uL (2.7-7.7); Neutrophil % 61.9 % (47-70); Platelet Count 126 K/mm3 (150-450); RBC Distribution Width CV 14.6 % (11.6-14.6); RBC Distribution Width SD 42.7 fl (35.1-43.9); Red Blood Count 5.26 M/mm3 (4.6-6.2); White Blood Count 7.8 K/mm3 (4.4-11.0)
[2024-06-17 08:32] LABS: Albumin, Serum 3.8 g/dL (3.2-5.0); Anion Gap 8 (5-15); BUN 47 mg/dL (7-18); BUN/Creat Ratio 27.3 RATIO (10-20); Calcium,Total 9.4 mg/dL (8.5-10.1); Chloride 103 mmol/L (98-107); Creatinine, Serum 1.72 mg/dL (0.70-1.30); EST Glomerular Filtration Rate 42 mL/min (>60); Est Glom Filt Rate - Afr Amer 51 mL/min (>60); Glucose 251 mg/dL (74-106); Potassium 3.8 mmol/L (3.5-5.1); Sodium Level 135 mmol/L (136-145)
[2024-06-17 08:36] LABS: Magnesium 2.2 mg/dL (1.6-2.6)
[2024-06-17 09:04] LABS: Hemoglobin A1c 7.6 % (3.8-5.6)
--- NOTE | 2024-06-24 13:12 | HP.PCM_ITS ---
History and Physical History and Physical Patient Name: Taj Gonzales : 1955From:? RAISA YBARRA PA-C DATE OF PRE-OPERATIVE EXAM: 06/24/2024 DATE OF SURGERY:? 07/04/2024 SCHEDULED PROCEDURE:? Robotic-assisted right total knee arthroplasty HISTORY OF PRESENT ILLNESS: Preoperative history and physical exam was performed on June 24, 2024.? This is a 68-year-old male who has had ongoing bilateral knee pain for many years.? Patient recently on March 15, 2024 underwent a left total knee arthroplasty by Dr. Eduar Sanchez.? This was followed by manipulation under anesthesia on June 09, 2024.? Patient has continued to have pain with his right knee.? Pain is constant and sharp.? Pain is increased with going up and down stairs, sitting, and walking.? He has difficulty with leisure activities secondary to the pain.? Patient gets grinding and catching sensation with the right knee.? Pain does awaken him at night.? He has difficulty putting on his socks and shoes.? He has attempted Celebrex in the past but has stopped due to the primary care physician and chronic kidney disease.? He has had previous corticosteroid injections which were temporarily helpful.? He has tried knee braces with minimal relief.? He has attempted cane for ambulatory assistance.? Patient has had previous clearance from Dr. Larkin.? patient's primary care physician Dr. Rivera has ordered stress test secondary to the EKG.? Stress tests will be obtained on June 30, 2024.? Patient denies past history of DVT or pulmonary embolism.? No recent chest pain, shunt breath, fevers chills or recent infections.? Patient has medical history pertinent for hypertension, type 2 diabetes mellitus in which his most recent A1c 7.5, sleep apnea, hypercholesterolemia, splenomegaly, thrombocytopenia, chronic kidney disease, gastroesophageal reflux disease, and benign prostatic hyperplasia.? Patient A1c has been elevated most likely secondary to recent corticosteroid use after his manipulation under anesthesia.? Program Assistant also recommends proceeding as long as platelets are greater than 100,000. REVIEW OF SYSTEMS: Review Of Systems: Constitutional: Denies change in appetite, fever and weight change. Cardiovasular: Denies chest pain, heart murmur and irregular heartbeat. Respiratory: Denies cough, pneumonia, shortness of breath, tuberculosis and wheezing. Gastrointestinal: Reports constipation and heartburn, but denies diarrhea, nausea, rectal itching, bloody stools and vomiting. Musculoskeletal: Reports gait disturbance, pain, trouble walking and weakness, but denies leg swelling. Skin: Denies Raynaud's, history of shingles and tattoo. Neurological: Denies ambulatory dysfunction, dizziness, numbness/tingling and tremor. Psychiatric: Denies anxiety, insomnia and stress. Hematologic/Lymphatic: Reports anemia, but denies bleeding/bruising tendency and past transfusion. Reviewed, no changes. PAST MEDICAL HISTORY: Advance Care Plan: No Advance Directives Effective Date: 09/24/2023 Past Medical History: Medical Problems: High Blood Pressure, Diabetes, Sleep Apnea, Hypercholesterolemia, Splenomegaly, Thrombocytopenia Kidney Disease/Renal Failure - 3 Arthritis, Acid Reflux, Benign Prostatic Hyperplasia Accidents: None Surgical Hx: Cataracts - (2016) [facility] Gallbladder - (1999) Hernia Repair - 1965 AND 1979 Discectomy - (2004) Knee Arthroscopy LT - (2001) Knee Replacement LT - (03/15/2024) ROBOTIC ASSISTED DR. SANCHEZ AT [facility] prostate surgery Manipulation Under Anesthesia Left Knee - (06/09/2024) DR. SANCHEZ AT [facility] Anesthesia Complications: None Assistive Devices: Cpap, Glasses Reviewed and updated. SOCIAL HISTORY: Social History: Marital: .Occupation: Retired.Work Status: Retired.Hand Dominance: Right- handed. Personal Habits:? Cigarette Use: Former.Smokeless Tobacco: Never Used Smokeless Tobacco.E-Cigarette Use: Never used.Alcohol: Denies use.Drug Use: Denies Use.Enjoy Exercising: Never Exercises. Reviewed, no changes. VITALS: Ht: 70 Wt: 225lb Wt k.060 BMI: 32.3 BP: 138/84 Pulse: 69 Resp: 16 T: 97.8 T: 36.6C Pain Level: 8 O2SatR: 100 ALLERGIES: No Known Drug Allergy No Known Substance Allergies MEDICATIONS: Singulair 10 mg 1 by mouth every day, Oxycodone HCL 5 mg 1-2 tab by mouth every 6 hours, Aspirin 81 mg dose : 81 mg = 1 tab(s), oral, bidm, take 81 mg aspirin twice daily with food for 4 weeks postoperatively for dvt prophylaxis., 0 refill(s), Cefpodoxime Proxetil 200 mg must administer with a meal/food, Potassium Chloride ER 20 Meq daily, Atenolol 50 mg daily, Cranberry 200 mg administer with a meal, Ozempic (1 MG/Dose) 4 mg/3ml every week, Dapagliflozin Propanediol 5 mg daily, Ferrous Sulfate 324 (65 Fe) MG daily, Simvastatin 10 mg 1 by mouth every day, Hydrochlorothiazide 25 mg 1 by mouth every day, Tamsulosin HCL 0.4 mg 1 by mouth every day, [facility] Vitamin B12 1000 mcg daily, Vitamin D3 Ultra Strength 125 mcg (5000 Ut) daily, Multi Vitamin? take one(1) tablet daily., Amlodipine Besylate 10 mg 1 x day, Hydralazine HCL 50 mg 1 x day, Pantoprazole Sodium 20 mg daily, Farxiga 5 mg 1 by mouth every day, Iron 325 (65 Fe) MG daily PRE-OP EXAM: General appearance:NORMAL? Other: Eyes: Conjunctivae and lids: NORMAL? Pupils: ERR Ears, Nose, Mouth, and Throat: NORMAL? Other: Inspection of lips, teeth and gums: NORMAL?? Other: Neck: Examination of neck: no masses noted. Respiratory: Assessment of respiratory effort: NORMAL?? Other: ? Auscultation of lungs: clear to auscultation no wheezes, rhonchi or rales. Cardiovascular:? Auscultation of heart: regular rate and rhythm, no murmurs, gallops or rubs. PHYSICAL EXAMINATION: On exam of the right knee it is without erythema or signs of infection.? He does ambulate with a cane.? He has medial joint line tenderness.? He has moderate to large effusion right knee.? He has fixed varus alignment.? Range of motion: Lacks 5 full extension to 100 flexion.? Stable to anterior/posterior drawer exam. 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 Severe right knee osteoarthritis with varus deformity 2.? Presence of left total knee arthroplasty with recent manipulation under anesthesia 3.? Hypertension 4.? Type 2 diabetes mellitus: A1c 7.5 4.? Sleep apnea 5.? Hypercholesterolemia 6.? Splenomegaly 7.? History of Thrombocytopenia 8.? Chronic kidney disease 9.? Benign prostatic hyperplasia 10.? Gastroesophageal reflux disease 11.? Obesity with BMI 32.3 PLAN: Dr. Eduar Sanchez did discuss and review with the patient all treatment options including surgical versus nonsurgical options.? Patient does wish to proceed with the above-stated procedure.? Potential risks, benefits, and complications of the procedure were discussed in detail including but not limited to , infection, nerve and blood vessel damage, persistent pain, numbness, tingling, paresthesias, blood clot, pulmonary embolism, and requirement for possible further surgery.? The patient expressed full understanding and has no further questions for the doctor.? Patient does agree to proceed with the above-stated procedure and has signed the surgery consent form. POST-OP MEDICATION PLAN: Pain Medications:? Pain regimen will be initiated by Dr. Eduar aSnchez in the hospital.? Due to the chronic kidney disease as well as the primary care provider they do not recommend nonsteroidal anti-inflammatories.? Patient will be placed on doxycycline postoperatively due to the elevated A1c.? He was warned about risks with increased sensitivity to sunlight and should take appropriate precautions.? Also recommend probiotic.? Patient is getting preoperative stress test on June 30, 2024. DVT Prophylaxis:? Aspirin 81 mg twice daily for 4 weeks postoperatively.? Denies past history of DVT or pulmonary embolism This dictation was created using voice recognition software. Phonetic and/or grammatical errors may exist. ___? I have re-examined the patient.? There are no clinical changes since date of exam. ___? See progress notes for changes. ___? Dictated on admission Date: ? Time: Signature:
[2024-07-04] VITALS (15 sets, daily range): BP systolic 105–147; BP diastolic 65–96; PULSE 50–71; RESP 16–18; TEMP 36.3–36.9; O2SAT 96–100; BMI 33.4
[2024-07-04] MEDS: Acetaminophen 500 MG Tablet 1000 MG PO ×3 (07:05→20:20)
[2024-07-04] MEDS: Magnesium 1 GM over 15 mins IV (07:05)
[2024-07-04] MEDS: Gabapentin 600 MG Tablet PO (07:05)
[2024-07-04] MEDS: Lactated Ringers 1,000 ML 999 ML IV (07:06)
[2024-07-04] MEDS: Insulin Lispro 100 UNIT/ML INSULN.PEN SC ×4 (07:24→20:21)
--- NOTE | 2024-07-04 07:41 | PRE.ANES_ITS ---
ASA Classification* ASA Classification ASA Classification: 3 Assessment & Plan Anesthesia* Anesthesia Assessment Anesthesia Assessment: Discussed sedation and/or anesthesia options, risks, benefits, and alternatives with patient/parents/legal guardian/POA. Questions invited. The patient/parents/legal guardian/POA seems to understand and agrees to proceed with anesthesia plan. Reviewed the physical assessment, medical history, allergy history and patient home medications list prior to surgery/procedure/anesthetic and documented any changes. Performed airway and anesthesia risk assessments. Anesthesia Type Anesthesia Type: Spinal (consented for block) Anesthesia Focused Assessment* Temperature: 98 F Pulse Rate: 71 Blood Pressure: 130/81 Respiratory Rate: 16 Pulse Ox: 100 Airway Assessment Mouth opens: >3 cm Mallampati Score: II Focused Labs Anesthesia Preop lab: CBC WBC 7.8 K/mm3 (4.4-11.0) 06/17/24 07:35 RBC 5.26 M/mm3 (4.6-6.2) 06/17/24 07:35 Hgb 14.6 g/dL (13.0-16.5) 06/17/24 07:35 Hct 42.8 % (40-54) 06/17/24 07:35 Plt Count 126 K/mm3 (150-450) L 06/17/24 07:35 CHEMISTRY Potassium 3.8 mmol/L (3.5-5.1) 06/17/24 07:35 Sodium 135 mmol/L (136-145) L 06/17/24 07:35 Magnesium 2.2 mg/dL (1.6-2.6) 06/17/24 07:35 BUN 47 mg/dL (7-18) H 06/17/24 07:35 Creatinine 1.72 mg/dL (0.70-1.30) H 06/17/24 07:35 Glucose 251 mg/dL (74-106) H 06/17/24 07:35 POC Glucose 266 mg/dL (74-106) H 03/22/24 11:21 TSH 3.33 uIU/mL (0.358-3.74) 10/17/14 08:05 COAG PT 14.0 SECONDS (11.7-14.9) 03/05/24 10:45 Pre-Assessment Diagnosis/Proposed Procedure Planned Operative Procedure(s): (R) Total Knee Replacement Robotic Arm Thea Anesthesia History 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 When Was Last Pacemaker Check QUESTION #4 FULL TEXT: You/Your Family Experience fever (hyperthermia) with Anesthesia Last Oral Intake Last Oral intake: Last Oral Intake NPO since 05:45 07/04/24 06:58 Meds taken in AM with sips of Yes 07/04/24 06:58 water? Meds patient instructed to see mar 07/04/24 06:58 take am of surgery PONV PONV - information technology director: PONV - information technology director Female Yes 06/16/24 13:00 HX of Motion Sickness No 06/16/24 13:00 HX of N/V After Surgery No 06/16/24 13:00 Non-Smoker Yes 06/16/24 13:00 Duration of Surgery greater Yes 06/16/24 13:00 than 60 minutes Number of Risk Factors 3 06/16/24 13:00 PONV Score Moderate Risk 06/16/24 13:00 Height & Weight Height & Weight: Anesthesia: Height & Weight Height 5 ft 10 in 07/04/24 06:58 Weight: 105.687 kg 07/04/24 06:58 Body Mass Index (BMI) 33.4 07/04/24 06:58 Respiratory Assessment Respiratory Assessment - information technology director: Respiratory Tract Infection Hx - information technology director Hx Respiratory Tract Infection No 06/16/24 13:00 STOP Sleep Apnea STOP Sleep Apnea - information technology director: STOP Sleep Apnea - information technology director Hx Hypertension Yes: CONTROLLED WITH MED 06/16/24 13:00 Hx Sleep Apnea Yes 06/16/24 13:00 CPAP Yes 06/16/24 13:00 BIPAP No 06/16/24 13:00 Do you snore loudly (louder than talking or can be heard Do you often feel tired/ fatigued/ sleepy during daytime? Has anyone observed you stop breathing during sleep? STOP Results Positive 06/16/24 13:00 QUESTION #5 FULL TEXT : Do you snore loudly (louder than talking or can be heard through closed doors)? Tobacco Use History Tobacco Use History - information technology director: Tobacco Use History - information technology director Tobacco Use Smoking Status Former smoker 06/16/24 13:00 Hx Tobacco Use No 06/16/24 13:00 Years Smoking Packs Smoked per Day Smoking Cessation Date was No - quit smoking greater 06/16/24 13:00 within the last 15 years than 15 years ago Hx Smoking Cessation Date 09/07/77 06/16/24 13:00 Hx Smoking Cessation No 06/16/24 13:00 Counseling Hematologic Medial History Hematologic Hx - information technology director: Hematologic Medical Hx - ed manager Hx of Blood Transfusion Yes 06/16/24 13:00 Hx of Transfusion in last 3 No 06/16/24 13:00 Months Date of Last Transfusion (if within last 3 months) Ever experience any problems No 06/16/24 13:00 with transfusion(s)? Specify any problems Hx of Preganancy in last 3 N/A 06/16/24 13:00 Months Nurse Filling Out Transfusion NBUCHER 06/16/24 13:00 & Questions: Date: 06/16/24 06/16/24 13:00 Time: 13:01 06/16/24 13:00 Patient unable to answer at this time (ie. confused, unrespo /Reproduction History /Reproductive History - information technology director: /Reproductive Hx- information technology director Hx Now Gestational Age (in weeks): EDC: Hx Hx Para Hx Section SAB Active Medications Active Medications: Current Medications Generic Name Dose Route Start Last Admin Trade Name Freq PRN Reason Stop Dose Admin Acetaminophen 1,000 mg 07/04/24 08:45 07/04/24 07:05 Acetaminophen 500 Mg Tablet PO 07/04/24 08:46 1,000 mg X1 ONE Administration Acetaminophen 1,000 mg 07/04/24 14:00 Acetaminophen 500 Mg Tablet PO Q8 [facility] Amlodipine Besylate 10 mg 07/04/24 10:00 Amlodipine 10 Mg Tablet PO DAILY [facility] Protocol Aspirin 81 mg 07/04/24 10:00 Aspirin 81 Mg Tab.Chew PO BID [facility] Atenolol 50 mg 07/04/24 10:00 Atenolol 50 Mg Tablet PO DAILY [facility] Protocol Sodium Chloride 77.4 ml/ 0 ml 07/04/24 08:45 Ropivacaine 200 mg/ OPERA.SITE 07/04/24 08:46 Epinephrine HCl 0.6 mg/ X1 ONE Ketorolac Tromethamine 30 mg/ Morphine Sulfate 5 mg Doxycycline Monohydrate 100 mg 07/05/24 13:00 Doxycycline 100 Mg Capsule PO BID [facility] Enteral Nutritional Formula 237 ml 07/04/24 08:00 Ensure Surgery 237 Ml Liquid PO TIDCM [facility] Famotidine 20 mg 07/04/24 10:00 Famotidine 20 Mg Tablet PO DAILY [facility] Gabapentin 600 mg 07/04/24 08:45 07/04/24 07:05 Gabapentin 600 Mg Tablet PO 07/04/24 08:46 600 mg X1 ONE Administration Lactated Ringer's 1,000 mls @ 999 mls/hr 07/04/24 08:45 07/04/24 07:06 IV 07/04/24 09:45 999 mls/hr .Q1H1M [facility] Administration Tranexamic Acid 1,000 mg/ 110 mls @ 660 mls/hr 07/04/24 08:45 Sodium Chloride IV 07/04/24 08:54 X1 ONE Tranexamic Acid 1,000 mg/ 110 mls @ 660 mls/hr 07/04/24 08:45 Sodium Chloride IV 07/04/24 08:54 X1 ONE Lactated Ringer's 1,000 mls @ 125 mls/hr 07/04/24 08:45 IV 07/04/24 16:44 .Q8H [facility] Cefazolin Sodium 2 gm/ N/A 20 mls @ 400 mls/hr 07/04/24 08:45 IV 07/04/24 08:47 PREOP ONE Magnesium Sulfate 1 gm/ 102 mls @ 408 mls/hr 07/04/24 08:45 07/04/24 07:05 Dextrose IV 07/04/24 08:59 408 mls/hr X1 ONE Administration Cefazolin Sodium 1 gm in 50 mls @ 150 mls/hr 07/04/24 14:00 IV 07/04/24 22:19 Q8 [facility] Insulin Human Lispro 1 - 6 unit 07/04/24 08:45 07/04/24 07:24 Insulin Lispro 100 Unit/Ml Insuln.Pen SC 4 unit Q4H PRN PRN Administration BG>/= 180, SEE PROTOCOL Protocol Morphine Sulfate 2 - 4 mg 07/04/24 06:56 Morphine 2 Mg/Ml Syringe IV Q2H PRN PRN Pain Score 6-10 Multivitamins 1 tablet 07/04/24 10:00 Multivitamins,Therapeutic Tablet PO DAILY [facility] Non-Formulary Medication 5 mg 07/04/24 10:00 Dapagliflozin Propanediol [Farxiga] PO DAILY [facility] Non-Formulary Medication 325 mg 07/04/24 10:00 Ferrous Sulfate PO DAILY [facility] Non-Formulary Medication 5,000 mcg 07/04/24 10:00 Mecobalamin (Vitamin B12) PO DAILY [facility] Non-Formulary Medication 1 mg 07/05/24 07:00 Semaglutide [Ozempic] SC MO [facility] Non-Formulary Medication 10 mg 07/04/24 10:00 Simvastatin PO DAILY [facility] Ondansetron HCl 4 mg 07/04/24 06:56 Ondansetron 4 Mg/2 Ml Vial IV Q8H PRN PRN NAUSEA Oxycodone HCl 5 - 10 mg 07/04/24 06:56 Oxycodone 5 Mg Tablet PO Q4H PRN PRN Pain Score 4-10 Promethazine HCl 12.5 mg 07/04/24 06:56 Promethazine 25 Mg/Ml Syringe IM Q6H PRN PRN NAUSEA/VOMITING Protocol Senna/Docusate Sodium 2 tablet 07/04/24 10:00 Senna/Docusate Sodium 1 Tablet PO BID [facility] Medical History Wears glasses Ambulates with cane Arthritis Prostate disease History of renal disease High cholesterol CPAP (continuous positive airway pressure) dependence Sleep apnea Apnea Urinary retention Low platelet count Hx of sepsis Knee pain Shoulder pain [place] syndrome Vitamin D deficiency Hypertension Hyperlipidemia Diabetes Home Medications ?Medication ?Instructions ?Recorded ?Last Taken ?Type simvastatin 10 mg tablet 10 mg PO DAILY cholesterol 03/13/17 12/23/17 07:00 History 10 mg amlodipine 10 mg tablet 10 mg PO DAILY blood pressure 02/09/24 07/04/24 06:45 History dapagliflozin propanediol 5 mg 5 mg PO DAILY diabetes 02/09/24 Unknown History tablet (Farxiga) ferrous sulfate 325 mg (65 mg 325 mg PO DAILY iron 02/09/24 Unknown History iron) tablet,delayed release semaglutide 1 mg/dose (4 mg/3 mL) 1 mg subcut MO diabetes 02/09/24 06/20/24 History subcutaneous pen injector (Ozempic) atenolol 50 mg tablet 50 mg PO DAILY blood pressure 02/23/24 07/04/24 06:45 History cranberry extract 200 mg capsule 200 mg PO DAILY supplement 02/23/24 Unknown History mecobalamin (vitamin B12) 1,000 5,000 mcg PO DAILY vitamin 02/23/24 Unknown History mcg chewable tablet multivitamin 1 tab PO DAILY vitamin 02/23/24 Unknown History aspirin 81 mg capsule 81 mg PO DAILY 06/16/24 07/01/24 History Allergy/AdvReac Type Severity Reaction Status Date / Time No Known Allergies Allergy Verified 07/04/24 06:56 Family History Mother Obesity Hypertension Diabetes Arthritis Sister Diabetes Cancer Father Alcoholism Surgical History History of cataract extraction with lens replacement History of left knee replacement History of prostate surgery (03/21/24) H/O removal of cyst H/O Spinal surgery History of arthroscopic knee surgery History of hernia repair Hx of cholecystectomy Social History household members: spouse Smoking Status: Former smoker quit date: 09/07/77 alcohol intake: current alcohol intake frequency: holidays/special occasions only substance use type: does not use Review of Systems (Anesthesia) ROS Narrative System reviewed and no additional complaints, except as documented.
[2024-07-04 08:40] LABS: Bedside Glucose 319 mg/dL (74-106)
[2024-07-04] MEDS: Cefazolin 2 GM in Syringe IV (08:42)
--- NOTE | 2024-07-04 08:45 | KNEE_PTH ---
PATIENT: YUDITH KENT LOC: [facility]3 U#:[id number] AGE/SX: 69/M [place] [facility] [place]: Dr. Eduar Sanchez MD : [id number] BED: 1 DIS: 07/05/2024 SPEC #: [id number] RECD: 07/04/24 12:04 STATUS: ROLAND REYvonne #: [id number] TOMMIE: 07/04/24 08:[address]: Eduar Sanchez DEPT: SURGICAL PATHOLOGY RECD BY: Adal Gibson ENTERED: 07/04/24 12:45 SP TYPE: TOTAL KNEE OTHR DR: MD Dr. Pati Shi DO Dr. Nana Yaa Koram, MD Tissues: Knee, NOS Procedures: Decalcification bone/plaque Surgery Specimen Level IV HEADER OPERATION: Total knee replacement robotic arm assist PRE-OP DIAGNOSIS: Severe right knee osteoarthritis with varus deformity TISSUE SUBMITTED: Right knee MICROSCOPIC DIAGNOSIS Bone and soft tissue, right knee, total knee replacement/resection: Pieces of bone with degenerative osteoarthritic changes. Fibroadipose tissue, fibroconnective tissue and reactive synovial tissue. : 07/07/2024 MICROSCOPIC DESCRIPTION Slides are reviewed. GROSS DESCRIPTION Received is one container designated bone and soft tissue right knee. The specimen consists of multiple fragments of antunez-yellow bone measuring in aggregate 11.5 x 12.0 x 3.5 cm. A piece of soft tissue is noted attached to a piece of bone measuring 4.5 x 1.5 x 0.7cm. A number of bony fragments contain articular surfaces consistent with tibial plateau and femoral condyle and displaying prominent osteophyte formation, eburnation and bone erosion. Commercial Artist sections are submitted in two cassettes as follows: 1 - soft tissue, 2 - bone after decalcification. / ANDRIY. 07/04/2024 TC:5 CPT: 66806, 82039
[2024-07-04] MEDS: TXA 1000mg in NS100 100ml (IVPB at Incision) 660 MG IV (08:46)
[2024-07-04] MEDS: Lactated Ringers 1,000 ML 125 ML IV (09:30)
[2024-07-04] MEDS: TXA 1000mg in NS100 100ml (IVPB at Closure) 660 MG IV (09:58)
--- NOTE | 2024-07-04 10:12 | PCM.OPRPT ---
Operative Report (Standard) Operative Information Surgery/Procedure Performed: Minimally invasive right robotic assisted total knee replacement Surgeon: Eduar Sanchez Date of Procedure: 07/04/24 Procedure Start Time: 09:15 Procedure Stop Time: 10:46 Pre-Operative Diagnosis: Right knee primary osteoarthritis Post-Operative Diagnosis: right knee primary osteoarthritis Select all DRAINS/GRAFTS/IMPLANTS that apply: Prosthetic device Prosthetic device details: See body of operative report Type of Anesthesia: Spinal Special Medications: 2 g Ancef, 1 g TXA at incision, 1 g TXA closure, 10 mg Decadron, joint cocktail (5 mg Duramorph, 30 mL of 0.5% Ropivicaine, 1000 units of epinephrine, 30 mg of Toradol) Estimated Blood Loss: 100 Fluids Replaced: 1000 mL crystalloid Specimen collected: Yes Description of specimen(s) removed: Bony cuts Description of surgery: Implants used: 1. Rachel size 6 triathlon cruciate retaining distal femoral press-fit component 2. Rachel size 7 press-fit tritanium tibial baseplate 3. [place] X3 9 mm CS polyethylene 4. Rachel X3 38 mm asymmetric patella Brief history operative indications: 69-year-old M with history of right knee osteoarthritis with radiographic findings with loss of joint space, osteophyte formation and subchondral sclerosis. Failed conservative measures as mentioned in the H&P. Discussion of total knee arthroplasty as well as risk and benefits were discussed the patient including but not limited to blood loss, DVTs, PEs, neurovascular damage, general risk of anesthesia including loss of life, and stiffness or instability were discussed with patient. Patient demonstrated understanding and was able to sign informed consent. Procedure: On the date of procedure patient's right lower extremity was marked in the preoperative area. The patient was then taken back to the operating room where the patient was placed on the table in the supine position. All bony prominences were identified a well-padded. Anesthesia assumed control of the C-spine and airway and remained controlled throughout the remainder of the procedure. A tourniquet was placed on the right upper thigh and the leg was prepped in a sterile fashion. The surgeon then scrubbed at this time .Upon reentering the room right lower extremity was draped in a standard orthopedic fashion. A timeout was then called and everyone agreed upon the side, the site, the procedure to be performed, patient's identity and antibiotics given. Esmarch bandage was used to exsanguinate the extremity and the tourniquet was placed up to 250 mmHg with the knee in flexion. A midline skin incision was made and sharp dissection was taken down through skin subcutaneous tissue and fat. The standard medial parapatellar incision was made and the patella was subluxed laterally. An Appropriate deep MCL release was done and the fat pad was resected. Our attention was then directed to the patella. The patella was everted and a flat resection was made. The knee was then flexed up in 2 femoral pins were placed inside the incision and 2 tibial pins were placed outside the incision in the medial tibia bicortically. Once this was completed the 2 checkpoints in the femur and tibia were placed. Knee was then flexed up and the bony landmarks were registered. Once this was completed knee was taken through range of motion and manually stressed allowing us to a plan for an appropriate tibial cut. The robotic arm was brought into the field sterilely and checkpoint and saw were registered. Based on the patient's deformity the tibial cut was made in 3 degrees of varus. At this time the tensioner was then placed in the joint and ligament tension was checked at 90 degrees and full extension. Based on the patient's ligamentous tension appropriate adjustments were made to the operative plan and ligament releases were done. Once we were happy with our operative plan with balanced flexion and extension gaps our attention was directed to the femur. The robot was brought into the field sterilely and registered. Posterior condylar cuts, anterior chamfer cuts and anterior cuts were appropriately made for a size 6 femur. When these were completed the saws were switched out in the distal femoral and posterior chamfer cuts were made. Protecting the soft tissue throughout this time. A size 7 tibial base plate was selected. the knee was flexed to 90 degrees and the soft tissues and posterior osteophytes were removed from the joint. 40 cc of the periarticular injection was injected into the posterior medial corner of the joint. The appropriate trials were then placed on the femur and tibia. A trial polyethylene was trialed to ensure proper balancing and stability of the knee. The appropriate tibial internal rotation was then marked with a bovie. Our attention was then directed to the patella. The lug holes were drilled and the patella trial was placed. Patellar tracking was checked and deemed appropriate. Once we were happy lug holes were drilled for the femur and trial components were removed. The tibia was subluxed and pinned into place and the keel was punched and drilled appropriately. Final components were verified and opened. The wound was copiously irrigated with normal saline. When the cement was ready the components were impacted into place starting with the tibia then the femur, finally the patella was compressed into place. The trial poly component was placed and the knee was placed in full extension. Once the the implants were secured, the tracking, alignment and balance were verified and a size [] polyethylene component was placed. Once the final components were placed a 3-minute dilute Betadine lavage was performed followed by an Irrisept lavage was performed and the wound was copiously irrigated with normal saline solution and the periarticular injection was given. The wound was closed in a layer berg fashion using #1 vicryl interrupted sutures for the arthrotomy, 2-0 interrupted Vicryl suture for the subcuticular layer and kelsi for final skin closure. A sterile compressive dressing was then placed. The patient was then awakened from anesthesia, transferred to the rwarner and transferred to the PACU for recovery. Post op plan DVT ppx: ASA 81mg BID, thigh high compression stockings Follow up: in office in 2 weeks for wound check PT: to start POD #0 at hospital, outpatient PT should be arranged. Patient be placed on extended oral postoperative antibiotics doxycycline 100 mg p.o. twice daily due to hemoglobin A1c greater than 7 My physician payroll administrative assistant was a vital part of this case, they was important because there was not another skilled set of hands available to their training and aptitude needed for safe and appropriate completion of this case. They were important in appropriate retraction during the case, and protection of soft tissues during bony cuts. In particular the experience and skill of this payroll administrative assistant made for safe retraction and exposure during implantation of medical implants without damage to vital soft tissues or structures. His intimate knowledge of the case and my steps aided in safe and expedient completion of the procedure as well as appropriate position of the leg during the case. He was also vital in assisting with closure under my direct supervision. Due to the complexity of this case robotic arm was used to assist in the surgery to improve accuracy and clinical outcomes. Surgical Findings: Stable knee with the patella tracked [place] Assembler film composer: Yes Securities Consultant: Zev Rhodes Tasks completed by first press operator: Opening & closing, Dissecting tissue, Implanting device and Retracting Complications Complications: No Admit VTE Documentation VTE Present on Admission: No VTE Mechan Device Prophylaxis: SCD's and Thigh High JOSE Hose VTE Pharm Prophylaxis ordered?: Yes
[2024-07-04] MEDS: JPS (Morphine 10mg/ml) OPERA.SITE (10:17)
--- NOTE | 2024-07-04 10:55 | PCM.POST.ANE ---
Anesthesia: Postop Eval I Current Vital Signs Temperature: 97.7 F Pulse Rate: 53 Blood Pressure: 112/96 Respiratory Rate: 16 Pulse Ox: 99 Oxygen Delivery Method: Room Air Assessment Airway patent: Yes Spontaneous unlabored respirations: Yes Mental status: Awake and Calm nausea: No Vomiting: No Anesthesia Complication: No Fluid Hydration Crystalloid volume administer (ml): 1,000 Total IV fluid infused: 1,000 Progress Note Anesthesia document: Postop Eval 1 completed: Yes
--- NOTE | 2024-07-04 11:00 | RAD_ITS ---
STUDY: X-RAY - RIGHT KNEE REASON FOR EXAM: Male, 69 years old. Post op -- AP and Lateral xray of operative knee in PACU TECHNIQUE: 2 view(s) of the knee. COMPARISON: None. FINDINGS: Normal visualized distal femur. Normal visualized proximal tibia and fibula. Normal proximal tibiofibular articulation. The patient is status post right total knee replacement. There is good alignment. Postoperative soft tissue changes. RAD/Knee 1 or 2 Views IMPRESSION: Status post total knee replacement. There is good alignment. Postoperative soft tissue changes. Electronically Signed: Moy Hartmann MD at 12:17 EDT ,
[2024-07-04 11:29] LABS: Bedside Glucose 208 mg/dL (74-106)
[2024-07-04] MEDS: Morphine 2 MG/ML Syringe IV (12:41)
[2024-07-04] MEDS: 0.9% Saline Lock 10 ML Syringe IV (12:42)
--- NOTE | 2024-07-04 13:40 | PN_ITS ---
Subjective Subjective Patient is a 69-year-old male was admitted to the discharge for right knee replacement due to osteoarthritis. He had minimally invasive right robotic assisted total knee replacement on 07/04/2024. Hospitalist service was consulted for medical management. Patient seen and examined. His was by his bedside. He had no complaints. He had an uneventful night. Pain was well-controlled. Review of systems otherwise negative. He has remained hemodynamically stable. Objective Data Objective Data Vital Signs: Vital Signs Temp Pulse Resp BP Pulse Ox O2 Del Method O2 Flow Rate 98.2 F 57 L 18 124/80 H 100 Room Air 4 07/04/24 12:21 07/04/24 12:21 07/04/24 12:50 07/04/24 12:21 07/04/24 12:50 07/04/24 12:50 07/04/24 12:21 Oxygen Flow Rate (L/min) 4 Oxygen Delivery Method Room Air Weight: 233 lb Body Mass Index (BMI) 33.4 Intake & Output: Intake and Output for Last 24 Hours 07/02/24 07/03/24 07/04/24 23:59 23:59 23:59 Intake Total 1342 / 1342 Balance 1342 / 1342 Lab / Micro Data 06/17/24 07:35 06/17/24 07:35 Labs: Laboratory Results - last 24 hr 07/04/24 06:57: POC Glucose 319 H 07/04/24 11:12: POC Glucose 208 H Micro: Microbiology 06/17/24 07:35 Swab (Method) Nasal Screen MRSA/MSSA - Final Radiography Diagnostic Testing: Radiology Impression Knee X-Ray 07/04/24 11:00 IMPRESSION: Status post total knee replacement. There is good alignment. Postoperative soft tissue changes. Electronically Signed: Moy Hartmann MD at 12:17 EDT , Physical Exam Const alert, oriented x3, no apparent distress and well nourished General Appearance: cooperative and well developed HEENT normocephalic, head/scalp atraumatic, moist oral mucous membranes and oropharynx normal Eyes PERRL and EOMs intact bilaterally Neck no lymphadenopathy and supple Lymph Lymphatic: no lymphadenopathy noted Resp normal respiratory effort, normal air movement and clear to auscultation bilaterally Cardio regular rate, regular rhythm, S1 normal heart sound, S2 normal heart sound and no murmurs GI normal to inspection, nondistended, normoactive bowel sounds, soft to palpation and non-tender Extremity Extremity Narrative: intact dressing over right knee General Extremity: no tenderness to palpation of joints or extremities Skin Skin Narrative: as under extremity Neuro CN's II-XII intact bilaterally, no focal motor deficits, no sensory deficits noted and deep tendon reflexes 2+ bilaterally Motor Exam: general weakness Psych thought process normal, cooperative and affect normal Appearance: appropriate Assessment & Plan Assessment/Plan (1) Status post right knee replacement: PLAN: Plan #Right knee osteoarthritis * s/p right minimally invasive robotic assisted total knee replacement * today is POD 0 * PO tylenol, PO oxycodone and IV morphine prn for pain * PT/OT on board * fall precautions * incentive spirometry * #Type 2 diabetes mellitus: on semaglutide and dapagliflozin. ISS. Accuchecks ACHS #BPH with obstruction: #History of Gilbert syndrome: #Hypertension: on amlodipine and atenolol. #Hyperlipidemia: on statin DVT prophylaxis: aspirin 81mg bid, per orthopedic surgery. the primary service Thank you for the courtesy of the consult. THe hospitalist service will continue to follow with you. Charges/Coding Visit Charges Inpatient E&M: 71742 Subs Hosp L2
--- NOTE | 2024-07-04 15:49 | POSTOPAN2_ITS ---
Anesthesia Postop Eval I Sum Postop Eval Completion status Anesthesia document: Postop Eval 1 completed: Yes Anesthesia Postop Eval I Summary Anesthesia Postop Eval I Summary: Anesthesia Postop Eval I: Assessment Summary Airway patent Yes 07/04/24 10:56 [email or web address] [email or web address] Spontaneous unlabored Yes 07/04/24 10:56 [email or web address] [email or web address] respirations Mental status Awake,Calm 07/04/24 10:56 [email or web address] nausea No 07/04/24 10:56 [email or web address] [email or web address] Vomiting No 07/04/24 10:56 [email or web address] [email or web address] Anesthesia Postop Eval I: Fluid Summary Crystalloid volume administer 1,000 07/04/24 10:56 [email or web address] [email or web address] (ml) Colloids volume administered ( ml) Blood Product volume administered (ml) Total IV fluid infused 1,000 07/04/24 10:56 [email or web address] Anesthesia Postop Eval I: Summary Notes Anesthesia Complication No 07/04/24 10:56 [email or web address] Anesthesia Complication Comment: Post-operative progress note Anesthesia: Postop Eval II Evaluation Mental status: Awake and Calm Pain Level: 1 nausea: No Vomiting: No Complications Anesthesia Complication: No
--- NOTE | 2024-07-04 15:49 | PCM.POSTANE2 ---
Anesthesia Postop Eval I Sum Postop Eval Completion status Anesthesia document: Postop Eval 1 completed: Yes Anesthesia Postop Eval I Summary Anesthesia Postop Eval I Summary: Anesthesia Postop Eval I: Assessment Summary Airway patent Yes 07/04/24 10:56 [email or web address] Spontaneous unlabored Yes 07/04/24 10:56 [email or web address] respirations Mental status Awake,Calm 07/04/24 10:56 [email or web address] nausea No 07/04/24 10:56 [email or web address] Vomiting No 07/04/24 10:56 [email or web address] Anesthesia Postop Eval I: Fluid Summary Crystalloid volume administer 1,000 07/04/24 10:56 [email or web address] (ml) Colloids volume administered ( ml) Blood Product volume administered (ml) Total IV fluid infused 1,000 07/04/24 10:56 [email or web address] Anesthesia Postop Eval I: Summary Notes Anesthesia Complication No 07/04/24 10:56 [email or web address] Anesthesia Complication Comment: Post-operative progress note Anesthesia: Postop Eval II Evaluation Mental status: Awake and Calm Pain Level: 1 nausea: No Vomiting: No Complications Anesthesia Complication: No
[2024-07-04 17:14] LABS: Bedside Glucose 244 mg/dL (74-106)
[2024-07-04] MEDS: Cefazolin 1 GM/50 ML BAG IV (17:15)
[2024-07-04] MEDS: Aspirin 81 MG TAB.CHEW PO (17:15)
[2024-07-04] MEDS: Senna/Docusate Sodium 1 Tablet 2 TABLET PO (20:20)
[2024-07-04] MEDS: Atorvastatin Calcium 10 MG Tablet 5 MG PO (20:20)
[2024-07-04 22:39] LABS: Bedside Glucose 325 mg/dL (74-106)
[2024-07-05 00:15] VITALS: BP 150/86; PULSE 67; RESP 16; TEMP 36.8; O2SAT 98
[2024-07-05] MEDS: Cefazolin 1 GM/50 ML BAG IV (00:17)
[2024-07-05] MEDS: oxyCODONE 5 MG Tablet PO ×3 (03:46→11:58)
[2024-07-05 04:00] VITALS: BP 146/99; PULSE 76; RESP 16; TEMP 37.2; O2SAT 97
[2024-07-05 04:15] VITALS: BP 148/80; PULSE 74; RESP 16; TEMP 37; O2SAT 96
[2024-07-05 05:43] LABS: Bedside Glucose 206 mg/dL (74-106)
[2024-07-05] MEDS: Acetaminophen 500 MG Tablet 1000 MG PO ×2 (05:55→13:23)
[2024-07-05] MEDS: Insulin Lispro 100 UNIT/ML INSULN.PEN SC ×2 (05:58→11:57)
[2024-07-05 06:46] LABS: Bedside Glucose 208 mg/dL (74-106)
[2024-07-05 07:03] LABS: Hematocrit 34.4 % (40-54); Hemoglobin 11.8 g/dL (13.0-16.5); Mean Corp Hgb Conc 34.3 g/dL (32-36); Mean Corpuscular Hgb 28.6 pg (27.0-32.0); Mean Corpuscular Volume 83.5 fL (80-94); Mean Platelet Vol. 10.3 fl (6.2-12.0); POSITIVE COUNT YES; Platelet Count 94 K/mm3 (150-450); RBC Distribution Width CV 14.6 % (11.6-14.6); RBC Distribution Width SD 44.4 fl (35.1-43.9); Red Blood Count 4.12 M/mm3 (4.6-6.2); White Blood Count 6.6 K/mm3 (4.4-11.0)
--- NOTE | 2024-07-05 07:14 | PCM.PN.ORT ---
Subjective Subjective The patient was sitting in bed upon examination. Patient denies any chest pain, shortness of breath, dizziness, lightheadedness, nausea or vomiting, or calf pain. Pain is controlled on medications. No adverse overnight events. Patient has been able to urinate on his own. He has been up standing. Pain has been overall well-controlled so far and I do feel the block is still providing relief. Patient has had a previous left total knee arthroplasty in March 2024 which was followed by a manipulation under anesthesia. We did reach out to the primary care provider in which they do not recommend any nonsteroidal anti-inflammatory due to chronic kidney disease. Objective Data Objective Data Vital Signs: Vital Signs Temp Pulse Resp BP Pulse Ox O2 Del Method O2 Flow Rate 98.6 F 74 16 148/80 H 96 Room Air 4 07/05/24 04:15 07/05/24 04:15 07/05/24 04:15 07/05/24 04:15 07/05/24 04:15 07/05/24 04:15 07/04/24 12:21 Oxygen Flow Rate (L/min) 4 Oxygen Delivery Method Room Air Weight: 105.687 kg Body Mass Index (BMI) 33.4 Intake & Output: Intake and Output for Last 24 Hours 07/03/24 07/04/24 07/05/24 23:59 23:59 23:59 Intake Total 2367.92 / 2367.92 850 / 850 Balance 2367.92 / 2367.92 850 / 850 Lab / Micro Data 07/05/24 05:58 07/05/24 05:58 Labs: Laboratory Results - last 24 hr 07/04/24 06:57: POC Glucose 319 H 07/04/24 09:07: POC Glucose 206 H 07/04/24 11:12: POC Glucose 208 H 07/04/24 16:50: POC Glucose 244 H 07/04/24 20:17: POC Glucose 325 H 07/05/24 05:56: POC Glucose 208 H 07/05/24 05:58: WBC 6.6, RBC 4.12 L, Hgb 11.8 L, Hct 34.4 L, MCV 83.5, MCH 28.6, MCHC 34.3, RDW Std Deviation 44.4 H, RDW Coeff of Juan Carlos 14.6, Plt Count 94 L, MPV 10.3 Micro: Microbiology 06/17/24 07:35 Swab (Method) Nasal Screen MRSA/MSSA - Final Radiography Diagnostic Testing: Radiology Impression Knee X-Ray 07/04/24 11:00 IMPRESSION: Status post total knee replacement. There is good alignment. Postoperative soft tissue changes. Electronically Signed: Moy Hartmann MD at 12:17 EDT , Physical Exam Narrative Vital signs stable and afebrile. SCDs and JOSE hose are in place bilaterally Patient is able to plantarflex and dorsiflex actively. Sensation is intact to light touch to saphenous, sural, superficial and deep peroneal, and tibial distribution. Dressings are clean dry and intact. Negative Homans bilaterally, negative signs and symptoms of DVT. Const alert, oriented x3 and no apparent distress Assessment & Plan Assessment/Plan (1) Status post total right knee replacement: PLAN: 1. S/P right robotic assisted total knee arthroplasty POD #1 2. Continue Pain Medications: Tylenol and oxycodone. We did reach out to the primary care physician and they do not recommend any nonsteroidal anti-inflammatory use due to describing kidney disease. Patient is aware of this. 3. DVT Prophylaxis: Take 81 mg aspirin twice daily for 4 weeks postoperatively for DVT prophylaxis. Patient denies past history of DVT or pulmonary embolism. After 4 weeks patient will then go back to his normal 81 mg aspirin daily 4. PT/OT: Weightbearing as tolerated with walker 5. H & H: 11.8/34.4, asymptomatic. Labs have been reviewed. BMP is also been reviewed. Patient's chronic kidney disease is stable. Patient does have platelets of 94,000. He does have history of thrombocytopenia. Preoperatively he was at 126,000. Plan will be for patient to repeat labs and follow-up with the PCP in 1-2 weeks 6. Currently on doxycycline for 2 weeks postoperatively due to elevated A1c greater than 7.0. I discussed with the patient potential side effects of doxycycline including sensitivity to the sunlight and increased risk of skin burn. Recommend patient take appropriate precautions. Also recommend patient to take probiotic while on the antibiotic. Patient voiced understanding agreement. 7. Encouraged Incentive Spirometry 8. Patient is aware of postoperative constipation that can occur from 1-3 days postoperatively. Will continue with senna 2 tablets twice daily until first bowel movement. Patient was advised if not having a bowel movement after day 3 she is to contact orthopedics so appropriate change can be made. Patient voiced understanding. 9. Continue postoperative medical treatment per medicine: I did reach out to hospitalist and appreciate recommendations prior to discharge. 10. Disposition: Plan will be for probable discharge home this afternoon as long as patient remains medically stable, tolerates therapy, and pain is adequately controlled. Patient does have chronic history of thrombocytopenia. Plan will be for patient to repeat CBC and follow-up with the PCP in 1-2 weeks. Lab order will be placed on chart. He is also had some decrease in his hemoglobin in which he takes ferrous sulfate. I would defer to the primary care physician for how long patient should be on this medication. I did advise him to contact his PCP. Patient does have outpatient physical therapy established. He will follow-up per postoperative instructions. He would like his medications E scribed to [email or web address] in [facility]. Upon discharge patient will contact our office with any concerns or questions. If medically cleared today okay for discharge from orthopedic standpoint. I did reach out to medicine and appreciate any further recommendations. I have reviewed the [employer] Reporting System (OARRS) report for this patient for refill pattern and other prescriber involvement as part of the appropriate surveillance for the provision of acute and chronic controlled medications. The report was requested and reviewed on the date of this entry and was considered in the prescribing process. This dictation was created using voice recognition software. Phonetic and/or grammatical errors may exist.
--- NOTE | 2024-07-05 07:28 | PCM.DC ---
Discharge Instructions Diet Discharge Diet: No restrictions Activity Discharge Activity: May Not Drive (No driving for 6 weeks postoperatively. Must also be off all narcotics and able to walk 100 feet without the use of cane or walker.) May shower in (days): 1 (Please turn dressing away from water. Okay to get wet as long as dressing is intact to skin.) Ice area for (Minutes): 20 (Every 1-2 hours while awake. Please place barrier between the skin and ice pack.) Weight Bearing Status: Weight bearing as tolerated Keep extremity elevated above heart level: Operative Extremity Dressing / Incision Call your doctor if your incision/area has: Continuous Slow Oozing, Sudden Increased Bleeding, Increased Pain/ Swelling, Increased Redness and Foul Smelling Discharge Call your doctor if you observe: Fever of 101 or Higher, Coldness, Increased Pain, Numbness or Tingling, Change in Color, Shortness of breath, Chest pain, Calf discomfort and Uncontrolled pain Remove Dressing in: 4 days (Okay to remove dressings on July 09, 2024) Additional Dressing/Incision Instructions:: Follow [facility] Post-op Instructions. Once postoperative dressing has been removed only use gentle soap and water over the incision. Do not use any ointments, Neosporin, salves, alcohol pads over the incision for 6 weeks postoperatively. Do not submerge underwater for 6 weeks postoperatively. Continue with JOSE hose/elastic stockings for 2 weeks postoperatively. May remove at nighttime but needs to be placed back on the leg during the day. Do NOT use alcohol with narcotic pain medication. Do NOT make important decisions while taking narcotic medication. If you have problems with taking your medication (rash, itching, nausea, etc.) call the office at once. Follow Up Care Test Results: Test results from this visit will be discussed in further detail at your follow-up appointment, if applicable. Discharge Plan Admission Admit Date/Time: 07/04/24 06:56 Attending Provider: Eduar Sanchez Primary Care Provider: Pati Amaya Consulting Providers: Michael Ward; Karina Hylton Discharge Orders/Prescriptions Prescriptions: New acetaminophen 500 mg Tablet 1,000 mg PO Q8 14 Days Qty: 84 0RF Rx Instructions: Do not take more than 3000 mg Tylenol in a 24-hour period. aspirin 81 mg capsule 81 mg PO BIDCM Qty: 0 0RF Rx Instructions: Take 81 mg aspirin twice daily for 4 weeks postoperatively for DVT prophylaxis. After 4 weeks you can then go back to your normal 81 mg aspirin daily famotidine 20 mg Tablet 20 mg PO DAILY 30 Days Qty: 30 0RF doxycycline monohydrate 100 mg Capsule 100 mg PO BID 14 Days Qty: 28 0RF Rx Instructions: Take for 2 weeks postoperatively oxycodone 5 mg Tablet 5 - 10 mg PO Q4H PRN PRN (Reason: Pain Score 4-10) 7 Days Qty: 42 0RF sennosides-docusate sodium [Stimulant Laxative Plus] 8.6-50 mg Tablet 2 tab PO BID 7 Days Qty: 28 0RF Rx Instructions: Take until first bowel movement, then as needed Continued atenolol 50 mg tablet 50 mg PO DAILY cranberry extract 200 mg capsule 200 mg PO DAILY Rx Instructions: administer with a meal multivitamin Tablet 1 tab PO DAILY Ozempic 1 mg/dose (4 mg/3 mL) pen injector 1 mg subcut MO dapagliflozin propanediol [Farxiga] 5 mg tablet 5 mg PO DAILY ferrous sulfate 325 mg (65 mg iron) tablet,delayed release (DR/EC) 325 mg PO DAILY mecobalamin (vitamin B12) 1,000 mcg tablet,chewable 5,000 mcg PO DAILY simvastatin 10 MG tablet 10 mg PO DAILY amlodipine 10 mg tablet 10 mg PO DAILY Discontinued aspirin 81 mg capsule 81 mg PO DAILY Other Ambulatory Orders: 12 Lead EKG (Routine) Timeframe: [id number] Location: None Selected Ordered By: Dr. Eduar Sanchez CBC-Complete Blood Cnt No Diff (Routine) Timeframe: 2 Weeks Facility: [facility] - Location: Laboratory Ordered By: Zev BORGES Referrals / Follow Up: Physical,Therapy [Other] - 07/07/24 3:00 pm Pati Amaya DO [Primary Care Provider] - 07/13/24 9:30 am (follow up in 1-2 weeks with repeat labs) Abdoul Akhtar PA-C [Med Staff - [facility]] - 07/18/24 10:15 am Disposition Disposition (needs filled in before D/C Order can be placed): Home, Self Care
[2024-07-05 07:30] LABS: Anion Gap 5 (5-15); BUN 27 mg/dL (7-18); BUN/Creat Ratio 17.8 RATIO (10-20); Calcium,Total 8.7 mg/dL (8.5-10.1); Chloride 104 mmol/L (98-107); Creatinine, Serum 1.52 mg/dL (0.70-1.30); EST Glomerular Filtration Rate 48 mL/min (>60); Est Glom Filt Rate - Afr Amer 58 mL/min (>60); Estimated Creatinine Clearance 54.27 ml/min; Glucose 202 mg/dL (74-106); Sodium Level 138 mmol/L (136-145)
[2024-07-05 07:57] VITALS: BP 142/71; PULSE 70; RESP 16; TEMP 36.8; O2SAT 96
[2024-07-05] MEDS: Aspirin 81 MG TAB.CHEW PO (08:02)
[2024-07-05] MEDS: Multivitamins,Therapeutic Tablet 1 TABLET PO (08:02)
[2024-07-05] MEDS: Ferrous Sulfate 325 MG Tablet PO (08:02)
[2024-07-05] MEDS: Atenolol 50 MG Tablet PO (08:02)
--- NOTE | 2024-07-05 09:37 | CASEMGMT ---
Met with patient to complete LEON form. LEON form explained to patient who voiced understanding and signed form. Original form placed in pt?s chart and copy provided to patient. Zandra Nava, Discharge Planning Asst
[2024-07-05] MEDS: Famotidine 20 MG Tablet PO (10:18)
[2024-07-05] MEDS: Empagliflozin 10 MG Tablet PO (10:18)
[2024-07-05] MEDS: amLODIPine 10 MG Tablet PO (10:18)
[2024-07-05] MEDS: Senna/Docusate Sodium 1 Tablet 2 TABLET PO (10:18)
--- NOTE | 2024-07-05 10:29 | PN_ITS ---
Subjective Subjective Patient seen and examined. He was working with PT/OT and complained of pain in his right knee. He had no other complaints. Review of systems is otherwise negative. Objective Data Objective Data Vital Signs: Vital Signs Temp Pulse Resp BP Pulse Ox O2 Del Method O2 Flow Rate 98.2 F 70 16 142/71 H 96 Room Air 4 07/05/24 07:57 07/05/24 07:57 07/05/24 07:57 07/05/24 07:57 07/05/24 07:57 07/05/24 07:57 07/04/24 12:21 Oxygen Flow Rate (L/min) 4 Oxygen Delivery Method Room Air Weight: 233 lb Body Mass Index (BMI) 33.4 Intake & Output: Intake and Output for Last 24 Hours 07/03/24 07/04/24 07/05/24 23:59 23:59 23:59 Intake Total 2367.92 / 2367.92 850 / 850 Balance 2367.92 / 2367.92 850 / 850 Lab / Micro Data 07/05/24 05:58 07/05/24 05:58 Labs: Laboratory Results - last 24 hr 07/04/24 09:07: POC Glucose 206 H 07/04/24 11:12: POC Glucose 208 H 07/04/24 16:50: POC Glucose 244 H 07/04/24 20:17: POC Glucose 325 H 07/05/24 05:56: POC Glucose 208 H 07/05/24 05:58: WBC 6.6, RBC 4.12 L, Hgb 11.8 L, Hct 34.4 L, MCV 83.5, MCH 28.6, MCHC 34.3, RDW Std Deviation 44.4 H, RDW Coeff of Juan Carlos 14.6, Plt Count 94 L, MPV 10.3, Sodium 138, Potassium 4.0, Chloride 104, Carbon Dioxide 29.0, Anion Gap 5, BUN 27 H, Creatinine 1.52 H, Estim Creat Clear Calc 54.27, Est GFR (MDRD) Af Amer 58 L, Est GFR (MDRD) Non-Af 48 L, BUN/Creatinine Ratio 17.8, Glucose 202 H, Calcium 8.7 Micro: Microbiology 06/17/24 07:35 Swab (Method) Nasal Screen MRSA/MSSA - Final Radiography Diagnostic Testing: Radiology Impression Knee X-Ray 07/04/24 11:00 IMPRESSION: Status post total knee replacement. There is good alignment. Postoperative soft tissue changes. Electronically Signed: Moy Hartmann MD at 12:17 EDT , Physical Exam Const alert, oriented x3, no apparent distress and well nourished General Appearance: cooperative and well developed HEENT normocephalic, head/scalp atraumatic, moist oral mucous membranes and oropharynx normal Eyes PERRL and EOMs intact bilaterally Neck no lymphadenopathy and supple Lymph Lymphatic: no lymphadenopathy noted Resp normal respiratory effort, normal air movement and clear to auscultation bilaterally Cardio regular rate, regular rhythm, S1 normal heart sound, S2 normal heart sound and no murmurs GI normal to inspection, nondistended, normoactive bowel sounds, soft to palpation and non-tender Extremity Extremity Narrative: intact dressing over right knee General Extremity: no tenderness to palpation of joints or extremities Skin Skin Narrative: as under extremity Neuro CN's II-XII intact bilaterally, no focal motor deficits, no sensory deficits noted and deep tendon reflexes 2+ bilaterally Motor Exam: general weakness Psych thought process normal, cooperative and affect normal Appearance: appropriate Assessment & Plan Assessment/Plan (1) Status post right knee replacement: PLAN: Plan #Right knee osteoarthritis * s/p right minimally invasive robotic assisted total knee replacement * today is POD 1 * PO tylenol, PO oxycodone and IV morphine prn for pain * PT/OT on board * fall precautions * incentive spirometry * #Type 2 diabetes mellitus: on semaglutide and dapagliflozin. ISS. Accuchecks ACHS #Thrombocytopenia * platelets are 94 today. * Has a history of thrombocytopenia. * Also gone as low as 68 in the past. Was 124 yesterday but is 4 today. * Platelets have always fluctuated. * Will need follow-up with his PCP on outpatient basis for recheck within 2 to 3 days. * #Hypertension: on amlodipine and atenolol. #Hyperlipidemia: on statin DVT prophylaxis: aspirin 81mg bid, per orthopedic surgery. the primary service Thank you for the courtesy of the consult. Patient is stable for discharge from hospitalist standpoint Charges/Coding Visit Charges Inpatient E&M: 18132 Subs Hosp L2
[2024-07-05 11:20] LABS: Bedside Glucose 243 mg/dL (74-106)
--- NOTE | 2024-07-05 11:26 | CASEMGMT ---
AIMEE WANG Assessment Face to Face with patient for initial transition planning/care coordination assessment. AIMEE WANG introduced self and role at [facility], pt voices understanding. Pt is A&Ox4 and is resting comfortably in bed and is calm. Care providers, pharmacy, and demographics verified. Admitting dx:TKA LACE Strata: 2 PCP: Pati Amaya Specialists: Gary (Uro), Laura (Ortho), Ash (Derm) Preferred Pharmacy: [facility] Insurance: [facility] A/B, [employer] Supp Prescription Benefit: Yes LNOK: Marifer Gonzales (W) Living Arrangements: Pt lives with his in a 2 story home with a FFSU and 2 steps to enter ADLs/IADLs: Ind Transportation: Self, . Denies concerns DME: CPAP at HS with no additional oxygen, BGM with sufficient supplies, Shower chair, cane, FWW, raised toilet seat HHC/SNF: denies history or needs. Pt has been to [facility] in the past for OP Tx (for his other knee) Pt?s goal: Home with OP Tx Plan: Home with OP Tx through [facility]. Pt states that this is already set up as he is scheduled to start on 07/07 and denies further needs. Report given to DICK YU CM. Ally Bernardo RN, CM
[2024-07-05 13:19] VITALS: BP 153/82; PULSE 76; RESP 16; TEMP 36.9; O2SAT 98
[2024-07-05] MEDS: Doxycycline 100 MG CAPSULE PO (13:23)
[2024-07-05 14:00] VITALS: BP 153/82; PULSE 76; RESP 18; TEMP 36.9; O2SAT 98
== END 2024-07-05 14:03 | disposition home or self-care (01) ==
LOC: SDC 11:10 → MS3 11:10
PROVIDERS: Anesthesiology; Admitting Provider Specialist; PCP Internal Medicine; Referring Provider Specialist; Visit Provider Specialist
PROC: 0SRC0JZ Replacement of Right Knee Joint with Synthetic Substitute, Open Approach (ICD-10-PCS; CPT 27447; principal; 2024-07-04 08:15)
DX: M17.11 Unilateral primary osteoarthritis, right knee (principal); E11.22 Type 2 diabetes mellitus with diabetic chronic kidney disease; Z79.84 Long term (current) use of oral hypoglycemic drugs; D69.6 Thrombocytopenia, unspecified; E78.00 Pure hypercholesterolemia, unspecified; K21.9 Gastro-esophageal reflux disease without esophagitis; Z87.891 Personal history of nicotine dependence; N18.9 Chronic kidney disease, unspecified; I12.9 Hypertensive chronic kidney disease with stage 1 through stage 4 chronic kidney disease, or unspecified chronic kidney disease; G47.30 Sleep apnea, unspecified; N40.1 Benign prostatic hyperplasia with lower urinary tract symptoms; Z79.899 Other long term (current) drug therapy; Z79.82 Long term (current) use of aspirin; M21.161 Varus deformity, not elsewhere classified, right knee; E66.9 Obesity, unspecified; Z68.32 Body mass index [BMI] 32.0-32.9, adult; N13.8 Other obstructive and reflux uropathy; E80.4 Gilbert syndrome
CPT/HCPCS: 27447; S2900; 01402; 64448; 36415; 73560; 80048; 82040; 82962; 83036; 83735; 85025; 85027; 87081; 88305; 88311; 93005; 94668; 96365; 96366; 96375; 97110; 97116; 97162; 97166; 97530; 99221; 99252; C1776; J7120; A4216; G0378; G0463; J3475